=== PATIENT | male | born 1945 | race Caucasian/White ===

== ENCOUNTER 2019-05-09 12:01 | Observation (INO) ==
[2019-05-09] MEDS ORDERED: Naloxone 0.4 MG/ML INJ IVP ONE (12:09)
[2019-05-09] MEDS ORDERED: Ipratropium/Albuterol Neb 3 ML IH ONE (12:20)
[2019-05-09] MEDS ORDERED: Ipratropium/Albuterol Neb 3 ML ONE (12:41)
[2019-05-09 12:43] LABS: Bilirubin,Urine Negative (Negative); Blood,Urine Negative (Negative); Clarity,Urine Clear (Clear); Color,Urine Yellow (Yellow); Glucose,Urine (UA) Normal (Normal); Ketones,Urine Negative (Negative); Leukocyte Esterase,Urine Negative (Negative); Nitrite,Urine Negative (Negative); PH,Urine 6.5 pH Units (5.0-8.0); Protein,Urine Trace mg/dL (Neg-Trace); Specific Gravity,Urine 1.021 (1.010-1.025); Urobilinogen,Urine Normal (Normal)
[2019-05-09 12:54] LABS: Amphetamine Screen,Urine Negative ng/mL (Cutoff=1000); Barbiturate Screen,Urine Negative ng/mL (Cutoff=200); Benzodiazepines Screen,Urine Positive ng/mL (Cutoff=200); Cannabinoid Screen,Urine Positive ng/mL (Cutoff = 50); Cocaine Screen,Urine Negative ng/mL (Cutoff= 300); Opiate Screen,Urine Positive ng/mL (Cutoff=300); Phencyclidine Screen,Urine Negative ng/mL (Cutoff=25)
[2019-05-09 13:01] LABS: ABG Base Excess 14 mEq/L (-2 to 3); ABG HCO3 43 mEq/L (21-27); ABG Oxygen Saturation 95 % (95-98); ABG PCO2 77 mmHg (35-45); ABG PH 7.35 pH Units (7.32-7.45); ABG PO2 84 mmHg (85-104); ABG TCO2 45 mEq/L (20-26)
[2019-05-09 13:35] LABS: Basophils % 0.2 %; Eosinophils % 0.2 %; Hematocrit 37.5 % (37.5-50.1); Hemoglobin 11.7 g/dL (12.9-16.9); Immature Granulocytes % 0.3 % (0-4); Lymphocytes # 0.4 K/mcL (0.6-4.6); Lymphocytes % 4.4 %; Mean Corpuscular HGB Conc 31.2 g/dL (31.6-35.5); Mean Corpuscular Hemoglobin 30.4 pg (28.0-33.3); Mean Corpuscular Volume 97.4 fL (83.0-100.0); Mean Platelet Volume 8.2 fL (9.4-12.4); Monocytes # 0.7 K/mcL (0.0-1.3); Monocytes % 6.7 %; Neutrophils # 8.7 K/mcL (1.6-8.9); Platelet Count 296 K/mcL (140-400); Red Blood Count 3.85 M/mcL (4.19-5.50); Red Cell Distribution Width 13.6 % (11.5-14.5); Segmented Neutrophils % 88.2 %; White Blood Count 9.8 K/mcL (4.3-11.1)
[2019-05-09 14:15] LABS: Alanine Aminotransferase 13 Units/L (7-52); Albumin 3.3 g/dL (3.5-5.7); Albumin/Globulin Ratio 0.9 (1.1-2.2); Alkaline Phosphatase 84 Units/L (34-104); Aspartate Amino Transferase 12 Units/L (13-39); BUN/Creatinine Ratio 18 (6-26); Bilirubin,Direct 0.1 mg/dL (0.0-0.2); Bilirubin,Indirect 0.3 mg/dL (0.0-1.0); Bilirubin,Total 0.4 mg/dL (0.3-1.0); Blood Urea Nitrogen 15 mg/dL (8-23); Calcium 9.1 mg/dL (8.6-10.3); Carbon Dioxide > 45 mEq/L (23-29); Chloride 92 mEq/L (98-107); Ethanol < 10 mg/dL (Less than 10); Globulin 3.5 g/dL (2.4-3.5); Glucose 106 mg/dL (70-105); Osmolality,Calculated 285 (280-300); Sodium 137 mEq/L (136-145); Total Protein 6.8 g/dL (6.4-8.9); Troponin I < 0.03 ng/mL (< 0.04); eGFR For African Americans > 60 (> 60); eGFR For Non-African Americans > 60 (> 60)
[2019-05-09] MEDS ORDERED: Ondansetron ODT 4 MG TAB.RAPDIS SL PRN (15:51)
[2019-05-09] MEDS ORDERED: Acetaminophen 325 MG TABLET PO PRN (15:51)
[2019-05-09] MEDS ORDERED: Naloxone 0.4 MG/ML INJ IVP PRN (15:51)
[2019-05-09] MEDS ORDERED: Diclofenac Sodium (DR) 75 MG TABLET.DR PO PRN (15:54)
[2019-05-09] MEDS ORDERED: GuaiFENesin Liq 200 MG/10 ML UDC PO PRN (15:54)
[2019-05-09] MEDS ORDERED: traZODone 50 MG TABLET PO PRN (15:54)
[2019-05-09 16:00] LABS: ABG Base Excess 15 mEq/L (-2 to 3); ABG HCO3 43 mEq/L (21-27); ABG Oxygen Saturation 89 % (95-98); ABG PCO2 70 mmHg (35-45); ABG PO2 61 mmHg (85-104); ABG TCO2 46 mEq/L (20-26)
[2019-05-09] MEDS: *HR* Heparin 5,000 UNIT/ML VIAL SQ SCH (18:12)
[2019-05-09] MEDS: Gabapentin 300 MG CAPSULE PO SCH (21:14)
[2019-05-09] MEDS: Lidocaine OINT 35.44 GM TUBE TP SCH (21:14)
[2019-05-09] MEDS: Budesonide/Formoterol 160/4.5 1 PUFF INH IH SCH (22:03)
[2019-05-10] MEDS: *HR* Heparin 5,000 UNIT/ML VIAL SQ SCH ×2 (05:04→18:50)
[2019-05-10 06:05] LABS: Hematocrit 39.3 % (37.5-50.1); Hemoglobin 12.3 g/dL (12.9-16.9); Mean Corpuscular HGB Conc 31.3 g/dL (31.6-35.5); Mean Corpuscular Hemoglobin 29.9 pg (28.0-33.3); Mean Corpuscular Volume 95.6 fL (83.0-100.0); Mean Platelet Volume 8.3 fL (9.4-12.4); Platelet Count 341 K/mcL (140-400); Red Blood Count 4.11 M/mcL (4.19-5.50); Red Cell Distribution Width 13.6 % (11.5-14.5); White Blood Count 8.3 K/mcL (4.3-11.1)
[2019-05-10 06:08] LABS: VBG HCO3 37 mEq/L (21-27); VBG PCO2 65 mmHg (41-51); VBG PH 7.36 pH Units (7.32-7.42); VBG PO2 66 mmHg (25-50)
[2019-05-10 06:22] LABS: BUN/Creatinine Ratio 20 (6-26); Blood Urea Nitrogen 14 mg/dL (8-23); Carbon Dioxide 38 mEq/L (23-29); Chloride 91 mEq/L (98-107); Glucose 93 mg/dL (70-105); Osmolality,Calculated 280 (280-300); Phosphorous 3.2 mg/dL (2.7-4.5); Potassium 3.9 mEq/L (3.5-5.1); Sodium 135 mEq/L (136-145); eGFR For African Americans > 60 (> 60); eGFR For Non-African Americans > 60 (> 60)
[2019-05-10] MEDS: Budesonide/Formoterol 160/4.5 1 PUFF INH IH SCH ×2 (07:47→22:03)
[2019-05-10] MEDS ORDERED: Ipratropium/Albuterol Neb 3 ML IH ONE (08:27)
[2019-05-10] MEDS: Diltiazem CD (24hr) 180 MG CAPSULE PO SCH (08:29)
[2019-05-10] MEDS: Metoprolol XL (24 HR) Succ 50 MG TAB.ER.24H PO SCH (08:29)
[2019-05-10] MEDS: Aspirin 81 MG TAB.CHEW PO SCH (08:29)
[2019-05-10] MEDS: Lidocaine OINT 35.44 GM TUBE TP SCH ×2 (08:32→20:34)
[2019-05-10] MEDS: Fluticasone Propionate Nasal 50 MCG/SPRAY BOTTLE NS SCH (08:32)
[2019-05-10] MEDS: Ketorolac 30 MG/ML VIAL IVP PRN (18:47)
[2019-05-10] MEDS: Gabapentin 300 MG CAPSULE PO SCH (20:34)
[2019-05-11] MEDS: Ipratropium/Albuterol Neb 3 ML IH PRN ×2 (04:18→07:55)
[2019-05-11] MEDS: *HR* Heparin 5,000 UNIT/ML VIAL SQ SCH (06:09)
[2019-05-11] MEDS: Budesonide/Formoterol 160/4.5 1 PUFF INH IH SCH (07:52)
[2019-05-11] MEDS: Metoprolol XL (24 HR) Succ 50 MG TAB.ER.24H PO SCH (07:55)
[2019-05-11] MEDS: Aspirin 81 MG TAB.CHEW PO SCH (07:55)
[2019-05-11] MEDS: Diltiazem CD (24hr) 180 MG CAPSULE PO SCH (07:55)
[2019-05-11] MEDS: Fluticasone Propionate Nasal 50 MCG/SPRAY BOTTLE NS SCH (07:56)
[2019-05-11] MEDS: Ketorolac 30 MG/ML VIAL IVP PRN ×2 (08:06→15:49)
[2019-05-11 12:34] VITALS: BP 142/75
== END 2019-05-11 16:51 | disposition home health service (06) ==
LOC: EMEROOARM 12:01 → SUATTDRO 16:34 → INTOOBSV 16:34 → 2NNU 16:34 → 3ANU 05-10 15:07
PROVIDERS: ADMIT Internal Medicine; ATTEND Internal Medicine

== ENCOUNTER 2019-12-24 22:41 | Inpatient (IN) ==
[2019-12-24] MEDS ORDERED: 0.9 % Sodium Chloride 1,000 ML IVC ONE (22:51)
[2019-12-24] MEDS ORDERED: Isovue-370 500 ML BOTTLE IVP ONE (22:59)
[2019-12-24] MEDS ORDERED: methylPREDNISolone 125 MG/2 ML VIAL IVP ONE (22:59)
[2019-12-24] MEDS ORDERED: Ipratropium/Albuterol Neb 3 ML IH ONE (22:59)
[2019-12-24 23:19] LABS: Basophils % 0.3 %; Hematocrit 38.2 % (37.5-50.1); Hemoglobin 11.2 g/dL (12.9-16.9); Lymphocytes # 0.6 K/mcL (0.6-4.6); Lymphocytes % 5.2 %; Mean Corpuscular HGB Conc 29.3 g/dL (31.6-35.5); Mean Corpuscular Hemoglobin 28.1 pg (28.0-33.3); Mean Corpuscular Volume 95.7 fL (83.0-100.0); Mean Platelet Volume 9.3 fL (9.4-12.4); Monocytes # 0.9 K/mcL (0.0-1.3); Monocytes % 7.7 %; Platelet Count 242 K/mcL (140-400); Red Blood Count 3.99 M/mcL (4.19-5.50); Segmented Neutrophils % 85.8 %; White Blood Count 11.6 K/mcL (4.3-11.1)
[2019-12-24 23:26] LABS: VBG HCO3 22 mEq/L (21-27); VBG PCO2 53 mmHg (41-51); VBG PH 7.22 pH Units (7.32-7.42); VBG PO2 246 mmHg (25-50)
[2019-12-24 23:29] LABS: INR 1.1; Prothrombin Time 12.3 Seconds (9.4-12.1)
[2019-12-24 23:32] LABS: Activated Partial Thrombo Time 31.2 Seconds (26.0-36.0)
[2019-12-24 23:41] LABS: Alanine Aminotransferase 12 Units/L (7-52); Albumin 4.1 g/dL (3.5-5.7); Albumin/Globulin Ratio 1.4 (1.1-2.2); Alkaline Phosphatase 94 Units/L (34-104); Aspartate Amino Transferase 13 Units/L (13-39); BUN/Creatinine Ratio 21 (6-26); Bilirubin,Direct 0.2 mg/dL (0.0-0.2); Bilirubin,Indirect 0.5 mg/dL (0.0-1.0); Bilirubin,Total 0.7 mg/dL (0.3-1.0); Blood Urea Nitrogen 14 mg/dL (8-23); Calcium 8.7 mg/dL (8.6-10.3); Carbon Dioxide 36 mEq/L (23-29); Chloride 92 mEq/L (98-107); Ethanol < 10 mg/dL (Less than 10); Glucose 170 mg/dL (70-105); Osmolality,Calculated 282 (280-300); Phosphorous 3.8 mg/dL (2.7-4.5); Potassium 4.4 mEq/L (3.5-5.1); Sodium 134 mEq/L (136-145); Total Protein 7.1 g/dL (6.4-8.9); Troponin I < 0.03 ng/mL (< 0.04); eGFR For African Americans > 60 (> 60); eGFR For Non-African Americans > 60 (> 60)
[2019-12-24 23:51] LABS: Bilirubin,Urine Negative (Negative); Blood,Urine Negative (Negative); Clarity,Urine Clear (Clear); Color,Urine Yellow (Yellow); Glucose,Urine (UA) Normal (Normal); Ketones,Urine Negative (Negative); Leukocyte Esterase,Urine Negative (Negative); Mucus,Urine Few per lpf (None-Few); Nitrite,Urine Negative (Negative); Protein,Urine 50 mg/dL (Neg-Trace); RBC,Urine 0-3 per hpf (0-3); Specific Gravity,Urine 1.024 (1.010-1.025); Urobilinogen,Urine Normal (Normal); WBC,Urine 0-3 per hpf (0-3)
[2019-12-24] MEDS ORDERED: cefTRIAXone 1,000 MG in Water for inj. (sterile) 10 ML IVP ONE (23:59)
[2019-12-24] MEDS ORDERED: *HR* LORazepam 2 MG/ML VIAL IVP ONE (23:59)
[2019-12-25] MEDS ORDERED: Azithromycin 500 MG in 0.9 % Sodium Chloride 250 ML IVPB ONE (00:01)
[2019-12-25] MEDS ORDERED: *HR* Promethazine 25 MG/ML VIAL IVP PRN (02:18)
[2019-12-25] MEDS ORDERED: Naloxone 0.4 MG/ML INJ IVP PRN (02:18)
[2019-12-25 04:03] LABS: ABG Base Excess 5 mEq/L (-2 to 3); ABG HCO3 38 mEq/L (21-27); ABG Oxygen Saturation 92 % (95-98); ABG PCO2 106 mmHg (35-45); ABG PH 7.16 pH Units (7.32-7.45); ABG PO2 86 mmHg (85-104); ABG TCO2 41 mEq/L (20-26)
[2019-12-25 04:57] LABS: Chol/HDL Ratio 1.9 (0-4.9); Cholesterol 110 mg/dL (< 200); HDL Cholesterol 59 mg/dL (40-59); LDL Cholesterol,Calculated 45 mg/dL (< 100); Magnesium 2.2 mg/dL (1.6-2.6); Phosphorous 3.8 mg/dL (2.7-4.5); Triglycerides 31 mg/dL (< 150); Troponin I < 0.03 ng/mL (< 0.04)
[2019-12-25] MEDS ORDERED: 0.9 % Sodium Chloride 1,000 ML ONE (05:11)
[2019-12-25] MEDS ORDERED: Artificial Tears SOLN 15 ML BOTTLE BOTH EYES PRN (05:23)
[2019-12-25 05:27] LABS: ABG Base Excess 8 mEq/L (-2 to 3); ABG HCO3 41 mEq/L (21-27); ABG Oxygen Saturation 95 % (95-98); ABG PCO2 108 mmHg (35-45); ABG PH 7.18 pH Units (7.32-7.45); ABG PO2 98 mmHg (85-104); ABG TCO2 44 mEq/L (20-26); Blood Gas Modality avaps; Blood Gas Pressure Support 20 cm H2O; Blood Gas VT 550 cc
[2019-12-25] MEDS: *HR* Heparin 5,000 UNIT/ML VIAL SQ SCH ×3 (05:47→23:14)
[2019-12-25] MEDS: FentaNYL (PF) 1,000 MCG/100 ML IV.SOLN IVC SCH (05:47)
[2019-12-25] MEDS: Dexmedetomidine HCl 400 MCG/100 ML MLS IVC SCH (05:47)
[2019-12-25 05:58] LABS: VBG Ionized Calcium 1.08 mmol/L (1.15-1.35)
[2019-12-25 05:58] LABS: Basophils % 0.2 %; Hemoglobin 11.4 g/dL (12.9-16.9)
[2019-12-25 06:00] LABS: Hematocrit 39.7 % (37.5-50.1); Immature Granulocytes % 1.1 % (0-4); Lymphocytes # 0.1 K/mcL (0.6-4.6); Lymphocytes % 1.5 %; Mean Corpuscular HGB Conc 28.7 g/dL (31.6-35.5); Mean Corpuscular Hemoglobin 27.7 pg (28.0-33.3); Mean Corpuscular Volume 96.4 fL (83.0-100.0); Mean Platelet Volume 9.3 fL (9.4-12.4); Monocytes # 0.1 K/mcL (0.0-1.3); Monocytes % 1.4 %; Neutrophils # 8.8 K/mcL (1.6-8.9); Platelet Count 231 K/mcL (140-400); Red Blood Count 4.12 M/mcL (4.19-5.50); Red Cell Distribution Width 16.9 % (11.5-14.5); Segmented Neutrophils % 95.8 %; White Blood Count 9.2 K/mcL (4.3-11.1)
[2019-12-25 06:16] LABS: Alanine Aminotransferase 41 Units/L (7-52); Albumin/Globulin Ratio 1.3 (1.1-2.2); Alkaline Phosphatase 97 Units/L (34-104); Aspartate Amino Transferase 38 Units/L (13-39); BUN/Creatinine Ratio 19 (6-26); Bilirubin,Total 0.5 mg/dL (0.3-1.0); Blood Urea Nitrogen 13 mg/dL (8-23); Calcium 8.4 mg/dL (8.6-10.3); Carbon Dioxide 39 mEq/L (23-29); Chloride 94 mEq/L (98-107); Glucose 170 mg/dL (70-105); Magnesium 2.2 mg/dL (1.6-2.6); Osmolality,Calculated 280 (280-300); Phosphorous 3.9 mg/dL (2.7-4.5); Potassium 5.2 mEq/L (3.5-5.1); Sodium 133 mEq/L (136-145); eGFR For African Americans > 60 (> 60); eGFR For Non-African Americans > 60 (> 60)
[2019-12-25 06:31] LABS: ABG Base Excess 10 mEq/L (-2 to 3); ABG HCO3 40 mEq/L (21-27); ABG Oxygen Saturation 96 % (95-98); ABG PCO2 81 mmHg (35-45); ABG PO2 96 mmHg (85-104); ABG TCO2 42 mEq/L (20-26); Blood Gas VT 500 cc
[2019-12-25 06:44] LABS: Basophilic Stippling 1+ (Not Present); Platelet Estimate Normal (Normal)
[2019-12-25] MEDS: Artificial Tears SOLN 15 ML BOTTLE BOTH EYES SCH ×5 (07:45→23:16)
[2019-12-25] MEDS: Pantoprazole 40 MG VIAL IVP SCH (07:46)
[2019-12-25] MEDS: Chlorhexidine Rinse 15 ML MOUTHWASH MM SCH ×2 (07:46→19:18)
[2019-12-25] MEDS: Budesonide/Formoterol 160/4.5 1 PUFF INH IH SCH ×2 (09:09→20:16)
[2019-12-25] MEDS ORDERED: *HR* Midazolam HCl 5 MG/5 ML VIAL IVP ONE (11:26)
[2019-12-25] MEDS ORDERED: *HR* Etomidate 20 MG/10 ML AMPUL IVP ONE (11:26)
[2019-12-25] MEDS: Ipratropium/Albuterol Neb 3 ML IH SCH ×3 (15:38→23:08)
[2019-12-25] MEDS: MethylPREDNISolone 40 MG/ML VIAL IVP SCH (17:24)
[2019-12-25] MEDS ORDERED: Azithromycin 500 MG in 0.9 % Sodium Chloride 250 ML IVPB SCH (18:00)
[2019-12-25] MEDS ORDERED: cefTRIAXone 1,000 MG in 0.9 % Sodium Chloride Mini Bag 100 ML IVPB SCH (18:00)
[2019-12-26] MEDS: Artificial Tears SOLN 15 ML BOTTLE BOTH EYES SCH ×2 (03:11→08:14)
[2019-12-26] MEDS: Ipratropium/Albuterol Neb 3 ML IH SCH ×7 (03:28→23:49)
[2019-12-26] MEDS ORDERED: Dexmedetomidine HCl 400 MCG/100 ML MLS IVC ONE (05:24)
[2019-12-26] MEDS: Dexmedetomidine HCl 400 MCG/100 ML MLS IVC SCH ×3 (06:11→22:14)
[2019-12-26] MEDS: FentaNYL (PF) 1,000 MCG/100 ML IV.SOLN IVC SCH (06:12)
[2019-12-26 06:14] LABS: Hematocrit 36.6 % (37.5-50.1); Hemoglobin 10.7 g/dL (12.9-16.9); Immature Granulocytes % 0.7 % (0-4); Lymphocytes # 0.4 K/mcL (0.6-4.6); Lymphocytes % 7.2 %; Mean Corpuscular HGB Conc 29.2 g/dL (31.6-35.5); Mean Corpuscular Hemoglobin 27.4 pg (28.0-33.3); Mean Corpuscular Volume 93.6 fL (83.0-100.0); Mean Platelet Volume 9.2 fL (9.4-12.4); Monocytes # 0.6 K/mcL (0.0-1.3); Monocytes % 10.3 %; Platelet Count 244 K/mcL (140-400); Red Blood Count 3.91 M/mcL (4.19-5.50); Red Cell Distribution Width 17.2 % (11.5-14.5); Segmented Neutrophils % 81.8 %; White Blood Count 6.1 K/mcL (4.3-11.1)
[2019-12-26] MEDS: MethylPREDNISolone 40 MG/ML VIAL IVP SCH (06:19)
[2019-12-26] MEDS: *HR* Heparin 5,000 UNIT/ML VIAL SQ SCH ×3 (06:19→20:31)
[2019-12-26 06:29] LABS: BUN/Creatinine Ratio 21 (6-26); Blood Urea Nitrogen 13 mg/dL (8-23); Calcium 8.7 mg/dL (8.6-10.3); Carbon Dioxide 40 mEq/L (23-29); Chloride 93 mEq/L (98-107); Glucose 101 mg/dL (70-105); Osmolality,Calculated 284 (280-300); Potassium 4.1 mEq/L (3.5-5.1); Sodium 137 mEq/L (136-145); eGFR For African Americans > 60 (> 60); eGFR For Non-African Americans > 60 (> 60)
[2019-12-26] MEDS: Budesonide/Formoterol 160/4.5 1 PUFF INH IH SCH ×2 (07:25→19:44)
[2019-12-26] MEDS: Chlorhexidine Rinse 15 ML MOUTHWASH MM SCH (08:13)
[2019-12-26] MEDS: Pantoprazole 40 MG VIAL IVP SCH (08:13)
[2019-12-26] MEDS ORDERED: Metoprolol XL (24 HR) Succ 50 MG TAB.ER.24H PO SCH (09:30)
[2019-12-26] MEDS ORDERED: Budesonide/Formoterol 160/4.5 1 PUFF INH IH SCH (10:00)
[2019-12-26] MEDS ORDERED: Naloxone 0.4 MG/ML INJ IVP PRN (11:18)
[2019-12-26] MEDS: Gabapentin 300 MG CAPSULE PO SCH ×2 (14:06→20:31)
[2019-12-26] MEDS ORDERED: Gabapentin 300 MG CAPSULE PO SCH (15:00)
[2019-12-26] MEDS: cefTRIAXone 1,000 MG in 0.9 % Sodium Chloride Mini Bag 100 ML IVPB SCH (18:11)
[2019-12-26] MEDS: Azithromycin 500 MG in 0.9 % Sodium Chloride 250 ML IVPB SCH (18:47)
[2019-12-26] MEDS: traZODone 50 MG TABLET PO SCH (20:31)
[2019-12-26] MEDS ORDERED: traZODone 50 MG TABLET PO SCH (21:00)
[2019-12-27] MEDS: Ipratropium/Albuterol Neb 3 ML IH SCH ×5 (03:29→20:01)
[2019-12-27 05:05] LABS: Immature Granulocytes % 0.6 % (0-4); Red Cell Distribution Width 17.2 % (11.5-14.5)
[2019-12-27 05:07] LABS: Basophils % 0.2 %; Hematocrit 36.1 % (37.5-50.1); Hemoglobin 10.6 g/dL (12.9-16.9); Lymphocytes # 0.8 K/mcL (0.6-4.6); Lymphocytes % 14.7 %; Mean Corpuscular HGB Conc 29.4 g/dL (31.6-35.5); Mean Corpuscular Hemoglobin 27.9 pg (28.0-33.3); Monocytes # 0.6 K/mcL (0.0-1.3); Neutrophils # 3.8 K/mcL (1.6-8.9); Platelet Count 225 K/mcL (140-400); Segmented Neutrophils % 73.5 %; White Blood Count 5.1 K/mcL (4.3-11.1)
[2019-12-27 05:29] LABS: Alanine Aminotransferase 21 Units/L (7-52); Albumin 3.7 g/dL (3.5-5.7); Albumin/Globulin Ratio 1.4 (1.1-2.2); Alkaline Phosphatase 77 Units/L (34-104); Aspartate Amino Transferase 16 Units/L (13-39); BUN/Creatinine Ratio 23 (6-26); Bilirubin,Total 0.5 mg/dL (0.3-1.0); Blood Urea Nitrogen 16 mg/dL (8-23); Calcium 8.8 mg/dL (8.6-10.3); Carbon Dioxide 42 mEq/L (23-29); Chloride 96 mEq/L (98-107); Globulin 2.6 g/dL (2.4-3.5); Glucose 111 mg/dL (70-105); Magnesium 2.1 mg/dL (1.6-2.6); Osmolality,Calculated 292 (280-300); Phosphorous 2.9 mg/dL (2.7-4.5); Potassium 3.9 mEq/L (3.5-5.1); Sodium 140 mEq/L (136-145); Total Protein 6.3 g/dL (6.4-8.9); eGFR For African Americans > 60 (> 60); eGFR For Non-African Americans > 60 (> 60)
[2019-12-27] MEDS: *HR* Heparin 5,000 UNIT/ML VIAL SQ SCH ×3 (06:24→21:17)
[2019-12-27] MEDS: MethylPREDNISolone 40 MG/ML VIAL IVP SCH (08:34)
[2019-12-27] MEDS: Metoprolol XL (24 HR) Succ 50 MG TAB.ER.24H PO SCH (08:35)
[2019-12-27] MEDS: Ascorbic Acid 500 MG TABLET PO SCH (08:35)
[2019-12-27] MEDS: Gabapentin 300 MG CAPSULE PO SCH ×3 (08:35→21:17)
[2019-12-27] MEDS: Loratadine 10 MG TABLET PO SCH (08:35)
[2019-12-27] MEDS: Dexmedetomidine HCl 400 MCG/100 ML MLS IVC SCH (08:36)
[2019-12-27] MEDS: Fluticasone Propionate Nasal 50 MCG/SPRAY BOTTLE NS SCH (08:37)
[2019-12-27] MEDS: amLODIPine 5 MG TABLET PO SCH (08:38)
[2019-12-27] MEDS ORDERED: amLODIPine 5 MG TABLET PO SCH (09:00)
[2019-12-27] MEDS ORDERED: Loratadine 10 MG TABLET PO SCH (09:00)
[2019-12-27] MEDS ORDERED: Fluticasone Propionate Nasal 50 MCG/SPRAY BOTTLE NS SCH (09:00)
[2019-12-27] MEDS ORDERED: Ascorbic Acid 500 MG TABLET PO SCH (09:00)
[2019-12-27] MEDS ORDERED: NON-FORMULARY MEDICATION 1 EACH EACH (Roflumilast [Daliresp] 500 MCG) PO SCH (09:00)
[2019-12-27] MEDS: Budesonide/Formoterol 160/4.5 1 PUFF INH IH SCH ×2 (11:02→20:01)
[2019-12-27] MEDS: cefTRIAXone 1,000 MG in 0.9 % Sodium Chloride Mini Bag 100 ML IVPB SCH (15:55)
[2019-12-27] MEDS: Azithromycin 500 MG in 0.9 % Sodium Chloride 250 ML IVPB SCH (17:42)
[2019-12-27] MEDS: traZODone 50 MG TABLET PO SCH (21:17)
[2019-12-27] MEDS ORDERED: Dexmedetomidine HCl 400 MCG/100 ML MLS IVC SCH (21:45)
[2019-12-28] MEDS: Ipratropium/Albuterol Neb 3 ML IH SCH ×7 (00:13→23:43)
[2019-12-28 03:04] LABS: BUN/Creatinine Ratio 32 (6-26); Blood Urea Nitrogen 23 mg/dL (8-23); Calcium 9.2 mg/dL (8.6-10.3); Carbon Dioxide 36 mEq/L (23-29); Chloride 97 mEq/L (98-107); Glucose 119 mg/dL (70-105); Osmolality,Calculated 295 (280-300); Sodium 140 mEq/L (136-145); eGFR For African Americans > 60 (> 60); eGFR For Non-African Americans > 60 (> 60)
[2019-12-28] MEDS: *HR* Heparin 5,000 UNIT/ML VIAL SQ SCH ×3 (04:58→23:38)
[2019-12-28] MEDS: Budesonide/Formoterol 160/4.5 1 PUFF INH IH SCH ×2 (07:10→19:35)
[2019-12-28] MEDS: Gabapentin 300 MG CAPSULE PO SCH ×3 (08:12→23:38)
[2019-12-28] MEDS: Metoprolol XL (24 HR) Succ 50 MG TAB.ER.24H PO SCH (08:12)
[2019-12-28] MEDS: amLODIPine 5 MG TABLET PO SCH (08:12)
[2019-12-28] MEDS: Loratadine 10 MG TABLET PO SCH (08:13)
[2019-12-28] MEDS: Ascorbic Acid 500 MG TABLET PO SCH (08:13)
[2019-12-28] MEDS: MethylPREDNISolone 40 MG/ML VIAL IVP SCH (08:13)
[2019-12-28] MEDS: Fluticasone Propionate Nasal 50 MCG/SPRAY BOTTLE NS SCH (08:16)
[2019-12-28] MEDS: cefTRIAXone 1,000 MG in 0.9 % Sodium Chloride Mini Bag 100 ML IVPB SCH (17:43)
[2019-12-28] MEDS: Azithromycin 500 MG in 0.9 % Sodium Chloride 250 ML IVPB SCH (17:43)
[2019-12-28] MEDS: traZODone 50 MG TABLET PO SCH (23:38)
[2019-12-29] MEDS: Ipratropium/Albuterol Neb 3 ML IH SCH ×6 (03:38→23:56)
[2019-12-29 04:08] LABS: ABG Base Excess 11 mEq/L (-2 to 3); ABG HCO3 39 mEq/L (21-27); ABG Oxygen Saturation 96 % (95-98); ABG PCO2 71 mmHg (35-45); ABG PH 7.35 pH Units (7.32-7.45); ABG PO2 86 mmHg (85-104); ABG TCO2 42 mEq/L (20-26)
[2019-12-29] MEDS: *HR* Heparin 5,000 UNIT/ML VIAL SQ SCH ×3 (06:45→21:41)
[2019-12-29 07:51] LABS: BUN/Creatinine Ratio 23 (6-26); Blood Urea Nitrogen 17 mg/dL (8-23); Calcium 9.2 mg/dL (8.6-10.3); Carbon Dioxide 41 mEq/L (23-29); Chloride 93 mEq/L (98-107); Glucose 94 mg/dL (70-105); Osmolality,Calculated 289 (280-300); Potassium 3.3 mEq/L (3.5-5.1); Sodium 139 mEq/L (136-145); eGFR For African Americans > 60 (> 60); eGFR For Non-African Americans > 60 (> 60)
[2019-12-29] MEDS: Budesonide/Formoterol 160/4.5 1 PUFF INH IH SCH ×2 (08:19→19:39)
[2019-12-29] MEDS: MethylPREDNISolone 40 MG/ML VIAL IVP SCH (10:12)
[2019-12-29] MEDS: amLODIPine 5 MG TABLET PO SCH (10:13)
[2019-12-29] MEDS: Loratadine 10 MG TABLET PO SCH (10:13)
[2019-12-29] MEDS: Gabapentin 300 MG CAPSULE PO SCH ×3 (10:13→21:42)
[2019-12-29] MEDS: Metoprolol XL (24 HR) Succ 50 MG TAB.ER.24H PO SCH (10:14)
[2019-12-29] MEDS: Ascorbic Acid 500 MG TABLET PO SCH (10:14)
[2019-12-29] MEDS: Fluticasone Propionate Nasal 50 MCG/SPRAY BOTTLE NS SCH (10:16)
[2019-12-29] MEDS ORDERED: Azithromycin 250 MG TABLET PO ONE (14:54)
[2019-12-29] MEDS: cefTRIAXone 1,000 MG in Water for inj. (sterile) 10 ML IVP SCH (15:07)
[2019-12-29] MEDS: traZODone 50 MG TABLET PO SCH (21:42)
[2019-12-30] MEDS: Ipratropium/Albuterol Neb 3 ML IH SCH ×4 (03:34→21:22)
[2019-12-30] MEDS: *HR* Heparin 5,000 UNIT/ML VIAL SQ SCH ×3 (06:45→20:32)
[2019-12-30] MEDS: amLODIPine 5 MG TABLET PO SCH (08:59)
[2019-12-30] MEDS: Gabapentin 300 MG CAPSULE PO SCH ×3 (08:59→20:32)
[2019-12-30] MEDS: Metoprolol XL (24 HR) Succ 50 MG TAB.ER.24H PO SCH (08:59)
[2019-12-30] MEDS: cefTRIAXone 1,000 MG in Water for inj. (sterile) 10 ML IVP SCH (09:00)
[2019-12-30] MEDS: Loratadine 10 MG TABLET PO SCH (09:00)
[2019-12-30] MEDS: MethylPREDNISolone 40 MG/ML VIAL IVP SCH (09:00)
[2019-12-30] MEDS ORDERED: Ergocalciferol (VIT D2) 50,000 UNIT (1.25MG) CAP PO SCH ×2 (09:00)
[2019-12-30] MEDS: Ascorbic Acid 500 MG TABLET PO SCH (09:00)
[2019-12-30] MEDS: Fluticasone Propionate Nasal 50 MCG/SPRAY BOTTLE NS SCH (09:01)
[2019-12-30] MEDS: Budesonide/Formoterol 160/4.5 1 PUFF INH IH SCH ×2 (10:56→21:22)
[2019-12-30] MEDS: traZODone 50 MG TABLET PO SCH (20:32)
[2019-12-31] MEDS: *HR* Heparin 5,000 UNIT/ML VIAL SQ SCH ×3 (06:15→21:13)
[2019-12-31] MEDS: Budesonide/Formoterol 160/4.5 1 PUFF INH IH SCH ×2 (07:42→21:41)
[2019-12-31] MEDS: Ipratropium/Albuterol Neb 3 ML IH SCH ×2 (07:42→21:42)
[2019-12-31] MEDS: Ascorbic Acid 500 MG TABLET PO SCH (10:18)
[2019-12-31] MEDS: predniSONE 20 MG TABLET PO SCH (10:20)
[2019-12-31] MEDS: Loratadine 10 MG TABLET PO SCH (10:21)
[2019-12-31] MEDS: amLODIPine 5 MG TABLET PO SCH (10:21)
[2019-12-31] MEDS: Metoprolol XL (24 HR) Succ 50 MG TAB.ER.24H PO SCH (10:21)
[2019-12-31] MEDS: Gabapentin 300 MG CAPSULE PO SCH ×3 (10:21→21:06)
[2019-12-31] MEDS: Fluticasone Propionate Nasal 50 MCG/SPRAY BOTTLE NS SCH (10:28)
[2019-12-31] MEDS: traZODone 50 MG TABLET PO SCH (21:13)
[2020-01-01] MEDS: *HR* Heparin 5,000 UNIT/ML VIAL SQ SCH (05:33)
[2020-01-01 07:10] VITALS: BP 165/87
[2020-01-01] MEDS: Gabapentin 300 MG CAPSULE PO SCH (09:40)
[2020-01-01] MEDS: amLODIPine 5 MG TABLET PO SCH (09:40)
[2020-01-01] MEDS: predniSONE 20 MG TABLET PO SCH (09:40)
[2020-01-01] MEDS: Ascorbic Acid 500 MG TABLET PO SCH (09:40)
[2020-01-01] MEDS: Metoprolol XL (24 HR) Succ 50 MG TAB.ER.24H PO SCH (09:41)
[2020-01-01] MEDS: Loratadine 10 MG TABLET PO SCH (09:41)
[2020-01-01] MEDS: Fluticasone Propionate Nasal 50 MCG/SPRAY BOTTLE NS SCH (09:42)
[2020-01-01] MEDS: Budesonide/Formoterol 160/4.5 1 PUFF INH IH SCH (09:56)
[2020-01-01] MEDS: Ipratropium/Albuterol Neb 3 ML IH SCH (09:56)
== END 2020-01-01 11:27 | disposition home or self-care (01) | DRG 208 ==
LOC: EMEROOARM 22:41 → 2NNU 22:41 → ICNU 12-25 03:57 → SUATTDRO 12-25 06:19 → 2NNU 12-26 14:28 → 2ANU 12-28 16:57
PROVIDERS: ADMIT Internal Medicine; ATTEND Internal Medicine

== ENCOUNTER 2020-04-23 14:17 | Observation (INO) ==
[2020-04-23 14:46] LABS: Basophils % 0.2 %; Hematocrit 43.6 % (37.5-50.1); Immature Granulocytes % 0.9 % (0-4)
[2020-04-23 14:47] LABS: Basophils # 0.1 K/mcL (0.0-0.2); Hemoglobin 13.5 g/dL (12.9-16.9); Lymphocytes # 0.6 K/mcL (0.6-4.6); Lymphocytes % 2.4 %; Mean Corpuscular Hemoglobin 30.9 pg (28.0-33.3); Mean Corpuscular Volume 99.8 fL (83.0-100.0); Mean Platelet Volume 8.5 fL (9.4-12.4); Monocytes # 1.3 K/mcL (0.0-1.3); Monocytes % 4.9 %; Platelet Count 237 K/mcL (140-400); Red Blood Count 4.37 M/mcL (4.19-5.50); Red Cell Distribution Width 13.9 % (11.5-14.5); Segmented Neutrophils % 91.6 %; White Blood Count 25.9 K/mcL (4.3-11.1)
[2020-04-23 14:53] LABS: Neutrophils # 23.7 K/mcL (1.6-8.9)
[2020-04-23 15:04] LABS: Prothrombin Time 12.1 Seconds (9.4-12.1)
[2020-04-23 15:08] LABS: Alanine Aminotransferase 8 Units/L (7-52); Albumin 3.8 g/dL (3.5-5.7); Albumin/Globulin Ratio 1.5 (1.1-2.2); Alkaline Phosphatase 88 Units/L (34-104); Aspartate Amino Transferase 11 Units/L (13-39); BUN/Creatinine Ratio 17 (6-26); Bilirubin,Direct 0.1 mg/dL (0.0-0.2); Bilirubin,Indirect 0.8 mg/dL (0.0-1.0); Bilirubin,Total 0.9 mg/dL (0.3-1.0); Blood Urea Nitrogen 15 mg/dL (8-23); Carbon Dioxide 38 mEq/L (23-29); Chloride 93 mEq/L (98-107); Globulin 2.5 g/dL (2.4-3.5); Glucose 123 mg/dL (70-105); Osmolality,Calculated 282 (280-300); Potassium 4.1 mEq/L (3.5-5.1); Sodium 135 mEq/L (136-145); Total Protein 6.3 g/dL (6.4-8.9); Troponin I < 0.03 ng/mL (< 0.04); eGFR For African Americans > 60 (> 60); eGFR For Non-African Americans > 60 (> 60)
[2020-04-23 15:13] LABS: Platelet Estimate Slight Decrease (Normal)
[2020-04-23] MEDS ORDERED: Ipratropium/Albuterol Neb 3 ML IH ONE (15:40)
[2020-04-23] MEDS ORDERED: methylPREDNISolone 125 MG/2 ML VIAL IVP ONE (15:40)
[2020-04-23] MEDS ORDERED: Azithromycin 500 MG in 0.9 % Sodium Chloride 250 ML IVPB ONE (17:39)
[2020-04-23] MEDS ORDERED: cefTRIAXone 1,000 MG in 0.9 % Sodium Chloride Mini Bag 100 ML IVPB ONE (17:39)
[2020-04-23] MEDS ORDERED: Ondansetron ODT 4 MG TAB.RAPDIS SL PRN (17:52)
[2020-04-23] MEDS ORDERED: Naloxone 0.4 MG/ML INJ IVP PRN (17:52)
[2020-04-23] MEDS ORDERED: Acetaminophen 325 MG TABLET PO PRN (17:52)
[2020-04-23] MEDS ORDERED: Vancomycin 1,250 MG/262.5 ML IV.SOLN IVPB ONE (18:30)
[2020-04-23] MEDS: Ipratropium/Albuterol Neb 3 ML IH SCH ×2 (20:51→23:40)
[2020-04-23 21:04] LABS: Bilirubin,Urine Negative (Negative); Blood,Urine Negative (Negative); Clarity,Urine Clear (Clear); Color,Urine Light-Yellow (Yellow); Glucose,Urine (UA) Normal (Normal); Ketones,Urine Negative (Negative); Leukocyte Esterase,Urine Negative (Negative); Nitrite,Urine Negative (Negative); PH,Urine 7.5 pH Units (5.0-8.0); Protein,Urine Trace mg/dL (Neg-Trace); Specific Gravity,Urine 1.021 (1.010-1.025); Urobilinogen,Urine Normal (Normal)
[2020-04-23] MEDS: traZODone 50 MG TABLET PO SCH (22:53)
[2020-04-23] MEDS: Gabapentin 300 MG CAPSULE PO SCH (22:53)
[2020-04-23] MEDS: Cefepime HCl 2,000 MG in Water for inj. (sterile) 20 ML IVP SCH (22:53)
[2020-04-23] MEDS: Vancomycin 1,250 MG/262.5 ML IV.SOLN IVPB SCH (23:30)
[2020-04-24] MEDS: MethylPREDNISolone 40 MG/ML VIAL IVP SCH ×3 (00:04→15:08)
[2020-04-24] MEDS: Ipratropium/Albuterol Neb 3 ML IH SCH ×5 (05:03→19:59)
[2020-04-24] MEDS: *HR* Enoxaparin 40 MG/0.4 ML SYRINGE SQ SCH (05:42)
[2020-04-24 07:41] LABS: BUN/Creatinine Ratio 24 (6-26); Blood Urea Nitrogen 17 mg/dL (8-23); Calcium 8.8 mg/dL (8.6-10.3); Carbon Dioxide 35 mEq/L (23-29); Chloride 96 mEq/L (98-107); Glucose 172 mg/dL (70-105); Osmolality,Calculated 292 (280-300); Sodium 138 mEq/L (136-145); eGFR For African Americans > 60 (> 60); eGFR For Non-African Americans > 60 (> 60)
[2020-04-24 07:50] LABS: Hematocrit 41.9 % (37.5-50.1); Hemoglobin 13.2 g/dL (12.9-16.9); Mean Corpuscular HGB Conc 31.5 g/dL (31.6-35.5); Mean Corpuscular Hemoglobin 30.9 pg (28.0-33.3); Mean Corpuscular Volume 98.1 fL (83.0-100.0); Mean Platelet Volume 8.7 fL (9.4-12.4); Platelet Count 211 K/mcL (140-400); Red Blood Count 4.27 M/mcL (4.19-5.50); Red Cell Distribution Width 14.1 % (11.5-14.5); White Blood Count 16.3 K/mcL (4.3-11.1)
[2020-04-24] MEDS: Gabapentin 300 MG CAPSULE PO SCH ×3 (08:17→20:34)
[2020-04-24] MEDS: Cefepime HCl 2,000 MG in Water for inj. (sterile) 20 ML IVP SCH (08:17)
[2020-04-24] MEDS: Metoprolol XL (24 HR) Succ 50 MG TAB.ER.24H PO SCH (08:17)
[2020-04-24] MEDS ORDERED: cefTRIAXone 2,000 MG in Water for inj. (sterile) 20 ML IVP SCH (09:00)
[2020-04-24] MEDS ORDERED: NON-FORMULARY MEDICATION 1 EACH EACH (Roflumilast [Daliresp] 500 MCG) PO SCH (09:00)
[2020-04-24] MEDS: Vancomycin 1,250 MG/262.5 ML IV.SOLN IVPB SCH (10:34)
[2020-04-24] MEDS ORDERED: Azithromycin 500 MG in 0.9 % Sodium Chloride 250 ML IVPB SCH (18:00)
[2020-04-24] MEDS: traZODone 50 MG TABLET PO SCH (20:34)
[2020-04-24] MEDS: cefTRIAXone 1,000 MG in Water for inj. (sterile) 10 ML IVP SCH (20:34)
[2020-04-25] MEDS: Ipratropium/Albuterol Neb 3 ML IH SCH ×5 (00:31→15:40)
[2020-04-25 01:49] LABS: Hematocrit 38.2 % (37.5-50.1); Hemoglobin 11.8 g/dL (12.9-16.9); Mean Corpuscular HGB Conc 30.9 g/dL (31.6-35.5); Mean Corpuscular Volume 97.2 fL (83.0-100.0); Mean Platelet Volume 8.5 fL (9.4-12.4); Platelet Count 199 K/mcL (140-400); Red Blood Count 3.93 M/mcL (4.19-5.50); White Blood Count 18.2 K/mcL (4.3-11.1)
[2020-04-25 02:10] LABS: BUN/Creatinine Ratio 36 (6-26); Blood Urea Nitrogen 25 mg/dL (8-23); Calcium 8.9 mg/dL (8.6-10.3); Carbon Dioxide 35 mEq/L (23-29); Chloride 97 mEq/L (98-107); Glucose 146 mg/dL (70-105); Osmolality,Calculated 289 (280-300); Potassium 4.1 mEq/L (3.5-5.1); Sodium 136 mEq/L (136-145); eGFR For African Americans > 60 (> 60); eGFR For Non-African Americans > 60 (> 60)
[2020-04-25] MEDS: *HR* Enoxaparin 40 MG/0.4 ML SYRINGE SQ SCH (05:46)
[2020-04-25] MEDS ORDERED: predniSONE 20 MG TABLET PO SCH ×2 (09:00)
[2020-04-25] MEDS ORDERED: cefTRIAXone 1,000 MG in 0.9 % Sodium Chloride Mini Bag 100 ML IVP SCH (09:00)
[2020-04-25] MEDS: Gabapentin 300 MG CAPSULE PO SCH ×2 (10:25→14:58)
[2020-04-25] MEDS: Metoprolol XL (24 HR) Succ 50 MG TAB.ER.24H PO SCH (10:25)
[2020-04-25] MEDS: cefTRIAXone 1,000 MG in Water for inj. (sterile) 10 ML IVP SCH (10:26)
[2020-04-25 16:06] VITALS: BP 143/83
[2020-04-25 17:24] LABS: Acinetobacter baumannii by PCR Not Detected (Not Detect); Enterobacter cloacae Cmplx PCR Not Detected (Not Detect); Enterobacteriaceae by PCR Not Detected (Not Detect); Enterococcus by PCR Not Detected (Not Detect); Escherichia coli by PCR Not Detected (Not Detect); Klebsiella oxytoca by PCR Not Detected (Not Detect); Klebsiella pneumoniae by PCR Not Detected (Not Detect); Proteus by PCR Not Detected (Not Detect); Serratia marcescens by PCR Not Detected (Not Detect); Staphylococcus aureus by PCR Not Detected (Not Detect); Staphylococcus by PCR DETECTED (Not Detect); Streptococcus agalactiae(B)PCR Not Detected (Not Detect); Streptococcus by PCR Not Detected (Not Detect); Streptococcus pneumoniae PCR Not Detected (Not Detect); Streptococcus pyogenes (A) PCR Not Detected (Not Detect); blaKPC Carbapenem-Resist Gene Not Detected (Not Detect); mecA Methicillin-Resist Gene DETECTED (Not Detect); vanA/B Vancomycin-Resist Genes Not Detected (Not Detect)
[2020-04-25 17:25] LABS: Candida albicans by PCR Not Detected (Not Detect); Candida glabrata by PCR Not Detected (Not Detect); Candida krusei by PCR Not Detected (Not Detect); Candida parapsilosis by PCR Not Detected (Not Detect); Candida tropicalis by PCR Not Detected (Not Detect); Pseudomonas aeruginosa by PCR Not Detected (Not Detect)
== END 2020-04-25 16:27 | disposition home or self-care (01) ==
LOC: EMEROOARM 14:17 → 3ANU 14:17
PROVIDERS: ADMIT Student in an Organized Health Care Education/Training Program; ATTEND Student in an Organized Health Care Education/Training Program

== ENCOUNTER 2020-11-11 00:12 | Inpatient (IN) ==
[2020-11-11] MEDS ORDERED: methylPREDNISolone 125 MG/2 ML VIAL IVP ONE (00:22)
[2020-11-11] MEDS ORDERED: Ipratropium/Albuterol Neb 3 ML IH ONE (00:22)
[2020-11-11 00:30] LABS: ABG Base Excess 12 mEq/L (-2 to 3); ABG HCO3 47 mEq/L (21-27); ABG Oxygen Saturation 100 % (95-98); ABG PCO2 119 mmHg (35-45); ABG PO2 220 mmHg (85-104); ABG TCO2 > 50 mEq/L (20-26)
[2020-11-11 00:57] LABS: Basophils % 0.5 %; Eosinophils % 0.5 %; Hematocrit 45.4 % (37.5-50.1); Immature Granulocytes % 0.9 % (0-4); Lymphocytes # 0.5 K/mcL (0.6-4.6); Lymphocytes % 5.2 %; Mean Corpuscular HGB Conc 30.8 g/dL (31.6-35.5); Mean Corpuscular Hemoglobin 32.2 pg (28.0-33.3); Mean Corpuscular Volume 104.4 fL (83.0-100.0); Mean Platelet Volume 8.6 fL (9.4-12.4); Monocytes # 0.6 K/mcL (0.0-1.3); Monocytes % 6.6 %; Neutrophils # 7.4 K/mcL (1.6-8.9); Platelet Count 171 K/mcL (140-400); Red Blood Count 4.35 M/mcL (4.19-5.50); Red Cell Distribution Width 13.8 % (11.5-14.5); Segmented Neutrophils % 86.3 %; White Blood Count 8.6 K/mcL (4.3-11.1)
[2020-11-11 01:05] LABS: Prothrombin Time 11.8 Seconds (9.4-12.1)
[2020-11-11 01:07] LABS: Activated Partial Thrombo Time 31.8 Seconds (26.0-36.0)
[2020-11-11 01:23] LABS: Alanine Aminotransferase 14 Units/L (7-52); Albumin 3.9 g/dL (3.5-5.7); Albumin/Globulin Ratio 1.4 (1.1-2.2); Alkaline Phosphatase 73 Units/L (34-104); Aspartate Amino Transferase 16 Units/L (13-39); BUN/Creatinine Ratio 25 (6-26); Bilirubin,Direct 0.2 mg/dL (0.0-0.2); Bilirubin,Indirect 0.6 mg/dL (0.0-1.0); Bilirubin,Total 0.8 mg/dL (0.3-1.0); Blood Urea Nitrogen 13 mg/dL (8-23); Calcium 8.8 mg/dL (8.6-10.3); Carbon Dioxide 41 mEq/L (23-29); Chloride 94 mEq/L (98-107); Globulin 2.8 g/dL (2.4-3.5); Glucose 141 mg/dL (70-105); Osmolality,Calculated 286 (280-300); Potassium 4.1 mEq/L (3.5-5.1); Sodium 137 mEq/L (136-145); Total Protein 6.7 g/dL (6.4-8.9); Troponin I < 0.03 ng/mL (< 0.04); eGFR For African Americans > 60 (> 60); eGFR For Non-African Americans > 60 (> 60)
[2020-11-11] MEDS ORDERED: Azithromycin 500 MG in 0.9 % Sodium Chloride 250 ML IVPB ONE (02:02)
[2020-11-11] MEDS ORDERED: cefTRIAXone 1,000 MG in Water for inj. (sterile) 10 ML IVP ONE (02:03)
[2020-11-11 02:11] LABS: ABG Base Excess 12 mEq/L (-2 to 3); ABG HCO3 44 mEq/L (21-27); ABG Oxygen Saturation 88 % (95-98); ABG PCO2 97 mmHg (35-45); ABG PH 7.26 pH Units (7.32-7.45); ABG PO2 68 mmHg (85-104); ABG TCO2 47 mEq/L (20-26); Blood Gas Modality ST
[2020-11-11] MEDS ORDERED: Acetaminophen 325 MG TABLET PO PRN (03:15)
[2020-11-11] MEDS ORDERED: Naloxone 0.4 MG/ML INJ IVP PRN (03:15)
[2020-11-11] MEDS ORDERED: Ondansetron 4 MG/2 ML VIAL IVP PRN (03:15)
[2020-11-11] MEDS ORDERED: Ipratropium/Albuterol Neb 3 ML IH PRN (04:00)
[2020-11-11 04:40] LABS: Adenovirus Not Detected (Not Detect); Bordetella Pertussis Not Detected (Not Detect); Chlamydophila pneumoniae Not Detected (Not Detect); Coronavirus 229E Not Detected (Not Detect); Coronavirus HKU1 Not Detected (Not Detect); Coronavirus NL63 Not Detected (Not Detect); Coronavirus OC43 Not Detected (Not Detect); Human Metapneumovirus Not Detected (Not Detect); Human Rhinovirus/Enterovirus Not Detected (Not Detect); Influenza A Subtype 2009 H1 Not Detected (Not Detect); Influenza B Not Detected (Not Detect); Mycoplasma pneumoniae Not Detected (Not Detect); Parainfluenza Virus 1 Not Detected (Not Detect); Parainfluenza Virus 2 Not Detected (Not Detect); Parainfluenza Virus 3 Not Detected (Not Detect); Parainfluenza Virus 4 Not Detected (Not Detect); Respiratory Syncytial Virus Not Detected (Not Detect); SARS-CoV-2 Not Detected (Not Detect)
[2020-11-11 05:47] LABS: ABG Base Excess 10 mEq/L (-2 to 3); ABG HCO3 45 mEq/L (21-27); ABG Oxygen Saturation 99 % (95-98); ABG PCO2 120 mmHg (35-45); ABG PH 7.18 pH Units (7.32-7.45); ABG PO2 200 mmHg (85-104); ABG TCO2 48 mEq/L (20-26)
[2020-11-11] MEDS: Ipratropium/Albuterol Neb 3 ML IH SCH ×5 (07:38→22:58)
[2020-11-11] MEDS: methylPREDNISolone 125 MG/2 ML VIAL IVP SCH ×3 (07:47→23:22)
[2020-11-11 07:49] LABS: ABG Base Excess 15 mEq/L (-2 to 3); ABG HCO3 50 mEq/L (21-27); ABG Oxygen Saturation 97 % (95-98); ABG PCO2 125 mmHg (35-45); ABG PH 7.22 pH Units (7.32-7.45); ABG PO2 115 mmHg (85-104); ABG TCO2 > 50 mEq/L (20-26); Blood Gas Modality avaps; Blood Gas VT 550 cc
[2020-11-11] MEDS ORDERED: *HR* LORazepam 2 MG/ML VIAL IVP ONE (07:49)
[2020-11-11] MEDS ORDERED: acetaZOLAMIDE 250 MG in Water for inj. (sterile) 2.5 ML IVP ONE (09:45)
[2020-11-11 11:41] LABS: ABG Base Excess 12 mEq/L (-2 to 3); ABG HCO3 46 mEq/L (21-27); ABG Oxygen Saturation 92 % (95-98); ABG PCO2 102 mmHg (35-45); ABG PH 7.26 pH Units (7.32-7.45); ABG PO2 81 mmHg (85-104); ABG TCO2 49 mEq/L (20-26); Blood Gas VT 550 cc
[2020-11-11] MEDS ORDERED: Dexmedetomidine HCl 400 MCG/100 ML MLS IVC ONE (12:47)
[2020-11-11] MEDS ORDERED: Dexmedetomidine HCl 400 MCG/100 ML MLS IVC SCH (13:00)
[2020-11-11 13:23] LABS: Bacteria,Urine Few per hpf (None-Few); Bilirubin,Urine Negative (Negative); Blood,Urine Negative (Negative); Clarity,Urine Clear (Clear); Color,Urine Yellow (Yellow); Glucose,Urine (UA) Normal (Normal); Ketones,Urine Negative (Negative); Leukocyte Esterase,Urine Negative (Negative); Mucus,Urine Few per lpf (None-Few); Nitrite,Urine Negative (Negative); Protein,Urine 30 mg/dL (Neg-Trace); Specific Gravity,Urine 1.018 (1.010-1.025); Urobilinogen,Urine Normal (Normal); WBC,Urine 0-3 per hpf (0-3)
[2020-11-11] MEDS: cefTRIAXone 1,000 MG in 0.9 % Sodium Chloride Mini Bag 100 ML IVPB SCH (16:36)
[2020-11-11] MEDS ORDERED: GuaiFENesin Liq 200 MG/10 ML UDC PO PRN (17:45)
[2020-11-11] MEDS ORDERED: Azithromycin 500 MG in 0.9 % Sodium Chloride 250 ML IVPB SCH (18:00)
[2020-11-11] MEDS: Budesonide/Formoterol 160/4.5 1 PUFF INH IH SCH (19:58)
[2020-11-11 22:06] LABS: Acinetobacter baumannii by PCR Not Detected (Not Detect); Candida albicans by PCR Not Detected (Not Detect); Candida glabrata by PCR Not Detected (Not Detect); Candida krusei by PCR Not Detected (Not Detect); Candida parapsilosis by PCR Not Detected (Not Detect); Candida tropicalis by PCR Not Detected (Not Detect); Enterobacter cloacae Cmplx PCR Not Detected (Not Detect); Enterobacteriaceae by PCR Not Detected (Not Detect); Enterococcus by PCR Not Detected (Not Detect); Escherichia coli by PCR Not Detected (Not Detect); Klebsiella oxytoca by PCR Not Detected (Not Detect); Klebsiella pneumoniae by PCR Not Detected (Not Detect); Proteus by PCR Not Detected (Not Detect); Pseudomonas aeruginosa by PCR Not Detected (Not Detect); Serratia marcescens by PCR Not Detected (Not Detect); Staphylococcus aureus by PCR Not Detected (Not Detect); Staphylococcus by PCR DETECTED (Not Detect); Streptococcus agalactiae(B)PCR Not Detected (Not Detect); Streptococcus by PCR Not Detected (Not Detect); Streptococcus pneumoniae PCR Not Detected (Not Detect); Streptococcus pyogenes (A) PCR Not Detected (Not Detect); mecA Methicillin-Resist Gene Not Detected (Not Detect)
[2020-11-12 01:21] LABS: Hematocrit 43.4 % (37.5-50.1); Hemoglobin 13.8 g/dL (12.9-16.9); Immature Granulocytes % 0.6 % (0-4); Lymphocytes # 0.2 K/mcL (0.6-4.6); Lymphocytes % 4.5 %; Mean Corpuscular HGB Conc 31.8 g/dL (31.6-35.5); Mean Corpuscular Hemoglobin 32.2 pg (28.0-33.3); Mean Corpuscular Volume 101.4 fL (83.0-100.0); Monocytes # 0.2 K/mcL (0.0-1.3); Monocytes % 3.3 %; Neutrophils # 4.5 K/mcL (1.6-8.9); Platelet Count 201 K/mcL (140-400); Red Blood Count 4.28 M/mcL (4.19-5.50); Red Cell Distribution Width 13.5 % (11.5-14.5); Segmented Neutrophils % 91.6 %; White Blood Count 4.9 K/mcL (4.3-11.1)
[2020-11-12 01:41] LABS: BUN/Creatinine Ratio 26 (6-26); Blood Urea Nitrogen 18 mg/dL (8-23); Calcium 8.9 mg/dL (8.6-10.3); Carbon Dioxide 37 mEq/L (23-29); Chloride 96 mEq/L (98-107); Glucose 131 mg/dL (70-105); Osmolality,Calculated 288 (280-300); Potassium 4.4 mEq/L (3.5-5.1); Sodium 137 mEq/L (136-145); eGFR For African Americans > 60 (> 60); eGFR For Non-African Americans > 60 (> 60)
[2020-11-12] MEDS: Ipratropium/Albuterol Neb 3 ML IH SCH ×5 (04:02→19:54)
[2020-11-12] MEDS: *HR* Enoxaparin 40 MG/0.4 ML SYRINGE SQ SCH (04:41)
[2020-11-12] MEDS: Cholecalciferol (D-3) 1,000 UNIT (25MCG) TABLET PO SCH (07:25)
[2020-11-12] MEDS: Ascorbic Acid 500 MG TABLET PO SCH (07:25)
[2020-11-12] MEDS: methylPREDNISolone 125 MG/2 ML VIAL IVP SCH ×2 (07:26→17:19)
[2020-11-12] MEDS: Metoprolol XL (24 HR) Succ 50 MG TAB.ER.24H PO SCH (07:26)
[2020-11-12] MEDS: Budesonide/Formoterol 160/4.5 1 PUFF INH IH SCH ×2 (08:04→19:52)
[2020-11-12] MEDS: cefTRIAXone 1,000 MG in 0.9 % Sodium Chloride Mini Bag 100 ML IVPB SCH (17:19)
[2020-11-13] MEDS: Ipratropium/Albuterol Neb 3 ML IH SCH ×7 (00:27→23:28)
[2020-11-13] MEDS: *HR* LORazepam 2 MG/ML VIAL IVP PRN ×2 (01:47→11:30)
[2020-11-13 02:07] LABS: BUN/Creatinine Ratio 36 (6-26); Blood Urea Nitrogen 26 mg/dL (8-23); Calcium 8.8 mg/dL (8.6-10.3); Carbon Dioxide 32 mEq/L (23-29); Chloride 100 mEq/L (98-107); Glucose 148 mg/dL (70-105); Osmolality,Calculated 292 (280-300); Potassium 3.8 mEq/L (3.5-5.1); Sodium 137 mEq/L (136-145); eGFR For African Americans > 60 (> 60); eGFR For Non-African Americans > 60 (> 60)
[2020-11-13] MEDS: methylPREDNISolone 125 MG/2 ML VIAL IVP SCH (06:01)
[2020-11-13] MEDS: Budesonide/Formoterol 160/4.5 1 PUFF INH IH SCH ×2 (07:26→19:42)
[2020-11-13] MEDS: Ascorbic Acid 500 MG TABLET PO SCH (07:42)
[2020-11-13] MEDS: Cholecalciferol (D-3) 1,000 UNIT (25MCG) TABLET PO SCH (07:43)
[2020-11-13] MEDS: Metoprolol XL (24 HR) Succ 50 MG TAB.ER.24H PO SCH (07:43)
[2020-11-13] MEDS ORDERED: amLODIPine 5 MG TABLET PO SCH (09:00)
[2020-11-13] MEDS ORDERED: amLODIPine 5 MG TABLET PO ONE (11:29)
[2020-11-13 11:42] LABS: ABG Base Excess 6 mEq/L (-2 to 3); ABG HCO3 32 mEq/L (21-27); ABG Oxygen Saturation 96 % (95-98); ABG PCO2 51 mmHg (35-45); ABG PO2 84 mmHg (85-104); ABG TCO2 33 mEq/L (20-26)
[2020-11-13] MEDS: Haloperidol Lactate 5 MG/ML VIAL IVP PRN ×2 (14:57→19:55)
[2020-11-13] MEDS ORDERED: Azithromycin 250 MG TABLET PO SCH (16:00)
[2020-11-13] MEDS: cefTRIAXone 1,000 MG in 0.9 % Sodium Chloride Mini Bag 100 ML IVPB SCH (17:56)
[2020-11-13] MEDS: traZODone 50 MG TABLET PO SCH (19:56)
[2020-11-13] MEDS: Gabapentin 300 MG CAPSULE PO SCH (19:56)
[2020-11-14] MEDS: Ipratropium/Albuterol Neb 3 ML IH SCH ×6 (03:51→23:58)
[2020-11-14 05:36] LABS: Basophils % 0.3 %; Eosinophils % 0.1 %; Hematocrit 43.1 % (37.5-50.1); Immature Granulocytes % 0.4 % (0-4); Lymphocytes # 0.9 K/mcL (0.6-4.6); Lymphocytes % 13.3 %; Mean Corpuscular HGB Conc 32.5 g/dL (31.6-35.5); Mean Corpuscular Hemoglobin 32.6 pg (28.0-33.3); Mean Corpuscular Volume 100.2 fL (83.0-100.0); Mean Platelet Volume 8.8 fL (9.4-12.4); Monocytes % 14.6 %; Neutrophils # 4.8 K/mcL (1.6-8.9); Platelet Count 190 K/mcL (140-400); Red Cell Distribution Width 14.1 % (11.5-14.5); Segmented Neutrophils % 71.3 %; White Blood Count 6.8 K/mcL (4.3-11.1)
[2020-11-14 05:46] LABS: BUN/Creatinine Ratio 24 (6-26); Blood Urea Nitrogen 23 mg/dL (8-23); Calcium 8.9 mg/dL (8.6-10.3); Carbon Dioxide 35 mEq/L (23-29); Chloride 101 mEq/L (98-107); Glucose 91 mg/dL (70-105); Magnesium 2.2 mg/dL (1.6-2.6); Osmolality,Calculated 293 (280-300); Phosphorous 2.5 mg/dL (2.7-4.5); Potassium 3.8 mEq/L (3.5-5.1); Sodium 140 mEq/L (136-145); eGFR For African Americans > 60 (> 60); eGFR For Non-African Americans > 60 (> 60)
[2020-11-14] MEDS: Budesonide/Formoterol 160/4.5 1 PUFF INH IH SCH ×2 (07:21→20:05)
[2020-11-14] MEDS: predniSONE 20 MG TABLET PO SCH (08:30)
[2020-11-14] MEDS: Gabapentin 300 MG CAPSULE PO SCH ×3 (08:30→19:36)
[2020-11-14] MEDS: Metoprolol XL (24 HR) Succ 50 MG TAB.ER.24H PO SCH (08:31)
[2020-11-14] MEDS: Ascorbic Acid 500 MG TABLET PO SCH (08:31)
[2020-11-14] MEDS: amLODIPine 5 MG TABLET PO SCH (08:31)
[2020-11-14] MEDS: Cholecalciferol (D-3) 1,000 UNIT (25MCG) TABLET PO SCH (08:31)
[2020-11-14] MEDS: cefTRIAXone 1,000 MG in 0.9 % Sodium Chloride Mini Bag 100 ML IVPB SCH (16:11)
[2020-11-14] MEDS: traZODone 50 MG TABLET PO SCH (19:37)
[2020-11-15] MEDS: Ipratropium/Albuterol Neb 3 ML IH SCH ×6 (04:28→23:57)
[2020-11-15] MEDS: *HR* Enoxaparin 40 MG/0.4 ML SYRINGE SQ SCH (06:25)
[2020-11-15] MEDS: Budesonide/Formoterol 160/4.5 1 PUFF INH IH SCH ×2 (07:51→20:20)
[2020-11-15] MEDS: Cholecalciferol (D-3) 1,000 UNIT (25MCG) TABLET PO SCH (08:43)
[2020-11-15] MEDS: Metoprolol XL (24 HR) Succ 50 MG TAB.ER.24H PO SCH (08:43)
[2020-11-15] MEDS: Gabapentin 300 MG CAPSULE PO SCH ×3 (08:43→20:13)
[2020-11-15] MEDS: Ascorbic Acid 500 MG TABLET PO SCH (08:43)
[2020-11-15] MEDS: amLODIPine 5 MG TABLET PO SCH (08:43)
[2020-11-15] MEDS: predniSONE 20 MG TABLET PO SCH (08:43)
[2020-11-15] MEDS: cefTRIAXone 1,000 MG in 0.9 % Sodium Chloride Mini Bag 100 ML IVPB SCH (17:26)
[2020-11-15] MEDS: traZODone 50 MG TABLET PO SCH (20:13)
[2020-11-16] MEDS: Ipratropium/Albuterol Neb 3 ML IH SCH ×6 (03:39→23:22)
[2020-11-16] MEDS: *HR* Enoxaparin 40 MG/0.4 ML SYRINGE SQ SCH (05:03)
[2020-11-16 06:02] LABS: Basophils % 0.1 %; Eosinophils % 0.3 %; Hematocrit 40.4 % (37.5-50.1); Hemoglobin 12.5 g/dL (12.9-16.9); Immature Granulocytes % 0.5 % (0-4); Lymphocytes # 0.6 K/mcL (0.6-4.6); Lymphocytes % 7.3 %; Mean Corpuscular HGB Conc 30.9 g/dL (31.6-35.5); Mean Corpuscular Hemoglobin 32.2 pg (28.0-33.3); Mean Corpuscular Volume 104.1 fL (83.0-100.0); Mean Platelet Volume 8.8 fL (9.4-12.4); Monocytes # 0.4 K/mcL (0.0-1.3); Monocytes % 5.6 %; Neutrophils # 6.6 K/mcL (1.6-8.9); Platelet Count 174 K/mcL (140-400); Red Blood Count 3.88 M/mcL (4.19-5.50); Red Cell Distribution Width 13.8 % (11.5-14.5); Segmented Neutrophils % 86.2 %; White Blood Count 7.7 K/mcL (4.3-11.1)
[2020-11-16 06:28] LABS: BUN/Creatinine Ratio 38 (6-26); Blood Urea Nitrogen 25 mg/dL (8-23); Calcium 8.4 mg/dL (8.6-10.3); Carbon Dioxide 40 mEq/L (23-29); Chloride 101 mEq/L (98-107); Glucose 119 mg/dL (70-105); Magnesium 1.9 mg/dL (1.6-2.6); Osmolality,Calculated 298 (280-300); Phosphorous 2.3 mg/dL (2.7-4.5); Potassium 3.7 mEq/L (3.5-5.1); Sodium 141 mEq/L (136-145); eGFR For African Americans > 60 (> 60); eGFR For Non-African Americans > 60 (> 60)
[2020-11-16] MEDS: Budesonide/Formoterol 160/4.5 1 PUFF INH IH SCH ×2 (07:56→19:45)
[2020-11-16] MEDS: predniSONE 20 MG TABLET PO SCH (08:03)
[2020-11-16] MEDS: Gabapentin 300 MG CAPSULE PO SCH ×3 (08:03→20:03)
[2020-11-16] MEDS: Metoprolol XL (24 HR) Succ 50 MG TAB.ER.24H PO SCH (08:04)
[2020-11-16] MEDS: Cholecalciferol (D-3) 1,000 UNIT (25MCG) TABLET PO SCH (08:04)
[2020-11-16] MEDS: Ascorbic Acid 500 MG TABLET PO SCH (08:04)
[2020-11-16] MEDS: amLODIPine 5 MG TABLET PO SCH (08:04)
[2020-11-16] MEDS: levoFLOXacin 750 MG TABLET PO SCH (10:01)
[2020-11-16] MEDS: traZODone 50 MG TABLET PO SCH (20:03)
[2020-11-17 02:34] LABS: ABG Base Excess -10 mEq/L (-2 to 3); ABG HCO3 16 mEq/L (21-27); ABG Oxygen Saturation 99 % (95-98); ABG PCO2 31 mmHg (35-45); ABG PO2 158 mmHg (85-104); ABG TCO2 16 mEq/L (20-26)
[2020-11-17] MEDS: Ipratropium/Albuterol Neb 3 ML IH SCH ×4 (04:07→15:36)
[2020-11-17] MEDS: *HR* Enoxaparin 40 MG/0.4 ML SYRINGE SQ SCH (05:00)
[2020-11-17] MEDS: Budesonide/Formoterol 160/4.5 1 PUFF INH IH SCH (07:44)
[2020-11-17] MEDS: levoFLOXacin 750 MG TABLET PO SCH (08:12)
[2020-11-17] MEDS: amLODIPine 5 MG TABLET PO SCH (08:12)
[2020-11-17] MEDS: Ascorbic Acid 500 MG TABLET PO SCH (08:13)
[2020-11-17] MEDS: predniSONE 20 MG TABLET PO SCH (08:13)
[2020-11-17] MEDS: Cholecalciferol (D-3) 1,000 UNIT (25MCG) TABLET PO SCH (08:13)
[2020-11-17] MEDS: Metoprolol XL (24 HR) Succ 50 MG TAB.ER.24H PO SCH (08:13)
[2020-11-17] MEDS: Gabapentin 300 MG CAPSULE PO SCH ×2 (08:14→14:53)
[2020-11-17 15:00] VITALS: BP 139/80
== END 2020-11-17 17:58 | disposition home health service (06) | DRG 193 ==
LOC: 2NNU 00:12 → EMEROOARM 00:12 → SUATTDRO 03:42 → 2NNU 04:56 → SUATTDRO 12:12 → 2NENU 11-13 05:24
PROVIDERS: ADMIT Internal Medicine; ATTEND Internal Medicine

== ENCOUNTER 2020-11-29 16:54 | Inpatient (IN) ==
[2020-11-29] MEDS ORDERED: Ipratropium/Albuterol Neb 3 ML ONE (16:59)
[2020-11-29] MEDS ORDERED: Ipratropium/Albuterol Neb 3 ML IH ONE (17:01)
[2020-11-29] MEDS ORDERED: methylPREDNISolone 125 MG/2 ML VIAL IVP ONE (17:01)
[2020-11-29] MEDS ORDERED: methylPREDNISolone 125 MG/2 ML VIAL ONE (17:01)
[2020-11-29] MEDS ORDERED: cefTRIAXone 1,000 MG in Water for inj. (sterile) 10 ML IVP ONE (17:10)
[2020-11-29] MEDS ORDERED: Azithromycin 500 MG in 0.9 % Sodium Chloride 250 ML IVPB ONE (17:10)
[2020-11-29 17:16] LABS: ABG Base Excess 18 mEq/L (-2 to 3); ABG HCO3 53 mEq/L (21-27); ABG Oxygen Saturation 99 % (95-98); ABG PCO2 127 mmHg (35-45); ABG PH 7.23 pH Units (7.32-7.45); ABG PO2 180 mmHg (85-104); ABG TCO2 > 50 mEq/L (20-26)
[2020-11-29 17:22] LABS: Basophils # 0.1 K/mcL (0.0-0.2); Basophils % 0.8 %; Eosinophils % 0.2 %; Hematocrit 46.6 % (37.5-50.1); Hemoglobin 14.2 g/dL (12.9-16.9); Immature Granulocytes % 2.7 % (0-4); Lymphocytes # 0.4 K/mcL (0.6-4.6); Lymphocytes % 3.1 %; Mean Corpuscular HGB Conc 30.5 g/dL (31.6-35.5); Mean Corpuscular Hemoglobin 32.4 pg (28.0-33.3); Mean Corpuscular Volume 106.4 fL (83.0-100.0); Mean Platelet Volume 8.6 fL (9.4-12.4); Monocytes # 0.6 K/mcL (0.0-1.3); Monocytes % 5.1 %; Neutrophils # 10.4 K/mcL (1.6-8.9); Platelet Count 178 K/mcL (140-400); Red Blood Count 4.38 M/mcL (4.19-5.50); Red Cell Distribution Width 14.1 % (11.5-14.5); Segmented Neutrophils % 88.1 %; White Blood Count 11.8 K/mcL (4.3-11.1)
[2020-11-29 17:52] LABS: Alanine Aminotransferase 14 Units/L (7-52); Albumin 4.1 g/dL (3.5-5.7); Albumin/Globulin Ratio 1.6 (1.1-2.2); Alkaline Phosphatase 72 Units/L (34-104); Aspartate Amino Transferase 15 Units/L (13-39); BUN/Creatinine Ratio 18 (6-26); Bilirubin,Direct 0.1 mg/dL (0.0-0.2); Bilirubin,Indirect 0.5 mg/dL (0.0-1.0); Bilirubin,Total 0.6 mg/dL (0.3-1.0); Blood Urea Nitrogen 12 mg/dL (8-23); Calcium 8.6 mg/dL (8.6-10.3); Carbon Dioxide 43 mEq/L (23-29); Chloride 96 mEq/L (98-107); Globulin 2.6 g/dL (2.4-3.5); Glucose 165 mg/dL (70-105); Lipase 22 Units/L (11-82); Magnesium 2.1 mg/dL (1.6-2.6); Osmolality,Calculated 295 (280-300); Phosphorous 2.7 mg/dL (2.7-4.5); Potassium 3.8 mEq/L (3.5-5.1); Sodium 141 mEq/L (136-145); Total Protein 6.7 g/dL (6.4-8.9); Troponin I < 0.03 ng/mL (< 0.04); eGFR For African Americans > 60 (> 60); eGFR For Non-African Americans > 60 (> 60)
[2020-11-29 18:03] LABS: Prothrombin Time 11.1 Seconds (9.4-12.1)
[2020-11-29 18:05] LABS: Activated Partial Thrombo Time 30.4 Seconds (26.0-36.0)
[2020-11-29 18:39] LABS: ABG Base Excess 11 mEq/L (-2 to 3); ABG HCO3 44 mEq/L (21-27); ABG Oxygen Saturation 94 % (95-98); ABG PCO2 105 mmHg (35-45); ABG PH 7.23 pH Units (7.32-7.45); ABG PO2 92 mmHg (85-104); ABG TCO2 47 mEq/L (20-26); Blood Gas Modality BiLevel; Blood Gas VT 500 cc
[2020-11-29] MEDS ORDERED: Acetaminophen 325 MG TABLET PO PRN (20:26)
[2020-11-29] MEDS ORDERED: Ondansetron 4 MG/2 ML VIAL IVP PRN (20:26)
[2020-11-29] MEDS ORDERED: Naloxone 0.4 MG/ML INJ IVP PRN (20:26)
[2020-11-29] MEDS ORDERED: *HR* LORazepam 2 MG/ML VIAL IVP ONE (21:45)
[2020-11-29] MEDS ORDERED: Perflutren Lipid Microsphere 1.3 ML in 0.9 % Sodium Chloride 8.7 ML IVP PRN (21:51)
[2020-11-29] MEDS ORDERED: Furosemide 20 MG/2 ML VIAL IVP ONE (21:53)
[2020-11-29] MEDS ORDERED: *HR* LORazepam 2 MG/ML VIAL ONE (21:58)
[2020-11-29] MEDS: Ipratropium/Albuterol Neb 3 ML IH SCH (22:47)
[2020-11-29] MEDS: Budesonide/Formoterol 160/4.5 1 PUFF INH IH SCH (22:47)
[2020-11-30] MEDS: MethylPREDNISolone 40 MG/ML VIAL IVP SCH ×5 (00:11→23:30)
[2020-11-30 00:28] LABS: ABG Base Excess 15 mEq/L (-2 to 3); ABG HCO3 47 mEq/L (21-27); ABG Oxygen Saturation 96 % (95-98); ABG PCO2 96 mmHg (35-45); ABG PO2 101 mmHg (85-104); ABG TCO2 50 mEq/L (20-26); Blood Gas Modality avaps; Blood Gas Pressure Support 35 cm H2O; Blood Gas VT 500 cc
[2020-11-30 00:35] LABS: Adenovirus Not Detected (Not Detect); Bordetella Pertussis Not Detected (Not Detect); Chlamydophila pneumoniae Not Detected (Not Detect); Coronavirus 229E Not Detected (Not Detect); Coronavirus HKU1 Not Detected (Not Detect); Coronavirus NL63 Not Detected (Not Detect); Coronavirus OC43 Not Detected (Not Detect); Human Metapneumovirus Not Detected (Not Detect); Human Rhinovirus/Enterovirus Not Detected (Not Detect); Influenza A Subtype 2009 H1 Not Detected (Not Detect); Influenza B Not Detected (Not Detect); Mycoplasma pneumoniae Not Detected (Not Detect); Parainfluenza Virus 1 Not Detected (Not Detect); Parainfluenza Virus 2 Not Detected (Not Detect); Parainfluenza Virus 3 Not Detected (Not Detect); Parainfluenza Virus 4 Not Detected (Not Detect); Respiratory Syncytial Virus Not Detected (Not Detect); SARS-CoV-2 Not Detected (Not Detect)
[2020-11-30] MEDS ORDERED: *HR* LORazepam 2 MG/ML VIAL IVP ONE ×3 (03:08→16:00)
[2020-11-30] MEDS: Ipratropium/Albuterol Neb 3 ML IH SCH ×4 (03:49→23:07)
[2020-11-30] MEDS ORDERED: Haloperidol Lactate 5 MG/ML VIAL IVP ONE ×2 (03:55→16:01)
[2020-11-30 05:38] LABS: Basophils % 0.5 %; Hematocrit 43.7 % (37.5-50.1); Hemoglobin 13.5 g/dL (12.9-16.9); Immature Granulocytes % 2.7 % (0-4); Lymphocytes # 0.2 K/mcL (0.6-4.6); Lymphocytes % 2.9 %; Mean Corpuscular HGB Conc 30.9 g/dL (31.6-35.5); Mean Corpuscular Hemoglobin 32.1 pg (28.0-33.3); Mean Corpuscular Volume 103.8 fL (83.0-100.0); Mean Platelet Volume 8.7 fL (9.4-12.4); Monocytes # 0.1 K/mcL (0.0-1.3); Monocytes % 1.3 %; Neutrophils # 5.5 K/mcL (1.6-8.9); Platelet Count 188 K/mcL (140-400); Red Blood Count 4.21 M/mcL (4.19-5.50); Red Cell Distribution Width 13.8 % (11.5-14.5); Segmented Neutrophils % 92.6 %; White Blood Count 5.9 K/mcL (4.3-11.1)
[2020-11-30 06:01] LABS: BUN/Creatinine Ratio 17 (6-26); Blood Urea Nitrogen 11 mg/dL (8-23); Calcium 8.7 mg/dL (8.6-10.3); Carbon Dioxide 41 mEq/L (23-29); Chloride 94 mEq/L (98-107); Glucose 185 mg/dL (70-105); Osmolality,Calculated 292 (280-300); Potassium 3.8 mEq/L (3.5-5.1); Sodium 139 mEq/L (136-145); eGFR For African Americans > 60 (> 60); eGFR For Non-African Americans > 60 (> 60)
[2020-11-30 06:26] LABS: Platelet Estimate Normal (Normal)
[2020-11-30] MEDS: *HR* Enoxaparin 30 MG/0.3 ML SYRINGE SQ SCH (06:30)
[2020-11-30 09:24] LABS: Folate > 22.3 ng/mL (3.0-16.0); Vitamin B12 324 pg/mL (250-1100)
[2020-11-30] MEDS: Budesonide/Formoterol 160/4.5 1 PUFF INH IH SCH ×2 (09:57→23:07)
[2020-11-30] MEDS ORDERED: *HR* LORazepam 2 MG/ML VIAL IM STA (12:59)
[2020-11-30] MEDS ORDERED: Isovue-370 500 ML BOTTLE IVP ONE (14:46)
[2020-11-30] MEDS ORDERED: *HR* LORazepam 2 MG/ML VIAL ONE (15:48)
[2020-11-30] MEDS: Azithromycin 500 MG in 0.9 % Sodium Chloride 250 ML IVPB SCH (16:13)
[2020-11-30] MEDS: Metoprolol XL (24 HR) Succ 50 MG TAB.ER.24H PO SCH (16:14)
[2020-11-30] MEDS: Gabapentin 300 MG CAPSULE PO SCH ×2 (16:14→19:53)
[2020-11-30] MEDS: Dexmedetomidine HCl 400 MCG/100 ML MLS IVC SCH (16:15)
[2020-11-30] MEDS: amLODIPine 5 MG TABLET PO SCH (16:15)
[2020-11-30] MEDS ORDERED: cefTRIAXone 1,000 MG in Water for inj. (sterile) 10 ML IVP SCH (17:00)
[2020-11-30 17:57] LABS: VBG HCO3 40 mEq/L (21-27); VBG PCO2 72 mmHg (41-51); VBG PH 7.35 pH Units (7.32-7.42); VBG PO2 66 mmHg (25-50)
[2020-11-30] MEDS: traZODone 50 MG TABLET PO SCH (19:53)
[2020-12-01] MEDS: Ipratropium/Albuterol Neb 3 ML IH SCH ×4 (04:07→21:49)
[2020-12-01] MEDS: *HR* Enoxaparin 30 MG/0.3 ML SYRINGE SQ SCH (04:56)
[2020-12-01] MEDS: MethylPREDNISolone 40 MG/ML VIAL IVP SCH ×3 (04:56→18:55)
[2020-12-01 06:32] LABS: BUN/Creatinine Ratio 24 (6-26); Blood Urea Nitrogen 16 mg/dL (8-23); Calcium 9.2 mg/dL (8.6-10.3); Carbon Dioxide 38 mEq/L (23-29); Chloride 95 mEq/L (98-107); Glucose 158 mg/dL (70-105); Osmolality,Calculated 290 (280-300); Potassium 4.3 mEq/L (3.5-5.1); Sodium 138 mEq/L (136-145); eGFR For African Americans > 60 (> 60); eGFR For Non-African Americans > 60 (> 60)
[2020-12-01] MEDS: Metoprolol XL (24 HR) Succ 50 MG TAB.ER.24H PO SCH (08:07)
[2020-12-01] MEDS: Gabapentin 300 MG CAPSULE PO SCH ×3 (08:07→19:59)
[2020-12-01] MEDS: Cholecalciferol (D-3) 1,000 UNIT (25MCG) TABLET PO SCH (08:07)
[2020-12-01] MEDS: amLODIPine 5 MG TABLET PO SCH (08:07)
[2020-12-01] MEDS: Patient Taking Own Medication 1 EACH PO SCH (10:02)
[2020-12-01] MEDS: Budesonide/Formoterol 160/4.5 1 PUFF INH IH SCH ×2 (11:10→21:49)
[2020-12-01] MEDS: Dexmedetomidine HCl 400 MCG/100 ML MLS IVC SCH (16:05)
[2020-12-01] MEDS: Azithromycin 500 MG in 0.9 % Sodium Chloride 250 ML IVPB SCH (16:14)
[2020-12-01] MEDS: traZODone 50 MG TABLET PO SCH (19:58)
[2020-12-02] MEDS: MethylPREDNISolone 40 MG/ML VIAL IVP SCH ×2 (00:18→05:54)
[2020-12-02] MEDS: Ipratropium/Albuterol Neb 3 ML IH SCH ×4 (03:54→22:25)
[2020-12-02 05:13] LABS: Basophils % 0.1 %; Hematocrit 42.8 % (37.5-50.1); Hemoglobin 13.4 g/dL (12.9-16.9); Immature Granulocytes % 0.7 % (0-4); Lymphocytes # 0.1 K/mcL (0.6-4.6); Lymphocytes % 1.6 %; Mean Corpuscular HGB Conc 31.3 g/dL (31.6-35.5); Mean Corpuscular Hemoglobin 31.4 pg (28.0-33.3); Mean Corpuscular Volume 100.2 fL (83.0-100.0); Monocytes # 0.3 K/mcL (0.0-1.3); Monocytes % 3.2 %; Neutrophils # 8.3 K/mcL (1.6-8.9); Platelet Count 211 K/mcL (140-400); Red Blood Count 4.27 M/mcL (4.19-5.50); Segmented Neutrophils % 94.4 %; White Blood Count 8.8 K/mcL (4.3-11.1)
[2020-12-02 05:38] LABS: Platelet Estimate Normal (Normal)
[2020-12-02 05:40] LABS: BUN/Creatinine Ratio 30 (6-26); Blood Urea Nitrogen 25 mg/dL (8-23); Calcium 8.7 mg/dL (8.6-10.3); Carbon Dioxide 37 mEq/L (23-29); Chloride 97 mEq/L (98-107); Glucose 143 mg/dL (70-105); Osmolality,Calculated 291 (280-300); Potassium 4.3 mEq/L (3.5-5.1); Sodium 137 mEq/L (136-145); eGFR For African Americans > 60 (> 60); eGFR For Non-African Americans > 60 (> 60)
[2020-12-02] MEDS: *HR* Enoxaparin 40 MG/0.4 ML SYRINGE SQ SCH (05:54)
[2020-12-02] MEDS: Cholecalciferol (D-3) 1,000 UNIT (25MCG) TABLET PO SCH (07:48)
[2020-12-02] MEDS: Gabapentin 300 MG CAPSULE PO SCH ×3 (07:48→20:19)
[2020-12-02] MEDS: amLODIPine 5 MG TABLET PO SCH (07:48)
[2020-12-02] MEDS: predniSONE 20 MG TABLET PO SCH (07:48)
[2020-12-02] MEDS: Patient Taking Own Medication 1 EACH PO SCH (07:48)
[2020-12-02] MEDS: Budesonide/Formoterol 160/4.5 1 PUFF INH IH SCH ×2 (09:34→22:25)
[2020-12-02] MEDS: Metoprolol XL (24 HR) Succ 50 MG TAB.ER.24H PO SCH (11:22)
[2020-12-02] MEDS: Azithromycin 500 MG in 0.9 % Sodium Chloride 250 ML IVPB SCH (16:52)
[2020-12-02] MEDS: traZODone 50 MG TABLET PO SCH (20:19)
[2020-12-03] MEDS ORDERED: *HR* LORazepam 2 MG/ML VIAL IVP ONE (03:28)
[2020-12-03] MEDS: Ipratropium/Albuterol Neb 3 ML IH SCH ×4 (04:17→21:49)
[2020-12-03] MEDS: *HR* Enoxaparin 40 MG/0.4 ML SYRINGE SQ SCH (05:37)
[2020-12-03] MEDS: predniSONE 20 MG TABLET PO SCH (07:59)
[2020-12-03] MEDS: Cholecalciferol (D-3) 1,000 UNIT (25MCG) TABLET PO SCH (07:59)
[2020-12-03] MEDS: Metoprolol XL (24 HR) Succ 50 MG TAB.ER.24H PO SCH (07:59)
[2020-12-03] MEDS: amLODIPine 5 MG TABLET PO SCH (07:59)
[2020-12-03] MEDS: Gabapentin 300 MG CAPSULE PO SCH ×3 (07:59→19:54)
[2020-12-03] MEDS: Budesonide/Formoterol 160/4.5 1 PUFF INH IH SCH ×2 (11:03→21:49)
[2020-12-03] MEDS ORDERED: Azithromycin 250 MG TABLET PO ONE (16:00)
[2020-12-03 16:25] LABS: VBG HCO3 38 mEq/L (21-27); VBG PCO2 71 mmHg (41-51); VBG PH 7.34 pH Units (7.32-7.42); VBG PO2 90 mmHg (25-50)
[2020-12-03] MEDS: traZODone 50 MG TABLET PO SCH (19:54)
[2020-12-04] MEDS: Ipratropium/Albuterol Neb 3 ML IH SCH ×3 (03:58→15:53)
[2020-12-04 04:45] LABS: Basophils % 0.1 %; Eosinophils % 0.1 %; Hemoglobin 13.1 g/dL (12.9-16.9); Immature Granulocytes % 0.3 % (0-4); Lymphocytes # 0.6 K/mcL (0.6-4.6); Lymphocytes % 7.1 %; Mean Corpuscular HGB Conc 31.2 g/dL (31.6-35.5); Mean Corpuscular Volume 102.7 fL (83.0-100.0); Mean Platelet Volume 8.9 fL (9.4-12.4); Monocytes # 0.8 K/mcL (0.0-1.3); Monocytes % 8.4 %; Neutrophils # 7.5 K/mcL (1.6-8.9); Platelet Count 171 K/mcL (140-400); Red Blood Count 4.09 M/mcL (4.19-5.50); Red Cell Distribution Width 13.9 % (11.5-14.5); White Blood Count 8.9 K/mcL (4.3-11.1)
[2020-12-04 04:50] LABS: VBG HCO3 37 mEq/L (21-27); VBG PCO2 72 mmHg (41-51); VBG PH 7.32 pH Units (7.32-7.42); VBG PO2 98 mmHg (25-50)
[2020-12-04 04:53] LABS: BUN/Creatinine Ratio 39 (6-26); Blood Urea Nitrogen 31 mg/dL (8-23); Calcium 8.5 mg/dL (8.6-10.3); Carbon Dioxide 39 mEq/L (23-29); Chloride 97 mEq/L (98-107); Glucose 97 mg/dL (70-105); Magnesium 2.2 mg/dL (1.6-2.6); Osmolality,Calculated 302 (280-300); Potassium 3.7 mEq/L (3.5-5.1); Sodium 143 mEq/L (136-145); eGFR For African Americans > 60 (> 60); eGFR For Non-African Americans > 60 (> 60)
[2020-12-04] MEDS: *HR* Enoxaparin 40 MG/0.4 ML SYRINGE SQ SCH (07:00)
[2020-12-04] MEDS: predniSONE 20 MG TABLET PO SCH (08:23)
[2020-12-04] MEDS: amLODIPine 5 MG TABLET PO SCH (08:23)
[2020-12-04] MEDS: Gabapentin 300 MG CAPSULE PO SCH (08:23)
[2020-12-04] MEDS: Cholecalciferol (D-3) 1,000 UNIT (25MCG) TABLET PO SCH (08:23)
[2020-12-04] MEDS: Metoprolol XL (24 HR) Succ 50 MG TAB.ER.24H PO SCH (08:23)
[2020-12-04] MEDS: Budesonide/Formoterol 160/4.5 1 PUFF INH IH SCH (10:29)
[2020-12-04 12:02] VITALS: BP 117/57
== END 2020-12-04 16:34 | disposition home health service (06) | DRG 189 ==
LOC: 2NNU 16:54 → EMEROOARM 16:54 → 2NNU 21:00 → SUATTDRO 11-30 13:54 → 3ANU 12-02 13:06
PROVIDERS: ADMIT Family Medicine; ATTEND Internal Medicine

== ENCOUNTER 2020-12-08 00:27 | Inpatient (IN) ==
[2020-12-08 00:50] LABS: ABG Base Excess 12 mEq/L (-2 to 3); ABG HCO3 43 mEq/L (21-27); ABG Oxygen Saturation 93 % (95-98); ABG PCO2 91 mmHg (35-45); ABG PH 7.28 pH Units (7.32-7.45); ABG PO2 81 mmHg (85-104); ABG TCO2 45 mEq/L (20-26)
[2020-12-08 01:07] LABS: Basophils % 0.3 %; Eosinophils # 0.1 K/mcL (0.0-0.6); Eosinophils % 1.4 %; Hematocrit 41.8 % (37.5-50.1); Immature Granulocytes % 0.5 % (0-4); Lymphocytes # 0.9 K/mcL (0.6-4.6); Lymphocytes % 9.2 %; Mean Corpuscular HGB Conc 31.1 g/dL (31.6-35.5); Mean Corpuscular Hemoglobin 31.9 pg (28.0-33.3); Mean Corpuscular Volume 102.7 fL (83.0-100.0); Mean Platelet Volume 8.8 fL (9.4-12.4); Monocytes # 0.6 K/mcL (0.0-1.3); Monocytes % 6.6 %; Neutrophils # 7.6 K/mcL (1.6-8.9); Platelet Count 159 K/mcL (140-400); Red Blood Count 4.07 M/mcL (4.19-5.50); Red Cell Distribution Width 13.9 % (11.5-14.5); White Blood Count 9.3 K/mcL (4.3-11.1)
[2020-12-08 01:50] LABS: Alanine Aminotransferase 20 Units/L (7-52); Albumin 3.6 g/dL (3.5-5.7); Albumin/Globulin Ratio 1.7 (1.1-2.2); Alkaline Phosphatase 67 Units/L (34-104); Aspartate Amino Transferase 24 Units/L (13-39); BUN/Creatinine Ratio 23 (6-26); Bilirubin,Direct 0.2 mg/dL (0.0-0.2); Bilirubin,Indirect 0.6 mg/dL (0.0-1.0); Bilirubin,Total 0.8 mg/dL (0.3-1.0); Blood Urea Nitrogen 18 mg/dL (8-23); Calcium 8.2 mg/dL (8.6-10.3); Carbon Dioxide 36 mEq/L (23-29); Chloride 96 mEq/L (98-107); Globulin 2.1 g/dL (2.4-3.5); Glucose 116 mg/dL (70-105); Osmolality,Calculated 287 (280-300); Potassium 4.7 mEq/L (3.5-5.1); Sodium 137 mEq/L (136-145); Total Protein 5.7 g/dL (6.4-8.9); Troponin I < 0.03 ng/mL (< 0.04); eGFR For African Americans > 60 (> 60); eGFR For Non-African Americans > 60 (> 60)
[2020-12-08] MEDS ORDERED: Ipratropium/Albuterol Neb 3 ML IH ONE (02:16)
[2020-12-08] MEDS ORDERED: methylPREDNISolone 125 MG/2 ML VIAL IVP ONE ×2 (02:16→03:01)
[2020-12-08] MEDS ORDERED: Azithromycin 250 MG TABLET PO ONE (02:30)
[2020-12-08] MEDS ORDERED: Azithromycin 250 MG TABLET PO SCH (02:30)
[2020-12-08] MEDS ORDERED: cefTRIAXone 1,000 MG in Water for inj. (sterile) 10 ML IVP ONE (03:00)
[2020-12-08 03:28] LABS: ABG Base Excess 11 mEq/L (-2 to 3); ABG HCO3 43 mEq/L (21-27); ABG Oxygen Saturation 95 % (95-98); ABG PCO2 94 mmHg (35-45); ABG PH 7.27 pH Units (7.32-7.45); ABG PO2 95 mmHg (85-104); ABG TCO2 46 mEq/L (20-26); Blood Gas Modality avaps; Blood Gas VT 500 cc
[2020-12-08] MEDS ORDERED: Azithromycin 500 MG in 0.9 % Sodium Chloride 250 ML IVPB SCH (03:30)
[2020-12-08] MEDS ORDERED: Naloxone 0.4 MG/ML INJ IVP PRN (03:43)
[2020-12-08] MEDS ORDERED: Prochlorperazine 10 MG/2 ML VIAL IVP PRN (03:46)
[2020-12-08 04:58] LABS: ABG Base Excess 12 mEq/L (-2 to 3); ABG HCO3 41 mEq/L (21-27); ABG Oxygen Saturation 92 % (95-98); ABG PCO2 74 mmHg (35-45); ABG PH 7.36 pH Units (7.32-7.45); ABG PO2 72 mmHg (85-104); ABG TCO2 44 mEq/L (20-26); Blood Gas Modality avaps; Blood Gas VT 600 cc
[2020-12-08] MEDS: Levalbuterol Neb 1.25 MG/3 ML IH SCH ×6 (05:00→23:49)
[2020-12-08] MEDS: Famotidine 20 MG/2 ML VIAL IVP SCH ×2 (05:38→16:45)
[2020-12-08] MEDS: Acetaminophen IV 1,000 MG/100 ML BAG IVPB SCH ×3 (05:38→16:45)
[2020-12-08] MEDS: *HR* Heparin 5,000 UNIT/ML VIAL SQ SCH ×3 (05:39→21:08)
[2020-12-08] MEDS: Calcium Gluconate 1gm/50mL 1 GM/50 ML BAG IVPB SCH ×2 (05:39→06:55)
[2020-12-08 06:22] LABS: Hematocrit 42.5 % (37.5-50.1); Hemoglobin 13.7 g/dL (12.9-16.9); Mean Corpuscular HGB Conc 32.2 g/dL (31.6-35.5); Mean Corpuscular Hemoglobin 33.1 pg (28.0-33.3); Mean Corpuscular Volume 102.7 fL (83.0-100.0); Mean Platelet Volume 8.6 fL (9.4-12.4); Platelet Count 160 K/mcL (140-400); Red Blood Count 4.14 M/mcL (4.19-5.50); Red Cell Distribution Width 13.9 % (11.5-14.5); White Blood Count 9.2 K/mcL (4.3-11.1)
[2020-12-08 06:40] LABS: ABG Base Excess 11 mEq/L (-2 to 3); ABG HCO3 40 mEq/L (21-27); ABG Oxygen Saturation 94 % (95-98); ABG PCO2 70 mmHg (35-45); ABG PH 7.36 pH Units (7.32-7.45); ABG PO2 78 mmHg (85-104); ABG TCO2 42 mEq/L (20-26); Blood Gas Modality avaps; Blood Gas VT 600 cc
[2020-12-08 06:46] LABS: % Iron Saturation 32 % (20-55); Iron 105 mcg/dL (65-175); Transferrin 238 mg/dL (203-362)
[2020-12-08 06:59] LABS: BUN/Creatinine Ratio 22 (6-26); Blood Urea Nitrogen 16 mg/dL (8-23); Calcium 8.6 mg/dL (8.6-10.3); Carbon Dioxide 42 mEq/L (23-29); Chloride 95 mEq/L (98-107); Chol/HDL Ratio 2.1 (0-4.9); Cholesterol 122 mg/dL (< 200); Glucose 100 mg/dL (70-105); HDL Cholesterol 59 mg/dL (40-59); LDL Cholesterol,Calculated 51 mg/dL (< 100); Osmolality,Calculated 289 (280-300); Potassium 4.3 mEq/L (3.5-5.1); Sodium 139 mEq/L (136-145); Triglycerides 61 mg/dL (< 150); eGFR For African Americans > 60 (> 60); eGFR For Non-African Americans > 60 (> 60)
[2020-12-08 07:01] LABS: Ferritin 134 ng/mL (20-250)
[2020-12-08 09:37] LABS: Folate 15.6 ng/mL (3.0-16.0)
[2020-12-08] MEDS: methylPREDNISolone 125 MG/2 ML VIAL IVP SCH ×2 (11:42→21:09)
[2020-12-08] MEDS ORDERED: GuaiFENesin Liq 200 MG/10 ML UDC PO PRN (15:43)
[2020-12-08] MEDS: Budesonide/Formoterol 160/4.5 1 PUFF INH IH SCH (19:56)
[2020-12-08] MEDS: Gabapentin 300 MG CAPSULE PO SCH (21:08)
[2020-12-08] MEDS: traZODone 50 MG TABLET PO SCH (21:09)
[2020-12-08] MEDS: Lidocaine 5% OINT 35 APPL/35.44 GM TUBE TP SCH (23:34)
[2020-12-09] MEDS: Acetaminophen IV 1,000 MG/100 ML BAG IVPB SCH ×3 (00:44→11:57)
[2020-12-09 02:01] LABS: Hematocrit 37.3 % (37.5-50.1); Hemoglobin 12.3 g/dL (12.9-16.9); Mean Corpuscular Hemoglobin 32.4 pg (28.0-33.3); Mean Corpuscular Volume 98.2 fL (83.0-100.0); Mean Platelet Volume 9.2 fL (9.4-12.4); Platelet Count 173 K/mcL (140-400); Red Cell Distribution Width 13.5 % (11.5-14.5); White Blood Count 5.6 K/mcL (4.3-11.1)
[2020-12-09 02:18] LABS: BUN/Creatinine Ratio 18 (6-26); Blood Urea Nitrogen 12 mg/dL (8-23); Calcium 8.4 mg/dL (8.6-10.3); Carbon Dioxide 36 mEq/L (23-29); Chloride 96 mEq/L (98-107); Glucose 151 mg/dL (70-105); Osmolality,Calculated 289 (280-300); Sodium 138 mEq/L (136-145); eGFR For African Americans > 60 (> 60); eGFR For Non-African Americans > 60 (> 60)
[2020-12-09] MEDS: methylPREDNISolone 125 MG/2 ML VIAL IVP SCH ×2 (03:43→11:56)
[2020-12-09] MEDS: Levalbuterol Neb 1.25 MG/3 ML IH SCH ×5 (04:00→20:25)
[2020-12-09] MEDS: Famotidine 20 MG/2 ML VIAL IVP SCH (05:55)
[2020-12-09] MEDS: *HR* Heparin 5,000 UNIT/ML VIAL SQ SCH ×3 (05:58→21:13)
[2020-12-09] MEDS: Budesonide/Formoterol 160/4.5 1 PUFF INH IH SCH ×2 (07:56→20:25)
[2020-12-09] MEDS: Metoprolol XL (24 HR) Succ 50 MG TAB.ER.24H PO SCH (08:04)
[2020-12-09] MEDS: Loratadine 10 MG TABLET PO SCH (08:04)
[2020-12-09] MEDS: Gabapentin 300 MG CAPSULE PO SCH ×3 (08:04→21:12)
[2020-12-09] MEDS: amLODIPine 5 MG TABLET PO SCH (08:05)
[2020-12-09] MEDS: Lidocaine 5% OINT 35 APPL/35.44 GM TUBE TP SCH ×2 (08:05→21:13)
[2020-12-09] MEDS ORDERED: cefTRIAXone 1,000 MG in Water for inj. (sterile) 10 ML IVP SCH (09:00)
[2020-12-09] MEDS ORDERED: Acetaminophen 325 MG TABLET PO PRN (13:49)
[2020-12-09 15:05] LABS: Estimated Average Glucose 126 mg/dl
[2020-12-09] MEDS: predniSONE 20 MG TABLET PO SCH (17:14)
[2020-12-09] MEDS: traZODone 50 MG TABLET PO SCH (21:13)
[2020-12-09] MEDS ORDERED: *HR* LORazepam 2 MG/ML VIAL IVP ONE (23:55)
[2020-12-10] MEDS ORDERED: Levalbuterol Neb 1.25 MG/3 ML ONE
[2020-12-10] MEDS: Levalbuterol Neb 1.25 MG/3 ML IH SCH ×5 (03:32→15:47)
[2020-12-10 05:51] LABS: Hematocrit 39.1 % (37.5-50.1); Hemoglobin 12.8 g/dL (12.9-16.9); Mean Corpuscular HGB Conc 32.7 g/dL (31.6-35.5); Mean Corpuscular Volume 100.8 fL (83.0-100.0); Platelet Count 180 K/mcL (140-400); Red Blood Count 3.88 M/mcL (4.19-5.50); Red Cell Distribution Width 13.6 % (11.5-14.5)
[2020-12-10 05:53] LABS: White Blood Count 8.9 K/mcL (4.3-11.1)
[2020-12-10 06:07] LABS: BUN/Creatinine Ratio 25 (6-26); Blood Urea Nitrogen 20 mg/dL (8-23); Calcium 8.7 mg/dL (8.6-10.3); Carbon Dioxide 36 mEq/L (23-29); Chloride 99 mEq/L (98-107); Chol/HDL Ratio 2.3 (0-4.9); Cholesterol 154 mg/dL (< 200); Glucose 163 mg/dL (70-105); HDL Cholesterol 66 mg/dL (40-59); LDL Cholesterol,Calculated 71 mg/dL (< 100); Osmolality,Calculated 294 (280-300); Potassium 4.1 mEq/L (3.5-5.1); Sodium 139 mEq/L (136-145); Triglycerides 85 mg/dL (< 150); eGFR For African Americans > 60 (> 60); eGFR For Non-African Americans > 60 (> 60)
[2020-12-10] MEDS: *HR* Heparin 5,000 UNIT/ML VIAL SQ SCH (06:18)
[2020-12-10] MEDS: Budesonide/Formoterol 160/4.5 1 PUFF INH IH SCH (07:35)
[2020-12-10] MEDS ORDERED: Cholecalciferol (D-3) 1,000 UNIT (25MCG) TABLET PO SCH (09:00)
[2020-12-10] MEDS: predniSONE 20 MG TABLET PO SCH (09:02)
[2020-12-10] MEDS: Gabapentin 300 MG CAPSULE PO SCH (09:02)
[2020-12-10] MEDS: Loratadine 10 MG TABLET PO SCH (09:02)
[2020-12-10] MEDS: amLODIPine 5 MG TABLET PO SCH (09:03)
[2020-12-10] MEDS: Metoprolol XL (24 HR) Succ 50 MG TAB.ER.24H PO SCH (09:03)
[2020-12-10] MEDS: Lidocaine 5% OINT 35 APPL/35.44 GM TUBE TP SCH (09:04)
[2020-12-10 15:35] VITALS: BP 144/84
== END 2020-12-10 17:32 | disposition home or self-care (01) | DRG 190 ==
LOC: 3ANU 00:27 → EMEROOARM 00:27 → SUATTDRO 02:59 → 2NNU 03:28 → SUATTDRO 13:04 → 2ANU 16:23
PROVIDERS: ADMIT Student in an Organized Health Care Education/Training Program; ATTEND Internal Medicine

== ENCOUNTER 2020-12-21 07:03 | Inpatient (IN) ==
[2020-12-21 07:54] LABS: Basophils % 0.2 %; Eosinophils % 0.1 %; Hematocrit 43.1 % (37.5-50.1); Hemoglobin 13.4 g/dL (12.9-16.9); Immature Granulocytes % 0.8 % (0-4); Lymphocytes # 0.4 K/mcL (0.6-4.6); Lymphocytes % 3.1 %; Mean Corpuscular HGB Conc 31.1 g/dL (31.6-35.5); Mean Corpuscular Hemoglobin 32.2 pg (28.0-33.3); Mean Corpuscular Volume 103.6 fL (83.0-100.0); Mean Platelet Volume 8.5 fL (9.4-12.4); Monocytes # 0.9 K/mcL (0.0-1.3); Neutrophils # 11.1 K/mcL (1.6-8.9); Platelet Count 165 K/mcL (140-400); Red Blood Count 4.16 M/mcL (4.19-5.50); Segmented Neutrophils % 88.8 %; White Blood Count 12.5 K/mcL (4.3-11.1)
[2020-12-21 08:10] LABS: Prothrombin Time 11.4 Seconds (9.4-12.1)
[2020-12-21 08:26] LABS: BUN/Creatinine Ratio 24 (6-26); Blood Urea Nitrogen 15 mg/dL (8-23); Calcium 8.5 mg/dL (8.6-10.3); Carbon Dioxide 41 mEq/L (23-29); Chloride 90 mEq/L (98-107); Glucose 147 mg/dL (70-105); Osmolality,Calculated 284 (280-300); Sodium 135 mEq/L (136-145); Troponin I < 0.03 ng/mL (< 0.04); eGFR For African Americans > 60 (> 60); eGFR For Non-African Americans > 60 (> 60)
[2020-12-21 08:31] LABS: ABG Base Excess 13 mEq/L (-2 to 3); ABG HCO3 46 mEq/L (21-27); ABG Oxygen Saturation 94 % (95-98); ABG PCO2 111 mmHg (35-45); ABG PH 7.23 pH Units (7.32-7.45); ABG PO2 91 mmHg (85-104); ABG TCO2 50 mEq/L (20-26)
[2020-12-21] MEDS ORDERED: Cefepime HCl 1,000 MG in 0.9 % Sodium Chloride Mini Bag 100 ML IVPB ONE (08:55)
[2020-12-21] MEDS ORDERED: Vancomycin 1,250 MG/262.5 ML IV.SOLN IVPB ONE (08:56)
[2020-12-21 09:13] LABS: Albumin 3.7 g/dL (3.5-5.7); Albumin/Globulin Ratio 1.5 (1.1-2.2); Bilirubin,Direct 0.2 mg/dL (0.0-0.2); Bilirubin,Indirect 0.6 mg/dL (0.0-1.0); Bilirubin,Total 0.8 mg/dL (0.3-1.0); Globulin 2.5 g/dL (2.4-3.5); Total Protein 6.2 g/dL (6.4-8.9)
[2020-12-21 09:17] LABS: ABG Base Excess 13 mEq/L (-2 to 3); ABG HCO3 46 mEq/L (21-27); ABG Oxygen Saturation 90 % (95-98); ABG PCO2 102 mmHg (35-45); ABG PH 7.26 pH Units (7.32-7.45); ABG PO2 72 mmHg (85-104); ABG TCO2 49 mEq/L (20-26); Blood Gas Modality NIV; Blood Gas VT 500 cc
[2020-12-21 09:25] LABS: Thyroid Stimulating Hormone 1.003 mcIU/mL (0.340-5.600)
[2020-12-21 09:27] LABS: Adenovirus Not Detected (Not Detect); Bordetella Pertussis Not Detected (Not Detect); Chlamydophila pneumoniae Not Detected (Not Detect); Coronavirus 229E Not Detected (Not Detect); Coronavirus HKU1 Not Detected (Not Detect); Coronavirus NL63 Not Detected (Not Detect); Coronavirus OC43 Not Detected (Not Detect); Human Metapneumovirus Not Detected (Not Detect); Human Rhinovirus/Enterovirus Not Detected (Not Detect); Influenza A Subtype 2009 H1 Not Detected (Not Detect); Influenza B Not Detected (Not Detect); Mycoplasma pneumoniae Not Detected (Not Detect); Parainfluenza Virus 1 Not Detected (Not Detect); Parainfluenza Virus 2 Not Detected (Not Detect); Parainfluenza Virus 3 Not Detected (Not Detect); Parainfluenza Virus 4 Not Detected (Not Detect); Respiratory Syncytial Virus Not Detected (Not Detect); SARS-CoV-2 Not Detected (Not Detect)
[2020-12-21] MEDS ORDERED: Acetaminophen 325 MG TABLET PO PRN (10:23)
[2020-12-21] MEDS ORDERED: Ondansetron 4 MG/2 ML VIAL IVP PRN (10:23)
[2020-12-21] MEDS ORDERED: Naloxone 0.4 MG/ML INJ IVP PRN (10:23)
[2020-12-21 11:04] LABS: Bilirubin,Urine Negative (Negative); Blood,Urine Negative (Negative); Clarity,Urine Clear (Clear); Color,Urine Colorless (Yellow); Glucose,Urine (UA) Normal (Normal); Ketones,Urine Negative (Negative); Leukocyte Esterase,Urine Negative (Negative); Nitrite,Urine Negative (Negative); Protein,Urine Negative (Neg-Trace); Specific Gravity,Urine 1.009 (1.010-1.025); Urobilinogen,Urine Normal (Normal)
[2020-12-21 11:50] LABS: Blood Gas VT 500 cc; VBG HCO3 48 mEq/L (21-27); VBG PCO2 98 mmHg (41-51); VBG PO2 98 mmHg (25-50)
[2020-12-21] MEDS ORDERED: Ipratropium/Albuterol Neb 3 ML IH PRN (16:22)
[2020-12-21] MEDS: levoFLOXacin 750 MG/150 ML 750 MG/150 ML BAG IVPB SCH (17:01)
[2020-12-21] MEDS: Dexmedetomidine HCl 400 MCG/100 ML MLS IVC SCH (18:50)
[2020-12-21 20:29] LABS: ABG Base Excess 13 mEq/L (-2 to 3); ABG HCO3 43 mEq/L (21-27); ABG Oxygen Saturation 96 % (95-98); ABG PCO2 88 mmHg (35-45); ABG PO2 99 mmHg (85-104); ABG TCO2 46 mEq/L (20-26); Blood Gas Modality avaps; Blood Gas VT 500 cc
[2020-12-21] MEDS ORDERED: Haloperidol Lactate 5 MG/ML VIAL IVP ONE ×2 (21:50→22:58)
[2020-12-22] MEDS: Dexmedetomidine HCl 400 MCG/100 ML MLS IVC SCH ×4 (02:40→21:40)
[2020-12-22 05:10] LABS: VBG HCO3 47 mEq/L (21-27); VBG PCO2 108 mmHg (41-51); VBG PH 7.25 pH Units (7.32-7.42); VBG PO2 91 mmHg (25-50)
[2020-12-22 05:12] LABS: Basophils % 0.2 %; Eosinophils % 0.3 %; Hematocrit 41.1 % (37.5-50.1); Hemoglobin 12.7 g/dL (12.9-16.9); Immature Granulocytes % 0.5 % (0-4); Lymphocytes # 0.3 K/mcL (0.6-4.6); Lymphocytes % 3.5 %; Mean Corpuscular HGB Conc 30.9 g/dL (31.6-35.5); Mean Corpuscular Volume 103.5 fL (83.0-100.0); Mean Platelet Volume 8.9 fL (9.4-12.4); Monocytes # 0.7 K/mcL (0.0-1.3); Monocytes % 7.8 %; Neutrophils # 7.5 K/mcL (1.6-8.9); Platelet Count 159 K/mcL (140-400); Red Blood Count 3.97 M/mcL (4.19-5.50); Red Cell Distribution Width 13.8 % (11.5-14.5); Segmented Neutrophils % 87.7 %; White Blood Count 8.6 K/mcL (4.3-11.1)
[2020-12-22] MEDS: *HR* Enoxaparin 40 MG/0.4 ML SYRINGE SQ SCH (05:19)
[2020-12-22 05:32] LABS: BUN/Creatinine Ratio 22 (6-26); Blood Urea Nitrogen 15 mg/dL (8-23); Calcium 8.7 mg/dL (8.6-10.3); Carbon Dioxide 41 mEq/L (23-29); Chloride 95 mEq/L (98-107); Glucose 123 mg/dL (70-105); Magnesium 2.1 mg/dL (1.6-2.6); Osmolality,Calculated 290 (280-300); Potassium 4.3 mEq/L (3.5-5.1); Sodium 139 mEq/L (136-145); eGFR For African Americans > 60 (> 60); eGFR For Non-African Americans > 60 (> 60)
[2020-12-22 06:58] LABS: ABG Base Excess 11 mEq/L (-2 to 3); ABG HCO3 42 mEq/L (21-27); ABG Oxygen Saturation 96 % (95-98); ABG PCO2 93 mmHg (35-45); ABG PH 7.27 pH Units (7.32-7.45); ABG PO2 104 mmHg (85-104); ABG TCO2 45 mEq/L (20-26); Blood Gas Modality AVAPS; Blood Gas VT 550 cc
[2020-12-22 09:32] LABS: Hematocrit 37.7 % (37.5-50.1); Hemoglobin 11.4 g/dL (12.9-16.9); Mean Corpuscular HGB Conc 30.2 g/dL (31.6-35.5); Mean Corpuscular Hemoglobin 31.8 pg (28.0-33.3); Mean Corpuscular Volume 105.3 fL (83.0-100.0); Mean Platelet Volume 8.9 fL (9.4-12.4); Platelet Count 148 K/mcL (140-400); Red Blood Count 3.58 M/mcL (4.19-5.50); Red Cell Distribution Width 13.8 % (11.5-14.5); White Blood Count 8.6 K/mcL (4.3-11.1)
[2020-12-22 09:39] LABS: VBG HCO3 47 mEq/L (21-27); VBG PCO2 114 mmHg (41-51); VBG PH 7.23 pH Units (7.32-7.42); VBG PO2 57 mmHg (25-50)
[2020-12-22 10:10] LABS: ABG Base Excess 16 mEq/L (-2 to 3); ABG HCO3 47 mEq/L (21-27); ABG Oxygen Saturation 95 % (95-98); ABG PCO2 102 mmHg (35-45); ABG PH 7.28 pH Units (7.32-7.45); ABG PO2 96 mmHg (85-104); ABG TCO2 > 50 mEq/L (20-26); Blood Gas VT 500 cc
[2020-12-22] MEDS: Ipratropium/Albuterol Neb 3 ML IH SCH ×4 (11:14→23:28)
[2020-12-22] MEDS: MethylPREDNISolone 40 MG/ML VIAL IVP SCH ×2 (12:01→20:04)
[2020-12-22 15:37] LABS: ABG Base Excess 14 mEq/L (-2 to 3); ABG HCO3 44 mEq/L (21-27); ABG Oxygen Saturation 97 % (95-98); ABG PCO2 87 mmHg (35-45); ABG PH 7.32 pH Units (7.32-7.45); ABG PO2 110 mmHg (85-104); ABG TCO2 47 mEq/L (20-26); Blood Gas VT 500 cc
[2020-12-22] MEDS: levoFLOXacin 750 MG/150 ML 750 MG/150 ML BAG IVPB SCH (17:00)
[2020-12-22] MEDS: Budesonide/Formoterol 160/4.5 1 PUFF INH IH SCH (19:33)
[2020-12-22] MEDS ORDERED: Haloperidol Lactate 5 MG/ML VIAL IVP ONE (20:22)
[2020-12-22] MEDS ORDERED: *HR* LORazepam 2 MG/ML VIAL ONE (21:26)
[2020-12-22] MEDS: *HR* LORazepam 2 MG/ML VIAL IVP PRN (21:39)
[2020-12-23] MEDS: Dexmedetomidine HCl 400 MCG/100 ML MLS IVC SCH ×3 (03:28→15:30)
[2020-12-23] MEDS: Ipratropium/Albuterol Neb 3 ML IH SCH ×6 (03:32→23:42)
[2020-12-23] MEDS: *HR* LORazepam 2 MG/ML VIAL IVP PRN ×5 (03:43→19:04)
[2020-12-23] MEDS: MethylPREDNISolone 40 MG/ML VIAL IVP SCH ×3 (03:43→20:46)
[2020-12-23 05:09] LABS: VBG Ionized Calcium 1.12 mmol/L (1.15-1.35)
[2020-12-23 05:26] LABS: Alanine Aminotransferase 11 Units/L (7-52); Albumin 3.7 g/dL (3.5-5.7); Albumin/Globulin Ratio 1.5 (1.1-2.2); Alkaline Phosphatase 70 Units/L (34-104); Aspartate Amino Transferase 13 Units/L (13-39); BUN/Creatinine Ratio 24 (6-26); Blood Urea Nitrogen 12 mg/dL (8-23); Calcium 8.7 mg/dL (8.6-10.3); Carbon Dioxide 37 mEq/L (23-29); Chloride 92 mEq/L (98-107); Globulin 2.4 g/dL (2.4-3.5); Glucose 173 mg/dL (70-105); Magnesium 1.9 mg/dL (1.6-2.6); Osmolality,Calculated 282 (280-300); Phosphorous 2.4 mg/dL (2.7-4.5); Potassium 3.9 mEq/L (3.5-5.1); Sodium 134 mEq/L (136-145); Total Protein 6.1 g/dL (6.4-8.9); eGFR For African Americans > 60 (> 60); eGFR For Non-African Americans > 60 (> 60)
[2020-12-23 06:23] LABS: Basophils % 0.2 %; Hematocrit 38.7 % (37.5-50.1); Immature Granulocytes % 0.8 % (0-4); Lymphocytes # 0.1 K/mcL (0.6-4.6); Lymphocytes % 2.5 %; Mean Corpuscular HGB Conc 33.6 g/dL (31.6-35.5); Mean Corpuscular Hemoglobin 32.9 pg (28.0-33.3); Mean Platelet Volume 8.6 fL (9.4-12.4); Monocytes # 0.1 K/mcL (0.0-1.3); Monocytes % 2.1 %; Platelet Count 191 K/mcL (140-400); Red Blood Count 3.95 M/mcL (4.19-5.50); Red Cell Distribution Width 13.3 % (11.5-14.5); Segmented Neutrophils % 94.4 %; White Blood Count 4.7 K/mcL (4.3-11.1)
[2020-12-23 06:36] LABS: Neutrophils # 4.4 K/mcL (1.6-8.9)
[2020-12-23] MEDS: *HR* Enoxaparin 40 MG/0.4 ML SYRINGE SQ SCH (06:46)
[2020-12-23 07:04] LABS: Platelet Estimate Normal (Normal)
[2020-12-23] MEDS: Budesonide/Formoterol 160/4.5 1 PUFF INH IH SCH ×2 (07:33→19:49)
[2020-12-23] MEDS ORDERED: *HR* LORazepam 2 MG/ML VIAL IVP PRN (07:48)
[2020-12-23] MEDS ORDERED: *HR* Promethazine 25 MG/ML VIAL IM PRN (07:48)
[2020-12-23] MEDS ORDERED: *HR* Metoprolol 5 MG/5 ML VIAL IVP ONE ×2 (16:44→16:49)
[2020-12-23] MEDS: levoFLOXacin 750 MG/150 ML 750 MG/150 ML BAG IVPB SCH (16:59)
[2020-12-23] MEDS ORDERED: Thiamine (B-1) 100 MG, Folic Acid 1 MG, MVI, adult with vitamin K 10 ML in 0.9 % Sodi... IVPB SCH (18:00)
[2020-12-24] MEDS: *HR* LORazepam 2 MG/ML VIAL IVP PRN ×4 (01:30→12:52)
[2020-12-24] MEDS: MethylPREDNISolone 40 MG/ML VIAL IVP SCH (03:32)
[2020-12-24] MEDS: Ipratropium/Albuterol Neb 3 ML IH SCH ×5 (03:38→20:23)
[2020-12-24 04:14] LABS: Basophils % 0.1 %; Hematocrit 40.6 % (37.5-50.1); Immature Granulocytes % 0.7 % (0-4); Lymphocytes # 0.2 K/mcL (0.6-4.6); Lymphocytes % 2.1 %; Mean Corpuscular Hemoglobin 31.6 pg (28.0-33.3); Mean Corpuscular Volume 98.8 fL (83.0-100.0); Mean Platelet Volume 8.4 fL (9.4-12.4); Monocytes # 0.3 K/mcL (0.0-1.3); Neutrophils # 8.3 K/mcL (1.6-8.9); Platelet Count 197 K/mcL (140-400); Red Blood Count 4.11 M/mcL (4.19-5.50); Red Cell Distribution Width 13.7 % (11.5-14.5); Segmented Neutrophils % 94.1 %
[2020-12-24 04:15] LABS: VBG Ionized Calcium 1.13 mmol/L (1.15-1.35)
[2020-12-24 04:22] LABS: White Blood Count 8.8 K/mcL (4.3-11.1)
[2020-12-24 04:35] LABS: Alanine Aminotransferase 11 Units/L (7-52); Albumin 3.5 g/dL (3.5-5.7); Albumin/Globulin Ratio 1.5 (1.1-2.2); Alkaline Phosphatase 66 Units/L (34-104); Aspartate Amino Transferase 13 Units/L (13-39); BUN/Creatinine Ratio 22 (6-26); Bilirubin,Total 0.9 mg/dL (0.3-1.0); Blood Urea Nitrogen 15 mg/dL (8-23); Calcium 8.8 mg/dL (8.6-10.3); Carbon Dioxide 36 mEq/L (23-29); Chloride 95 mEq/L (98-107); Globulin 2.3 g/dL (2.4-3.5); Glucose 149 mg/dL (70-105); Osmolality,Calculated 286 (280-300); Phosphorous 2.8 mg/dL (2.7-4.5); Sodium 136 mEq/L (136-145); Total Protein 5.8 g/dL (6.4-8.9); eGFR For African Americans > 60 (> 60); eGFR For Non-African Americans > 60 (> 60)
[2020-12-24] MEDS: *HR* Enoxaparin 40 MG/0.4 ML SYRINGE SQ SCH (05:19)
[2020-12-24] MEDS: Dexmedetomidine HCl 400 MCG/100 ML MLS IVC SCH ×2 (07:00→13:05)
[2020-12-24] MEDS: Budesonide/Formoterol 160/4.5 1 PUFF INH IH SCH ×2 (07:12→20:23)
[2020-12-24] MEDS ORDERED: Budesonide/Formoterol 160/4.5 1 PUFF INH IH SCH (09:00)
[2020-12-24] MEDS ORDERED: Gabapentin 300 MG CAPSULE PO SCH (09:00)
[2020-12-24] MEDS: Calcium Gluconate 1gm/50mL 1 GM/50 ML BAG IVPB SCH (09:17)
[2020-12-24] MEDS ORDERED: *HR* LORazepam 2 MG/ML VIAL IVP PRN (12:16)
[2020-12-24] MEDS ORDERED: Ipratropium/Albuterol Neb 3 ML IH PRN (12:16)
[2020-12-24] MEDS ORDERED: Ondansetron 4 MG/2 ML VIAL IVP PRN (12:16)
[2020-12-24] MEDS ORDERED: *HR* Promethazine 25 MG/ML VIAL IM PRN (12:16)
[2020-12-24] MEDS ORDERED: Naloxone 0.4 MG/ML INJ IVP PRN (12:16)
[2020-12-24] MEDS ORDERED: Acetaminophen 325 MG TABLET PO PRN (12:16)
[2020-12-24] MEDS ORDERED: MethylPREDNISolone 40 MG/ML VIAL IVP SCH ×2 (13:00)
[2020-12-24] MEDS: Gabapentin 300 MG CAPSULE PO SCH ×2 (15:33→20:35)
[2020-12-24] MEDS: levoFLOXacin 750 MG/150 ML 750 MG/150 ML BAG IVPB SCH (18:09)
[2020-12-24] MEDS: Thiamine (B-1) 100 MG, Folic Acid 1 MG, MVI, adult with vitamin K 10 ML in 0.9 % Sodi... IVPB SCH (18:09)
[2020-12-24] MEDS: traZODone 50 MG TABLET PO SCH (20:35)
[2020-12-24] MEDS ORDERED: traZODone 50 MG TABLET PO SCH (21:00)
[2020-12-25] MEDS: Ipratropium/Albuterol Neb 3 ML IH SCH ×7 (00:06→23:32)
[2020-12-25 05:23] LABS: VBG Ionized Calcium 0.94 mmol/L (1.15-1.35)
[2020-12-25 05:32] LABS: Hematocrit 41.4 % (37.5-50.1); Hemoglobin 13.6 g/dL (12.9-16.9); Immature Granulocytes % 0.4 % (0-4); Lymphocytes # 0.6 K/mcL (0.6-4.6); Lymphocytes % 8.8 %; Mean Corpuscular HGB Conc 32.9 g/dL (31.6-35.5); Mean Corpuscular Hemoglobin 32.8 pg (28.0-33.3); Mean Corpuscular Volume 99.8 fL (83.0-100.0); Mean Platelet Volume 8.4 fL (9.4-12.4); Monocytes # 0.7 K/mcL (0.0-1.3); Monocytes % 9.6 %; Neutrophils # 5.7 K/mcL (1.6-8.9); Platelet Count 205 K/mcL (140-400); Red Blood Count 4.15 M/mcL (4.19-5.50); Red Cell Distribution Width 13.8 % (11.5-14.5); Segmented Neutrophils % 81.2 %
[2020-12-25] MEDS: *HR* Enoxaparin 40 MG/0.4 ML SYRINGE SQ SCH (05:39)
[2020-12-25 05:47] LABS: Alanine Aminotransferase 10 Units/L (7-52); Albumin 3.5 g/dL (3.5-5.7); Albumin/Globulin Ratio 1.5 (1.1-2.2); Alkaline Phosphatase 60 Units/L (34-104); Aspartate Amino Transferase 13 Units/L (13-39); BUN/Creatinine Ratio 20 (6-26); Bilirubin,Total 1.1 mg/dL (0.3-1.0); Blood Urea Nitrogen 13 mg/dL (8-23); Calcium 8.5 mg/dL (8.6-10.3); Carbon Dioxide 37 mEq/L (23-29); Chloride 97 mEq/L (98-107); Globulin 2.3 g/dL (2.4-3.5); Glucose 93 mg/dL (70-105); Magnesium 1.9 mg/dL (1.6-2.6); Osmolality,Calculated 284 (280-300); Phosphorous 2.2 mg/dL (2.7-4.5); Potassium 3.7 mEq/L (3.5-5.1); Sodium 137 mEq/L (136-145); Total Protein 5.8 g/dL (6.4-8.9); eGFR For African Americans > 60 (> 60); eGFR For Non-African Americans > 60 (> 60)
[2020-12-25] MEDS: Budesonide/Formoterol 160/4.5 1 PUFF INH IH SCH ×2 (07:17→20:00)
[2020-12-25] MEDS: Gabapentin 300 MG CAPSULE PO SCH ×3 (08:05→19:37)
[2020-12-25] MEDS: predniSONE 20 MG TABLET PO SCH (08:05)
[2020-12-25] MEDS ORDERED: predniSONE 20 MG TABLET PO SCH (09:00)
[2020-12-25] MEDS ORDERED: Potassium Phosphate 44 MEQ in 0.9 % Sodium Chloride 250 ML IVPB ONE (12:00)
[2020-12-25 14:57] LABS: VBG HCO3 39 mEq/L (21-27); VBG PCO2 76 mmHg (41-51); VBG PH 7.31 pH Units (7.32-7.42); VBG PO2 51 mmHg (25-50)
[2020-12-25] MEDS: levoFLOXacin 750 MG/150 ML 750 MG/150 ML BAG IVPB SCH (16:19)
[2020-12-25] MEDS: Thiamine (B-1) 100 MG, Folic Acid 1 MG, MVI, adult with vitamin K 10 ML in 0.9 % Sodi... IVPB SCH (17:21)
[2020-12-25] MEDS: Dexmedetomidine HCl 400 MCG/100 ML MLS IVC SCH (19:12)
[2020-12-25] MEDS: Calcium Gluconate 1gm/50mL 1 GM/50 ML BAG IVPB SCH (19:12)
[2020-12-25] MEDS: traZODone 50 MG TABLET PO SCH (19:37)
[2020-12-25] MEDS: *HR* LORazepam 2 MG/ML VIAL IVP PRN ×2 (19:37→21:41)
[2020-12-26] MEDS: Ipratropium/Albuterol Neb 3 ML IH SCH ×5 (03:55→20:15)
[2020-12-26] MEDS: *HR* Enoxaparin 40 MG/0.4 ML SYRINGE SQ SCH (05:53)
[2020-12-26 06:04] LABS: VBG HCO3 45 mEq/L (21-27); VBG Ionized Calcium 1.27 mmol/L (1.15-1.35); VBG PCO2 103 mmHg (41-51); VBG PH 7.25 pH Units (7.32-7.42); VBG PO2 58 mmHg (25-50)
[2020-12-26 06:07] LABS: Basophils % 0.2 %; Eosinophils % 0.2 %; Hematocrit 44.3 % (37.5-50.1); Hemoglobin 13.4 g/dL (12.9-16.9); Immature Granulocytes % 0.5 % (0-4); Lymphocytes # 0.5 K/mcL (0.6-4.6); Lymphocytes % 8.3 %; Mean Corpuscular HGB Conc 30.2 g/dL (31.6-35.5); Mean Corpuscular Hemoglobin 31.6 pg (28.0-33.3); Mean Corpuscular Volume 104.5 fL (83.0-100.0); Mean Platelet Volume 8.7 fL (9.4-12.4); Monocytes # 0.6 K/mcL (0.0-1.3); Monocytes % 9.8 %; Neutrophils # 4.8 K/mcL (1.6-8.9); Platelet Count 173 K/mcL (140-400); Red Blood Count 4.24 M/mcL (4.19-5.50); White Blood Count 5.9 K/mcL (4.3-11.1)
[2020-12-26 06:32] LABS: Alanine Aminotransferase 12 Units/L (7-52); Albumin 3.5 g/dL (3.5-5.7); Albumin/Globulin Ratio 1.7 (1.1-2.2); Alkaline Phosphatase 65 Units/L (34-104); Aspartate Amino Transferase 11 Units/L (13-39); BUN/Creatinine Ratio 23 (6-26); Bilirubin,Total 0.6 mg/dL (0.3-1.0); Blood Urea Nitrogen 17 mg/dL (8-23); Calcium 8.7 mg/dL (8.6-10.3); Carbon Dioxide 41 mEq/L (23-29); Chloride 100 mEq/L (98-107); Globulin 2.1 g/dL (2.4-3.5); Glucose 122 mg/dL (70-105); Magnesium 1.9 mg/dL (1.6-2.6); Osmolality,Calculated 299 (280-300); Phosphorous 3.3 mg/dL (2.7-4.5); Potassium 3.7 mEq/L (3.5-5.1); Sodium 143 mEq/L (136-145); Total Protein 5.6 g/dL (6.4-8.9); eGFR For African Americans > 60 (> 60); eGFR For Non-African Americans > 60 (> 60)
[2020-12-26] MEDS: Budesonide/Formoterol 160/4.5 1 PUFF INH IH SCH ×2 (07:13→20:15)
[2020-12-26] MEDS: Gabapentin 300 MG CAPSULE PO SCH ×3 (08:29→23:27)
[2020-12-26] MEDS: predniSONE 20 MG TABLET PO SCH (08:30)
[2020-12-26] MEDS: amLODIPine 5 MG TABLET PO SCH (08:31)
[2020-12-26] MEDS: *HR* LORazepam 2 MG/ML VIAL IVP PRN ×2 (10:47→19:14)
[2020-12-26] MEDS: traZODone 50 MG TABLET PO SCH (23:27)
[2020-12-27] MEDS: Ipratropium/Albuterol Neb 3 ML IH SCH ×7 (00:32→23:53)
[2020-12-27 05:28] LABS: VBG HCO3 44 mEq/L (21-27); VBG PCO2 89 mmHg (41-51); VBG PH 7.31 pH Units (7.32-7.42); VBG PO2 97 mmHg (25-50)
[2020-12-27 05:47] LABS: BUN/Creatinine Ratio 24 (6-26); Blood Urea Nitrogen 17 mg/dL (8-23); Calcium 8.7 mg/dL (8.6-10.3); Carbon Dioxide 43 mEq/L (23-29); Chloride 99 mEq/L (98-107); Glucose 117 mg/dL (70-105); Osmolality,Calculated 299 (280-300); Potassium 3.8 mEq/L (3.5-5.1); Sodium 143 mEq/L (136-145); eGFR For African Americans > 60 (> 60); eGFR For Non-African Americans > 60 (> 60)
[2020-12-27] MEDS: *HR* Enoxaparin 40 MG/0.4 ML SYRINGE SQ SCH (06:30)
[2020-12-27] MEDS: Budesonide/Formoterol 160/4.5 1 PUFF INH IH SCH ×2 (07:15→19:56)
[2020-12-27] MEDS: Gabapentin 300 MG CAPSULE PO SCH ×3 (08:11→20:09)
[2020-12-27] MEDS: predniSONE 20 MG TABLET PO SCH (08:12)
[2020-12-27] MEDS: amLODIPine 5 MG TABLET PO SCH (08:12)
[2020-12-27] MEDS: *HR* LORazepam 2 MG/ML VIAL IVP PRN (13:10)
[2020-12-27] MEDS: traZODone 50 MG TABLET PO SCH (20:09)
[2020-12-28] MEDS: Ipratropium/Albuterol Neb 3 ML IH SCH ×5 (03:55→19:21)
[2020-12-28 05:03] LABS: VBG HCO3 46 mEq/L (21-27); VBG PCO2 80 mmHg (41-51); VBG PH 7.37 pH Units (7.32-7.42); VBG PO2 97 mmHg (25-50)
[2020-12-28] MEDS: *HR* Enoxaparin 40 MG/0.4 ML SYRINGE SQ SCH (05:19)
[2020-12-28 05:37] LABS: BUN/Creatinine Ratio 27 (6-26); Blood Urea Nitrogen 17 mg/dL (8-23); Calcium 8.6 mg/dL (8.6-10.3); Carbon Dioxide > 45 mEq/L (23-29); Chloride 97 mEq/L (98-107); Glucose 97 mg/dL (70-105); Magnesium 1.9 mg/dL (1.6-2.6); Osmolality,Calculated 299 (280-300); Potassium 3.7 mEq/L (3.5-5.1); Sodium 144 mEq/L (136-145); eGFR For African Americans > 60 (> 60); eGFR For Non-African Americans > 60 (> 60)
[2020-12-28] MEDS: Gabapentin 300 MG CAPSULE PO SCH ×3 (07:42→19:53)
[2020-12-28] MEDS: predniSONE 20 MG TABLET PO SCH (07:42)
[2020-12-28] MEDS: amLODIPine 5 MG TABLET PO SCH (07:42)
[2020-12-28] MEDS: Budesonide/Formoterol 160/4.5 1 PUFF INH IH SCH ×2 (07:51→19:21)
[2020-12-28] MEDS: *HR* LORazepam 2 MG/ML VIAL IVP PRN ×2 (10:26→12:28)
[2020-12-28] MEDS ORDERED: Dexmedetomidine HCl 400 MCG/100 ML MLS IVC ONE (12:18)
[2020-12-28] MEDS: Dexmedetomidine HCl 400 MCG/100 ML MLS IVC SCH ×2 (12:20→19:32)
[2020-12-28] MEDS: traZODone 50 MG TABLET PO SCH (19:53)
[2020-12-29] MEDS: Ipratropium/Albuterol Neb 3 ML IH SCH ×7 (00:48→23:43)
[2020-12-29] MEDS: Dexmedetomidine HCl 400 MCG/100 ML MLS IVC SCH ×3 (02:19→20:12)
[2020-12-29 02:28] LABS: Hematocrit 38.9 % (37.5-50.1); Hemoglobin 12.1 g/dL (12.9-16.9); Mean Corpuscular HGB Conc 31.1 g/dL (31.6-35.5); Mean Corpuscular Hemoglobin 31.8 pg (28.0-33.3); Mean Corpuscular Volume 102.4 fL (83.0-100.0); Mean Platelet Volume 8.5 fL (9.4-12.4); Platelet Count 156 K/mcL (140-400); Red Cell Distribution Width 13.4 % (11.5-14.5)
[2020-12-29 02:34] LABS: VBG HCO3 46 mEq/L (21-27); VBG PCO2 70 mmHg (41-51); VBG PH 7.42 pH Units (7.32-7.42); VBG PO2 167 mmHg (25-50)
[2020-12-29 02:48] LABS: Alanine Aminotransferase 10 Units/L (7-52); Albumin 3.2 g/dL (3.5-5.7); Albumin/Globulin Ratio 1.6 (1.1-2.2); Alkaline Phosphatase 59 Units/L (34-104); Aspartate Amino Transferase 10 Units/L (13-39); BUN/Creatinine Ratio 36 (6-26); Bilirubin,Direct 0.2 mg/dL (0.0-0.2); Bilirubin,Indirect 0.7 mg/dL (0.0-1.0); Bilirubin,Total 0.9 mg/dL (0.3-1.0); Blood Urea Nitrogen 19 mg/dL (8-23); Calcium 8.8 mg/dL (8.6-10.3); Carbon Dioxide > 45 mEq/L (23-29); Chloride 94 mEq/L (98-107); Glucose 115 mg/dL (70-105); Osmolality,Calculated 297 (280-300); Phosphorous 3.1 mg/dL (2.7-4.5); Potassium 4.1 mEq/L (3.5-5.1); Sodium 142 mEq/L (136-145); Total Protein 5.2 g/dL (6.4-8.9); eGFR For African Americans > 60 (> 60); eGFR For Non-African Americans > 60 (> 60)
[2020-12-29] MEDS: *HR* Enoxaparin 40 MG/0.4 ML SYRINGE SQ SCH (06:44)
[2020-12-29] MEDS: Budesonide/Formoterol 160/4.5 1 PUFF INH IH SCH ×2 (07:36→19:46)
[2020-12-29] MEDS: amLODIPine 5 MG TABLET PO SCH (07:48)
[2020-12-29] MEDS: Gabapentin 300 MG CAPSULE PO SCH ×3 (07:49→20:15)
[2020-12-29] MEDS: predniSONE 20 MG TABLET PO SCH (07:49)
[2020-12-29] MEDS: *HR* LORazepam 2 MG/ML VIAL IVP PRN (13:09)
[2020-12-29] MEDS: Folic Acid 1 MG TABLET PO SCH (17:30)
[2020-12-29] MEDS: Thiamine (B-1) 100 MG TABLET PO SCH (17:30)
[2020-12-29] MEDS: Vitamin B Complex/Vit C/Vit E 1 EACH TABLET PO SCH (17:30)
[2020-12-29] MEDS: traZODone 50 MG TABLET PO SCH (20:15)
[2020-12-30] MEDS: Ipratropium/Albuterol Neb 3 ML IH SCH ×6 (04:01→23:31)
[2020-12-30] MEDS: Dexmedetomidine HCl 400 MCG/100 ML MLS IVC SCH (04:32)
[2020-12-30 06:24] LABS: VBG HCO3 48 mEq/L (21-27); VBG PCO2 86 mmHg (41-51); VBG PH 7.35 pH Units (7.32-7.42); VBG PO2 48 mmHg (25-50)
[2020-12-30] MEDS: *HR* Enoxaparin 40 MG/0.4 ML SYRINGE SQ SCH (06:47)
[2020-12-30 06:54] LABS: BUN/Creatinine Ratio 31 (6-26); Blood Urea Nitrogen 18 mg/dL (8-23); Calcium 8.9 mg/dL (8.6-10.3); Carbon Dioxide 45 mEq/L (23-29); Chloride 91 mEq/L (98-107); Glucose 101 mg/dL (70-105); Osmolality,Calculated 290 (280-300); Potassium 3.8 mEq/L (3.5-5.1); Sodium 139 mEq/L (136-145); eGFR For African Americans > 60 (> 60); eGFR For Non-African Americans > 60 (> 60)
[2020-12-30] MEDS: Thiamine (B-1) 100 MG TABLET PO SCH (08:16)
[2020-12-30] MEDS: predniSONE 20 MG TABLET PO SCH (08:16)
[2020-12-30] MEDS: amLODIPine 5 MG TABLET PO SCH (08:16)
[2020-12-30] MEDS: Folic Acid 1 MG TABLET PO SCH (08:16)
[2020-12-30] MEDS: Vitamin B Complex/Vit C/Vit E 1 EACH TABLET PO SCH (08:16)
[2020-12-30] MEDS: Gabapentin 300 MG CAPSULE PO SCH ×3 (08:17→20:44)
[2020-12-30] MEDS: QUEtiapine Fumarate 25 MG TABLET PO SCH ×2 (10:26→20:44)
[2020-12-30] MEDS: Budesonide/Formoterol 160/4.5 1 PUFF INH IH SCH ×2 (11:29→19:30)
[2020-12-30] MEDS ORDERED: *HR* Metoprolol 5 MG/5 ML VIAL IVP ONE (18:15)
[2020-12-30 18:58] LABS: Hematocrit 37.4 % (37.5-50.1); Hemoglobin 11.9 g/dL (12.9-16.9); Mean Corpuscular HGB Conc 31.8 g/dL (31.6-35.5); Mean Corpuscular Hemoglobin 31.7 pg (28.0-33.3); Mean Corpuscular Volume 99.7 fL (83.0-100.0); Mean Platelet Volume 8.9 fL (9.4-12.4); Platelet Count 187 K/mcL (140-400); Red Blood Count 3.75 M/mcL (4.19-5.50); Red Cell Distribution Width 13.3 % (11.5-14.5); White Blood Count 6.7 K/mcL (4.3-11.1)
[2020-12-30 19:00] LABS: VBG HCO3 40 mEq/L (21-27); VBG PCO2 59 mmHg (41-51); VBG PH 7.43 pH Units (7.32-7.42); VBG PO2 191 mmHg (25-50)
[2020-12-30 19:13] LABS: Magnesium 1.8 mg/dL (1.6-2.6)
[2020-12-30 19:14] LABS: Troponin I < 0.03 ng/mL (< 0.04)
[2020-12-30 19:54] LABS: BUN/Creatinine Ratio 30 (6-26); Blood Urea Nitrogen 24 mg/dL (8-23); Calcium 8.9 mg/dL (8.6-10.3); Carbon Dioxide 32 mEq/L (23-29); Chloride 93 mEq/L (98-107); Glucose 183 mg/dL (70-105); Osmolality,Calculated 293 (280-300); Potassium 4.3 mEq/L (3.5-5.1); Sodium 137 mEq/L (136-145); eGFR For African Americans > 60 (> 60); eGFR For Non-African Americans > 60 (> 60)
[2020-12-30] MEDS: traZODone 50 MG TABLET PO SCH (20:44)
[2020-12-31] MEDS: *HR* LORazepam 2 MG/ML VIAL IVP PRN ×2 (00:44→08:12)
[2020-12-31] MEDS: Ipratropium/Albuterol Neb 3 ML IH SCH ×5 (03:27→20:11)
[2020-12-31] MEDS: *HR* Enoxaparin 40 MG/0.4 ML SYRINGE SQ SCH (05:23)
[2020-12-31] MEDS: Budesonide/Formoterol 160/4.5 1 PUFF INH IH SCH ×2 (07:23→20:11)
[2020-12-31 07:26] LABS: VBG HCO3 46 mEq/L (21-27); VBG PCO2 90 mmHg (41-51); VBG PH 7.32 pH Units (7.32-7.42); VBG PO2 67 mmHg (25-50)
[2020-12-31 08:16] LABS: BUN/Creatinine Ratio 33 (6-26); Blood Urea Nitrogen 23 mg/dL (8-23); Calcium 8.9 mg/dL (8.6-10.3); Carbon Dioxide 45 mEq/L (23-29); Chloride 94 mEq/L (98-107); Glucose 101 mg/dL (70-105); Osmolality,Calculated 298 (280-300); Potassium 3.6 mEq/L (3.5-5.1); Sodium 142 mEq/L (136-145); eGFR For African Americans > 60 (> 60); eGFR For Non-African Americans > 60 (> 60)
[2020-12-31] MEDS: Thiamine (B-1) 100 MG TABLET PO SCH (08:29)
[2020-12-31] MEDS: Gabapentin 300 MG CAPSULE PO SCH ×3 (08:29→21:41)
[2020-12-31] MEDS: Dexmedetomidine HCl 400 MCG/100 ML MLS IVC SCH (08:29)
[2020-12-31] MEDS: predniSONE 20 MG TABLET PO SCH (08:29)
[2020-12-31] MEDS: QUEtiapine Fumarate 25 MG TABLET PO SCH ×2 (08:30→21:42)
[2020-12-31] MEDS: Vitamin B Complex/Vit C/Vit E 1 EACH TABLET PO SCH (08:30)
[2020-12-31] MEDS: amLODIPine 5 MG TABLET PO SCH (08:30)
[2020-12-31] MEDS: Folic Acid 1 MG TABLET PO SCH (08:31)
[2020-12-31] MEDS: traZODone 50 MG TABLET PO SCH (21:42)
[2021-01-01] MEDS: Ipratropium/Albuterol Neb 3 ML IH SCH ×6 (00:23→19:59)
[2021-01-01 01:53] LABS: VBG HCO3 46 mEq/L (21-27); VBG PCO2 59 mmHg (41-51); VBG PO2 211 mmHg (25-50)
[2021-01-01 02:21] LABS: BUN/Creatinine Ratio 34 (6-26); Blood Urea Nitrogen 23 mg/dL (8-23); Calcium 8.6 mg/dL (8.6-10.3); Carbon Dioxide 42 mEq/L (23-29); Chloride 96 mEq/L (98-107); Glucose 105 mg/dL (70-105); Osmolality,Calculated 298 (280-300); Sodium 142 mEq/L (136-145); eGFR For African Americans > 60 (> 60); eGFR For Non-African Americans > 60 (> 60)
[2021-01-01] MEDS: Dexmedetomidine HCl 400 MCG/100 ML MLS IVC SCH ×2 (03:35→19:15)
[2021-01-01] MEDS: *HR* Enoxaparin 40 MG/0.4 ML SYRINGE SQ SCH (05:24)
[2021-01-01] MEDS: Budesonide/Formoterol 160/4.5 1 PUFF INH IH SCH ×2 (07:20→19:59)
[2021-01-01] MEDS: Thiamine (B-1) 100 MG TABLET PO SCH (08:35)
[2021-01-01] MEDS: predniSONE 20 MG TABLET PO SCH (08:35)
[2021-01-01] MEDS: Folic Acid 1 MG TABLET PO SCH (08:36)
[2021-01-01] MEDS: QUEtiapine Fumarate 25 MG TABLET PO SCH ×2 (08:37→20:59)
[2021-01-01] MEDS: amLODIPine 5 MG TABLET PO SCH (08:37)
[2021-01-01] MEDS: Gabapentin 300 MG CAPSULE PO SCH ×3 (08:37→20:59)
[2021-01-01] MEDS: Vitamin B Complex/Vit C/Vit E 1 EACH TABLET PO SCH (08:37)
[2021-01-01] MEDS: *HR* LORazepam 2 MG/ML VIAL IVP PRN (18:29)
[2021-01-01] MEDS: traZODone 50 MG TABLET PO SCH (21:00)
[2021-01-02] MEDS: Ipratropium/Albuterol Neb 3 ML IH SCH ×7 (00:14→23:47)
[2021-01-02] MEDS: Dexmedetomidine HCl 400 MCG/100 ML MLS IVC SCH ×3 (03:10→20:41)
[2021-01-02] MEDS: *HR* Enoxaparin 40 MG/0.4 ML SYRINGE SQ SCH (06:24)
[2021-01-02 07:11] LABS: VBG HCO3 43 mEq/L (21-27); VBG PCO2 71 mmHg (41-51); VBG PO2 134 mmHg (25-50)
[2021-01-02] MEDS: Budesonide/Formoterol 160/4.5 1 PUFF INH IH SCH ×2 (07:46→22:15)
[2021-01-02 07:48] LABS: BUN/Creatinine Ratio 39 (6-26); Blood Urea Nitrogen 29 mg/dL (8-23); Calcium 8.8 mg/dL (8.6-10.3); Carbon Dioxide 44 mEq/L (23-29); Chloride 96 mEq/L (98-107); Glucose 140 mg/dL (70-105); Osmolality,Calculated 302 (280-300); Potassium 3.6 mEq/L (3.5-5.1); Sodium 142 mEq/L (136-145); eGFR For African Americans > 60 (> 60); eGFR For Non-African Americans > 60 (> 60)
[2021-01-02] MEDS: Gabapentin 300 MG CAPSULE PO SCH ×3 (08:20→20:41)
[2021-01-02] MEDS: Folic Acid 1 MG TABLET PO SCH (08:20)
[2021-01-02] MEDS: amLODIPine 5 MG TABLET PO SCH (08:21)
[2021-01-02] MEDS: Vitamin B Complex/Vit C/Vit E 1 EACH TABLET PO SCH (08:21)
[2021-01-02] MEDS: Thiamine (B-1) 100 MG TABLET PO SCH (08:21)
[2021-01-02] MEDS: QUEtiapine Fumarate 25 MG TABLET PO SCH ×2 (08:21→20:41)
[2021-01-02] MEDS: *HR* LORazepam 2 MG/ML VIAL IVP PRN ×2 (12:18→21:24)
[2021-01-02] MEDS: traZODone 50 MG TABLET PO SCH (20:41)
[2021-01-02] MEDS ORDERED: *HR* Metoprolol 5 MG/5 ML VIAL IVP ONE ×2 (22:09→22:43)
[2021-01-03] MEDS: Ipratropium/Albuterol Neb 3 ML IH SCH ×6 (03:59→23:17)
[2021-01-03 04:30] LABS: ABG Base Excess 15 mEq/L (-2 to 3); ABG HCO3 46 mEq/L (21-27); ABG Oxygen Saturation 95 % (95-98); ABG PCO2 95 mmHg (35-45); ABG PH 7.29 pH Units (7.32-7.45); ABG PO2 94 mmHg (85-104); ABG TCO2 49 mEq/L (20-26); Blood Gas Modality AVAPS
[2021-01-03] MEDS: *HR* Enoxaparin 40 MG/0.4 ML SYRINGE SQ SCH (05:41)
[2021-01-03] MEDS: Budesonide/Formoterol 160/4.5 1 PUFF INH IH SCH ×2 (07:38→20:04)
[2021-01-03] MEDS: amLODIPine 5 MG TABLET PO SCH (08:13)
[2021-01-03] MEDS: Vitamin B Complex/Vit C/Vit E 1 EACH TABLET PO SCH (08:13)
[2021-01-03] MEDS: Gabapentin 300 MG CAPSULE PO SCH ×3 (08:13→20:25)
[2021-01-03] MEDS: Folic Acid 1 MG TABLET PO SCH (08:13)
[2021-01-03] MEDS: Thiamine (B-1) 100 MG TABLET PO SCH (08:13)
[2021-01-03] MEDS: QUEtiapine Fumarate 25 MG TABLET PO SCH ×2 (08:13→20:25)
[2021-01-03] MEDS: *HR* LORazepam 2 MG/ML VIAL IVP PRN ×2 (08:39→21:50)
[2021-01-03 10:14] LABS: ABG Base Excess 18 mEq/L (-2 to 3); ABG HCO3 49 mEq/L (21-27); ABG Oxygen Saturation 89 % (95-98); ABG PCO2 94 mmHg (35-45); ABG PH 7.32 pH Units (7.32-7.45); ABG PO2 66 mmHg (85-104); ABG TCO2 > 50 mEq/L (20-26); Blood Gas VT 600 cc
[2021-01-03 11:12] LABS: BUN/Creatinine Ratio 36 (6-26); Blood Urea Nitrogen 24 mg/dL (8-23); Calcium 8.6 mg/dL (8.6-10.3); Carbon Dioxide 45 mEq/L (23-29); Chloride 96 mEq/L (98-107); Glucose 109 mg/dL (70-105); Osmolality,Calculated 297 (280-300); Sodium 141 mEq/L (136-145); eGFR For African Americans > 60 (> 60); eGFR For Non-African Americans > 60 (> 60)
[2021-01-03] MEDS ORDERED: 0.9 % Sodium Chloride 500 ML IVC ONE (11:45)
[2021-01-03] MEDS: traZODone 50 MG TABLET PO SCH (20:25)
[2021-01-04] MEDS: Dexmedetomidine HCl 400 MCG/100 ML MLS IVC SCH ×2 (03:17→19:20)
[2021-01-04] MEDS: Ipratropium/Albuterol Neb 3 ML IH SCH ×6 (03:32→20:03)
[2021-01-04] MEDS: *HR* Enoxaparin 40 MG/0.4 ML SYRINGE SQ SCH (06:02)
[2021-01-04] MEDS: Budesonide/Formoterol 160/4.5 1 PUFF INH IH SCH (07:45)
[2021-01-04] MEDS: Vitamin B Complex/Vit C/Vit E 1 EACH TABLET PO SCH (08:41)
[2021-01-04] MEDS: Folic Acid 1 MG TABLET PO SCH (08:41)
[2021-01-04] MEDS: amLODIPine 5 MG TABLET PO SCH (08:41)
[2021-01-04] MEDS: Thiamine (B-1) 100 MG TABLET PO SCH (08:41)
[2021-01-04] MEDS: Gabapentin 300 MG CAPSULE PO SCH ×2 (08:41→15:20)
[2021-01-04] MEDS: QUEtiapine Fumarate 25 MG TABLET PO SCH (08:41)
[2021-01-04 09:38] LABS: Blood Urea Nitrogen 17 mg/dL (8-23); Carbon Dioxide 45 mEq/L (23-29); Chloride 96 mEq/L (98-107); Potassium 3.9 mEq/L (3.5-5.1); Sodium 143 mEq/L (136-145)
[2021-01-04 09:39] LABS: Calcium 8.5 mg/dL (8.6-10.3); Glucose 107 mg/dL (70-105); Osmolality,Calculated 298 (280-300)
[2021-01-04 10:07] LABS: ABG Base Excess 15 mEq/L (-2 to 3); ABG HCO3 44 mEq/L (21-27); ABG Oxygen Saturation 94 % (95-98); ABG PCO2 83 mmHg (35-45); ABG PH 7.34 pH Units (7.32-7.45); ABG PO2 80 mmHg (85-104); ABG TCO2 47 mEq/L (20-26); Blood Gas Modality AVAPS; Blood Gas VT 600 cc
[2021-01-04 10:37] LABS: BUN/Creatinine Ratio 25 (6-26); eGFR For African Americans > 60 (> 60); eGFR For Non-African Americans > 60 (> 60)
[2021-01-04 16:12] VITALS: PULSE 143; TEMP 98.9
[2021-01-04] MEDS: *HR* LORazepam 2 MG/ML VIAL IVP PRN (17:37)
[2021-01-04 20:06] VITALS: BP 156/88; O2SAT 95
== END 2021-01-04 20:30 | disposition short-term general hospital (02) | DRG 189 ==
LOC: EMEROOARM 07:03 → 3BNU 07:03 → ICNU 09:15 → SUATTDRO 10:23 → ICNU 10:25 → 2NNU 15:36 → ICNU 12-22 10:16 → 2NNU 12-28 17:20
PROVIDERS: ADMIT Pharmacist; ATTEND Family Medicine

== ENCOUNTER 2021-01-11 13:05 | Inpatient (IN) ==
[2021-01-11] MEDS ORDERED: Albuterol 2.5 MG/3 ML NEBULIZER ONE (13:10)
[2021-01-11] MEDS ORDERED: MethylPREDNISolone 40 MG/ML VIAL ONE (13:11)
[2021-01-11] MEDS ORDERED: Ipratropium/Albuterol Neb 3 ML ONE (13:11)
[2021-01-11] MEDS ORDERED: Ipratropium/Albuterol Neb 3 ML IH ONE (13:12)
[2021-01-11] MEDS ORDERED: methylPREDNISolone 125 MG/2 ML VIAL IVP ONE (13:12)
[2021-01-11] MEDS ORDERED: 0.9 % Sodium Chloride 250 ML IV ONE (13:27)
[2021-01-11] MEDS ORDERED: 0.9 % Sodium Chloride 250 ML ONE (13:27)
[2021-01-11] MEDS ORDERED: Norepinephrine 4 MG/254 ML IV.SOLN IVC SCH (13:30)
[2021-01-11 13:38] LABS: Bacteria,Urine Few per hpf (None-Few); Bilirubin,Urine Negative (Negative); Blood,Urine Small (Negative); Clarity,Urine Turbid (Clear); Color,Urine Yellow (Yellow); Glucose,Urine (UA) Normal (Normal); Ketones,Urine Negative (Negative); Leukocyte Esterase,Urine Trace (Negative); Mucus,Urine Few per lpf (None-Few); Nitrite,Urine Negative (Negative); Protein,Urine 50 mg/dL (Neg-Trace); Specific Gravity,Urine 1.021 (1.010-1.025); Squamous Epithelial Cell,Urine Few per hpf (None-Few); Urobilinogen,Urine Normal (Normal)
[2021-01-11 13:40] LABS: Hematocrit 37.3 % (37.5-50.1); Hemoglobin 11.6 g/dL (12.9-16.9); Mean Corpuscular HGB Conc 31.1 g/dL (31.6-35.5); Mean Corpuscular Hemoglobin 32.5 pg (28.0-33.3); Mean Corpuscular Volume 104.5 fL (83.0-100.0); Mean Platelet Volume 9.1 fL (9.4-12.4); Platelet Count 264 K/mcL (140-400); Red Blood Count 3.57 M/mcL (4.19-5.50); Red Cell Distribution Width 14.5 % (11.5-14.5); White Blood Count 29.9 K/mcL (4.3-11.1)
[2021-01-11] MEDS ORDERED: Piperacillin/Tazobactam 3.375 GM in Water for inj. (sterile) 20 ML IVP ONE (13:41)
[2021-01-11 13:42] LABS: VBG HCO3 40 mEq/L (21-27); VBG PCO2 88 mmHg (41-51); VBG PH 7.27 pH Units (7.32-7.42); VBG PO2 49 mmHg (25-50)
[2021-01-11 13:48] LABS: INR 1.3; Prothrombin Time 14.7 Seconds (9.4-12.1)
[2021-01-11 13:51] LABS: Activated Partial Thrombo Time 31.1 Seconds (26.0-36.0)
[2021-01-11 13:58] LABS: Lymphocytes # 0.6 K/mcL (0.6-4.6); Monocytes # 1.2 K/mcL (0.0-1.3); Neutrophils # 28.1 K/mcL (1.6-8.9); Platelet Estimate Normal (Normal)
[2021-01-11 13:59] LABS: Anisocytosis 1+ (Not Present); Calcium 8.9 mg/dL (8.6-10.3); Potassium 5.8 mEq/L (3.5-5.1)
[2021-01-11 14:04] LABS: Troponin I 0.19 ng/mL (< 0.04)
[2021-01-11] MEDS ORDERED: *HR* LORazepam 2 MG/ML VIAL IVP ONE ×2 (14:40→15:00)
[2021-01-11] MEDS: Ringers Solution, Lactated 500 ML IVC SCH ×4 (14:54→23:52)
[2021-01-11] MEDS ORDERED: 0.9 % Sodium Chloride 1,000 ML ONE (15:09)
[2021-01-11] MEDS ORDERED: *HR* Dextrose 50 % in Water (Vial) 50 ML VIAL IVP ONE (16:45)
[2021-01-11] MEDS ORDERED: Insulin Human Regular 10 UNIT in 0.9 % Sodium Chloride 10 ML IV ONE (16:45)
[2021-01-11] MEDS ORDERED: Ondansetron 4 MG/2 ML VIAL IVP PRN (16:47)
[2021-01-11] MEDS ORDERED: Naloxone 0.4 MG/ML INJ IVP PRN (16:47)
[2021-01-11] MEDS ORDERED: Vancomycin (wt based) 1,000 MG VIAL IVPB SCH (17:00)
[2021-01-11] MEDS: 0.9 % Sodium Chloride 1,000 ML IVC SCH ×2 (17:11→18:02)
[2021-01-11] MEDS: SODIUM ZIRCONIUM CYCLOSILICATE 5 GM POWD.PACK PO SCH (17:13)
[2021-01-11] MEDS: Azithromycin 500 MG in 0.9 % Sodium Chloride 250 ML IVPB SCH (17:22)
[2021-01-11] MEDS: Calcium Gluconate 1gm/50mL 1 GM/50 ML BAG IVPB SCH ×2 (17:22→18:53)
[2021-01-11] MEDS: Ipratropium/Albuterol Neb 3 ML IH SCH ×2 (17:43→20:20)
[2021-01-11] MEDS ORDERED: Vancomycin 1 EACH in 0.9 % Sodium Chloride 250 ML IVPB PRN (18:00)
[2021-01-11 18:30] LABS: Adenovirus Not Detected (Not Detect); Coronavirus 229E Not Detected (Not Detect); Coronavirus HKU1 Not Detected (Not Detect); Coronavirus NL63 Not Detected (Not Detect); Coronavirus OC43 Not Detected (Not Detect); Human Metapneumovirus Not Detected (Not Detect); Human Rhinovirus/Enterovirus Not Detected (Not Detect); SARS-CoV-2 Not Detected (Not Detect)
[2021-01-11 18:31] LABS: Bordetella Pertussis Not Detected (Not Detect); Chlamydophila pneumoniae Not Detected (Not Detect); Influenza A Subtype 2009 H1 Not Detected (Not Detect); Influenza B Not Detected (Not Detect); Mycoplasma pneumoniae Not Detected (Not Detect); Parainfluenza Virus 1 Not Detected (Not Detect); Parainfluenza Virus 2 Not Detected (Not Detect); Parainfluenza Virus 3 Not Detected (Not Detect); Parainfluenza Virus 4 Not Detected (Not Detect); Respiratory Syncytial Virus Not Detected (Not Detect)
[2021-01-11 18:46] LABS: Albumin 2.8 g/dL (3.5-5.7); Albumin/Globulin Ratio 1.3 (1.1-2.2); Bilirubin,Direct 0.1 mg/dL (0.0-0.2); Bilirubin,Indirect 0.5 mg/dL (0.0-1.0); Bilirubin,Total 0.6 mg/dL (0.3-1.0); Globulin 2.2 g/dL (2.4-3.5)
[2021-01-11 18:47] LABS: Magnesium 1.6 mg/dL (1.6-2.6); Phosphorous 5.3 mg/dL (2.7-4.5)
[2021-01-11] MEDS: *HR* Heparin 5,000 UNIT/ML VIAL SQ SCH (21:36)
[2021-01-11] MEDS: Piperacillin/Tazobactam 3.375 GM in 0.9 % Sodium Chloride Mini Bag 100 ML IVPB SCH (23:41)
[2021-01-12] MEDS: Ipratropium/Albuterol Neb 3 ML IH SCH ×7 (00:13→23:05)
[2021-01-12] MEDS: Dexmedetomidine HCl 400 MCG/100 ML MLS IVC SCH ×3 (01:40→11:04)
[2021-01-12] MEDS ORDERED: Dexmedetomidine HCl 400 MCG/100 ML MLS IVC ONE (01:40)
[2021-01-12] MEDS: Ringers Solution, Lactated 500 ML IVC SCH ×2 (02:54→10:51)
[2021-01-12] MEDS: *HR* Heparin 5,000 UNIT/ML VIAL SQ SCH ×3 (05:10→23:31)
[2021-01-12] MEDS: MethylPREDNISolone 40 MG/ML VIAL IVP SCH ×2 (05:10→17:58)
[2021-01-12 05:30] LABS: Hematocrit 28.1 % (37.5-50.1); Hemoglobin 8.9 g/dL (12.9-16.9); Lymphocytes # 0.4 K/mcL (0.6-4.6); Lymphocytes % 1.8 %; Mean Corpuscular HGB Conc 31.7 g/dL (31.6-35.5); Mean Corpuscular Hemoglobin 31.8 pg (28.0-33.3); Mean Corpuscular Volume 100.4 fL (83.0-100.0); Monocytes # 0.8 K/mcL (0.0-1.3); Monocytes % 3.7 %; Neutrophils # 19.8 K/mcL (1.6-8.9); Platelet Count 194 K/mcL (140-400); Red Cell Distribution Width 14.1 % (11.5-14.5); Segmented Neutrophils % 93.5 %; White Blood Count 21.2 K/mcL (4.3-11.1)
[2021-01-12 05:31] LABS: VBG Ionized Calcium 1.12 mmol/L (1.15-1.35)
[2021-01-12 05:50] LABS: Calcium 7.9 mg/dL (8.6-10.3); Magnesium 1.6 mg/dL (1.6-2.6); Phosphorous 4.6 mg/dL (2.7-4.5); Potassium 5.1 mEq/L (3.5-5.1)
[2021-01-12 06:32] LABS: Acinetobacter baumannii by PCR Not Detected (Not Detect); Candida albicans by PCR Not Detected (Not Detect); Candida glabrata by PCR Not Detected (Not Detect); Candida krusei by PCR Not Detected (Not Detect); Candida parapsilosis by PCR Not Detected (Not Detect); Candida tropicalis by PCR Not Detected (Not Detect); Enterobacter cloacae Cmplx PCR Not Detected (Not Detect); Enterobacteriaceae by PCR Not Detected (Not Detect); Enterococcus by PCR Not Detected (Not Detect); Escherichia coli by PCR Not Detected (Not Detect); Klebsiella oxytoca by PCR Not Detected (Not Detect); Klebsiella pneumoniae by PCR Not Detected (Not Detect); Proteus by PCR Not Detected (Not Detect); Pseudomonas aeruginosa by PCR Not Detected (Not Detect); Staphylococcus aureus by PCR Not Detected (Not Detect); Staphylococcus by PCR Not Detected (Not Detect); Streptococcus agalactiae(B)PCR Not Detected (Not Detect); Streptococcus by PCR Not Detected (Not Detect); Streptococcus pneumoniae PCR Not Detected (Not Detect); Streptococcus pyogenes (A) PCR Not Detected (Not Detect)
[2021-01-12 06:33] LABS: Serratia marcescens by PCR DETECTED (Not Detect)
[2021-01-12] MEDS: Piperacillin/Tazobactam 3.375 GM in 0.9 % Sodium Chloride Mini Bag 100 ML IVPB SCH ×3 (08:09→23:31)
[2021-01-12] MEDS: SODIUM ZIRCONIUM CYCLOSILICATE 5 GM POWD.PACK PO SCH (08:12)
[2021-01-12] MEDS: *HR* LORazepam 2 MG/ML VIAL IVP PRN ×3 (09:06→23:37)
[2021-01-12] MEDS: Azithromycin 500 MG in 0.9 % Sodium Chloride 250 ML IVPB SCH (17:07)
[2021-01-12] MEDS: Budesonide/Formoterol 160/4.5 1 PUFF INH IH SCH (20:00)
[2021-01-13] MEDS: Dexmedetomidine HCl 400 MCG/100 ML MLS IVC SCH ×3 (01:45→19:23)
[2021-01-13] MEDS: Ipratropium/Albuterol Neb 3 ML IH SCH ×6 (03:33→23:44)
[2021-01-13] MEDS: *HR* LORazepam 2 MG/ML VIAL IVP PRN ×4 (03:40→19:43)
[2021-01-13] MEDS: MethylPREDNISolone 40 MG/ML VIAL IVP SCH ×2 (05:29→17:28)
[2021-01-13] MEDS: *HR* Heparin 5,000 UNIT/ML VIAL SQ SCH ×3 (05:30→23:30)
[2021-01-13] MEDS: Budesonide/Formoterol 160/4.5 1 PUFF INH IH SCH ×2 (07:49→20:07)
[2021-01-13] MEDS: Piperacillin/Tazobactam 3.375 GM in 0.9 % Sodium Chloride Mini Bag 100 ML IVPB SCH ×2 (08:34→16:23)
[2021-01-13] MEDS: SODIUM ZIRCONIUM CYCLOSILICATE 5 GM POWD.PACK PO SCH (08:34)
[2021-01-13 09:53] LABS: Basophils % 0.1 %; Hematocrit 29.9 % (37.5-50.1); Hemoglobin 9.8 g/dL (12.9-16.9); Immature Granulocytes % 0.5 % (0-4); Lymphocytes # 0.1 K/mcL (0.6-4.6); Lymphocytes % 0.9 %; Mean Corpuscular HGB Conc 32.8 g/dL (31.6-35.5); Mean Corpuscular Hemoglobin 31.7 pg (28.0-33.3); Mean Corpuscular Volume 96.8 fL (83.0-100.0); Mean Platelet Volume 9.2 fL (9.4-12.4); Monocytes # 0.2 K/mcL (0.0-1.3); Monocytes % 1.1 %; Platelet Count 179 K/mcL (140-400); Red Blood Count 3.09 M/mcL (4.19-5.50); Red Cell Distribution Width 13.8 % (11.5-14.5); Segmented Neutrophils % 97.4 %; White Blood Count 13.5 K/mcL (4.3-11.1)
[2021-01-13 09:57] LABS: Neutrophils # 13.2 K/mcL (1.6-8.9)
[2021-01-13 09:58] LABS: BUN/Creatinine Ratio 37 (6-26); Blood Urea Nitrogen 33 mg/dL (8-23); Calcium 8.2 mg/dL (8.6-10.3); Carbon Dioxide 35 mEq/L (23-29); Chloride 98 mEq/L (98-107); Glucose 162 mg/dL (70-105); Osmolality,Calculated 297 (280-300); Potassium 3.7 mEq/L (3.5-5.1); Sodium 138 mEq/L (136-145); eGFR For African Americans > 60 (> 60); eGFR For Non-African Americans > 60 (> 60)
[2021-01-13 10:19] LABS: Platelet Estimate Normal (Normal)
[2021-01-13] MEDS ORDERED: *HR* Labetalol 20 MG/4 ML SYRINGE IVP PRN (11:37)
[2021-01-13] MEDS ORDERED: *HR* LORazepam 2 MG/ML VIAL IVP ONE (12:44)
[2021-01-13] MEDS: traZODone 50 MG TABLET PO SCH ×2 (14:28→19:37)
[2021-01-13] MEDS: Gabapentin 300 MG CAPSULE PO SCH ×2 (14:29→19:37)
[2021-01-13] MEDS ORDERED: OLANZapine 10 MG VIAL IM ONE (15:00)
[2021-01-13] MEDS: Azithromycin 500 MG in 0.9 % Sodium Chloride 250 ML IVPB SCH (16:23)
[2021-01-14] MEDS: Piperacillin/Tazobactam 3.375 GM in 0.9 % Sodium Chloride Mini Bag 100 ML IVPB SCH ×4 (00:02→23:33)
[2021-01-14] MEDS: Dexmedetomidine HCl 400 MCG/100 ML MLS IVC SCH ×3 (00:12→23:33)
[2021-01-14] MEDS: Ipratropium/Albuterol Neb 3 ML IH SCH ×6 (03:25→23:33)
[2021-01-14] MEDS: *HR* LORazepam 2 MG/ML VIAL IVP PRN ×2 (04:30→22:29)
[2021-01-14 05:41] LABS: Hematocrit 32.7 % (37.5-50.1); Hemoglobin 10.9 g/dL (12.9-16.9); Immature Granulocytes % 0.7 % (0-4); Lymphocytes # 0.2 K/mcL (0.6-4.6); Lymphocytes % 1.7 %; Mean Corpuscular HGB Conc 33.3 g/dL (31.6-35.5); Mean Corpuscular Hemoglobin 32.2 pg (28.0-33.3); Mean Corpuscular Volume 96.7 fL (83.0-100.0); Mean Platelet Volume 9.4 fL (9.4-12.4); Monocytes # 0.3 K/mcL (0.0-1.3); Monocytes % 3.1 %; Neutrophils # 9.7 K/mcL (1.6-8.9); Platelet Count 210 K/mcL (140-400); Red Blood Count 3.38 M/mcL (4.19-5.50); Red Cell Distribution Width 13.6 % (11.5-14.5); Segmented Neutrophils % 94.5 %; White Blood Count 10.3 K/mcL (4.3-11.1)
[2021-01-14] MEDS: *HR* Heparin 5,000 UNIT/ML VIAL SQ SCH ×3 (05:43→21:16)
[2021-01-14] MEDS: MethylPREDNISolone 40 MG/ML VIAL IVP SCH ×2 (05:43→18:06)
[2021-01-14 06:08] LABS: BUN/Creatinine Ratio 24 (6-26); Blood Urea Nitrogen 21 mg/dL (8-23); Calcium 8.7 mg/dL (8.6-10.3); Carbon Dioxide 32 mEq/L (23-29); Chloride 98 mEq/L (98-107); Glucose 121 mg/dL (70-105); Osmolality,Calculated 292 (280-300); Potassium 3.5 mEq/L (3.5-5.1); Sodium 139 mEq/L (136-145); eGFR For African Americans > 60 (> 60); eGFR For Non-African Americans > 60 (> 60)
[2021-01-14 06:18] LABS: Platelet Estimate Normal (Normal)
[2021-01-14] MEDS: Budesonide/Formoterol 160/4.5 1 PUFF INH IH SCH ×2 (07:24→19:55)
[2021-01-14] MEDS: Gabapentin 300 MG CAPSULE PO SCH ×3 (08:01→21:16)
[2021-01-14] MEDS: SODIUM ZIRCONIUM CYCLOSILICATE 5 GM POWD.PACK PO SCH (10:22)
[2021-01-14] MEDS: Azithromycin 500 MG in 0.9 % Sodium Chloride 250 ML IVPB SCH (16:18)
[2021-01-14] MEDS: traZODone 50 MG TABLET PO SCH (21:16)
[2021-01-15] MEDS: Ipratropium/Albuterol Neb 3 ML IH SCH ×6 (03:49→23:51)
[2021-01-15 03:50] LABS: Basophils % 0.1 %; Hematocrit 32.6 % (37.5-50.1); Hemoglobin 10.5 g/dL (12.9-16.9); Immature Granulocytes % 0.6 % (0-4); Lymphocytes # 0.2 K/mcL (0.6-4.6); Mean Corpuscular HGB Conc 32.2 g/dL (31.6-35.5); Mean Corpuscular Hemoglobin 31.3 pg (28.0-33.3); Mean Corpuscular Volume 97.3 fL (83.0-100.0); Mean Platelet Volume 9.2 fL (9.4-12.4); Monocytes # 0.4 K/mcL (0.0-1.3); Monocytes % 3.8 %; Neutrophils # 10.3 K/mcL (1.6-8.9); Platelet Count 187 K/mcL (140-400); Red Blood Count 3.35 M/mcL (4.19-5.50); Red Cell Distribution Width 13.6 % (11.5-14.5); Segmented Neutrophils % 93.5 %
[2021-01-15 04:09] LABS: BUN/Creatinine Ratio 26 (6-26); Blood Urea Nitrogen 22 mg/dL (8-23); Calcium 8.6 mg/dL (8.6-10.3); Carbon Dioxide 35 mEq/L (23-29); Chloride 101 mEq/L (98-107); Glucose 142 mg/dL (70-105); Osmolality,Calculated 296 (280-300); Potassium 3.8 mEq/L (3.5-5.1); Sodium 140 mEq/L (136-145); eGFR For African Americans > 60 (> 60); eGFR For Non-African Americans > 60 (> 60)
[2021-01-15] MEDS: Dexmedetomidine HCl 400 MCG/100 ML MLS IVC SCH ×2 (05:49→14:32)
[2021-01-15] MEDS: MethylPREDNISolone 40 MG/ML VIAL IVP SCH (05:52)
[2021-01-15] MEDS: *HR* Heparin 5,000 UNIT/ML VIAL SQ SCH ×3 (05:52→23:30)
[2021-01-15] MEDS: Budesonide/Formoterol 160/4.5 1 PUFF INH IH SCH ×2 (07:31→20:04)
[2021-01-15] MEDS: Piperacillin/Tazobactam 3.375 GM in 0.9 % Sodium Chloride Mini Bag 100 ML IVPB SCH ×3 (08:46→23:31)
[2021-01-15] MEDS: Gabapentin 300 MG CAPSULE PO SCH ×3 (09:00→19:24)
[2021-01-15] MEDS ORDERED: predniSONE 20 MG TABLET PO SCH (11:00)
[2021-01-15] MEDS: Ringers Solution, Lactated 500 ML IVC SCH (13:16)
[2021-01-15] MEDS: Azithromycin 500 MG in 0.9 % Sodium Chloride 250 ML IVPB SCH (17:55)
[2021-01-15] MEDS: traZODone 50 MG TABLET PO SCH (19:24)
[2021-01-16] MEDS: Dexmedetomidine HCl 400 MCG/100 ML MLS IVC SCH (01:05)
[2021-01-16] MEDS: Ipratropium/Albuterol Neb 3 ML IH SCH ×6 (03:33→23:50)
[2021-01-16 04:18] LABS: Basophils % 0.3 %; Hematocrit 36.3 % (37.5-50.1); Hemoglobin 11.6 g/dL (12.9-16.9); Immature Granulocytes % 1.5 % (0-4); Lymphocytes # 0.5 K/mcL (0.6-4.6); Lymphocytes % 4.6 %; Mean Corpuscular Hemoglobin 31.3 pg (28.0-33.3); Mean Corpuscular Volume 97.8 fL (83.0-100.0); Monocytes # 0.8 K/mcL (0.0-1.3); Monocytes % 7.2 %; Neutrophils # 9.1 K/mcL (1.6-8.9); Platelet Count 203 K/mcL (140-400); Red Blood Count 3.71 M/mcL (4.19-5.50); Red Cell Distribution Width 13.6 % (11.5-14.5); Segmented Neutrophils % 86.4 %; White Blood Count 10.5 K/mcL (4.3-11.1)
[2021-01-16 04:35] LABS: BUN/Creatinine Ratio 21 (6-26); Blood Urea Nitrogen 23 mg/dL (8-23); Calcium 8.9 mg/dL (8.6-10.3); Carbon Dioxide 35 mEq/L (23-29); Chloride 99 mEq/L (98-107); Glucose 135 mg/dL (70-105); Osmolality,Calculated 294 (280-300); Potassium 3.6 mEq/L (3.5-5.1); Sodium 139 mEq/L (136-145); eGFR For African Americans > 60 (> 60); eGFR For Non-African Americans > 60 (> 60)
[2021-01-16] MEDS: *HR* Heparin 5,000 UNIT/ML VIAL SQ SCH ×3 (05:16→21:01)
[2021-01-16] MEDS: Budesonide/Formoterol 160/4.5 1 PUFF INH IH SCH ×2 (07:37→20:01)
[2021-01-16] MEDS: Gabapentin 300 MG CAPSULE PO SCH ×3 (09:31→21:01)
[2021-01-16] MEDS: predniSONE 20 MG TABLET PO SCH (09:32)
[2021-01-16] MEDS: Piperacillin/Tazobactam 3.375 GM in 0.9 % Sodium Chloride Mini Bag 100 ML IVPB SCH ×3 (09:33→23:15)
[2021-01-16] MEDS ORDERED: *HR* Metoprolol 5 MG/5 ML VIAL IVP ONE ×2 (12:40→23:12)
[2021-01-16] MEDS ORDERED: Isovue-370 500 ML BOTTLE IVP ONE (12:41)
[2021-01-16] MEDS: Metoprolol XL (24 HR) Succ 50 MG TAB.ER.24H PO SCH ×2 (12:48→22:37)
[2021-01-16] MEDS: *HR* Metoprolol 5 MG/5 ML VIAL IVP PRN ×2 (15:16→22:01)
[2021-01-16] MEDS: traZODone 50 MG TABLET PO SCH (21:01)
[2021-01-16] MEDS ORDERED: Magnesium Sulfate 1 GM/102 ML PIGGYBACK IVPB ONE (23:32)
[2021-01-17] MEDS ORDERED: *HR* Heparin 5,000 UNIT/ML VIAL IVP PRN (00:37)
[2021-01-17] MEDS: DilTIAZem 50 MG/50 ML IV.SOLN IVC SCH ×7 (00:50→23:35)
[2021-01-17 01:25] LABS: Hematocrit 29.6 % (37.5-50.1); Hemoglobin 9.4 g/dL (12.9-16.9); Mean Corpuscular HGB Conc 31.8 g/dL (31.6-35.5); Mean Corpuscular Hemoglobin 31.8 pg (28.0-33.3); Mean Platelet Volume 9.4 fL (9.4-12.4); Platelet Count 241 K/mcL (140-400); Red Blood Count 2.96 M/mcL (4.19-5.50); Red Cell Distribution Width 13.6 % (11.5-14.5); White Blood Count 18.3 K/mcL (4.3-11.1)
[2021-01-17] MEDS: Heparin 25,000UNIT/250ML 1/2NS 25,000 UNIT/250 ML IV.SOLN IVC SCH (01:26)
[2021-01-17 01:30] LABS: Heparin anti-factor XA UFH 0.07 IU/mL (0.30-0.70); INR 1.1; Prothrombin Time 12.2 Seconds (9.4-12.1)
[2021-01-17 01:33] LABS: Activated Partial Thrombo Time 30.5 Seconds (26.0-36.0)
[2021-01-17] MEDS: Ipratropium/Albuterol Neb 3 ML IH SCH ×6 (04:06→23:01)
[2021-01-17] MEDS: Budesonide/Formoterol 160/4.5 1 PUFF INH IH SCH ×2 (07:18→19:57)
[2021-01-17] MEDS: Gabapentin 300 MG CAPSULE PO SCH ×3 (07:55→21:09)
[2021-01-17] MEDS: predniSONE 20 MG TABLET PO SCH (07:55)
[2021-01-17] MEDS: Piperacillin/Tazobactam 3.375 GM in 0.9 % Sodium Chloride Mini Bag 100 ML IVPB SCH ×2 (07:56→16:25)
[2021-01-17] MEDS: *HR* Heparin 5,000 UNIT/ML VIAL IVP PRN ×2 (10:23→18:27)
[2021-01-17] MEDS: Metoprolol XL (24 HR) Succ 50 MG TAB.ER.24H PO SCH (10:23)
[2021-01-17 13:32] LABS: Alanine Aminotransferase 24 Units/L (7-52); Albumin 3.2 g/dL (3.5-5.7); Albumin/Globulin Ratio 1.1 (1.1-2.2); Alkaline Phosphatase 63 Units/L (34-104); Aspartate Amino Transferase 12 Units/L (13-39); BUN/Creatinine Ratio 19 (6-26); Bilirubin,Total 0.5 mg/dL (0.3-1.0); Blood Urea Nitrogen 19 mg/dL (8-23); Calcium 8.6 mg/dL (8.6-10.3); Carbon Dioxide 34 mEq/L (23-29); Chloride 101 mEq/L (98-107); Globulin 2.8 g/dL (2.4-3.5); Glucose 205 mg/dL (70-105); Osmolality,Calculated 296 (280-300); Potassium 4.5 mEq/L (3.5-5.1); Sodium 139 mEq/L (136-145); eGFR For African Americans > 60 (> 60); eGFR For Non-African Americans > 60 (> 60)
[2021-01-17 13:41] LABS: Troponin I 0.04 ng/mL (< 0.04)
[2021-01-17] MEDS ORDERED: Metoprolol XL (24 HR) Succ 50 MG TAB.ER.24H PO ONE (16:12)
[2021-01-17] MEDS: traZODone 50 MG TABLET PO SCH (21:09)
[2021-01-18] MEDS: Piperacillin/Tazobactam 3.375 GM in 0.9 % Sodium Chloride Mini Bag 100 ML IVPB SCH ×3 (00:15→15:48)
[2021-01-18] MEDS: *HR* LORazepam 2 MG/ML VIAL IVP PRN (00:33)
[2021-01-18] MEDS: Heparin 25,000UNIT/250ML 1/2NS 25,000 UNIT/250 ML IV.SOLN IVC SCH (01:54)
[2021-01-18] MEDS: Ipratropium/Albuterol Neb 3 ML IH SCH ×3 (04:22→11:47)
[2021-01-18] MEDS: DilTIAZem 50 MG/50 ML IV.SOLN IVC SCH (06:00)
[2021-01-18 06:19] LABS: Hematocrit 32.3 % (37.5-50.1); Hemoglobin 10.1 g/dL (12.9-16.9); Mean Corpuscular HGB Conc 31.3 g/dL (31.6-35.5); Mean Corpuscular Hemoglobin 31.5 pg (28.0-33.3); Mean Corpuscular Volume 100.6 fL (83.0-100.0); Mean Platelet Volume 8.8 fL (9.4-12.4); Platelet Count 204 K/mcL (140-400); Red Blood Count 3.21 M/mcL (4.19-5.50); Red Cell Distribution Width 13.8 % (11.5-14.5)
[2021-01-18 06:37] LABS: BUN/Creatinine Ratio 25 (6-26); Blood Urea Nitrogen 22 mg/dL (8-23); Calcium 8.4 mg/dL (8.6-10.3); Carbon Dioxide 38 mEq/L (23-29); Chloride 102 mEq/L (98-107); Glucose 96 mg/dL (70-105); Osmolality,Calculated 293 (280-300); Sodium 140 mEq/L (136-145); eGFR For African Americans > 60 (> 60); eGFR For Non-African Americans > 60 (> 60)
[2021-01-18] MEDS: *HR* Heparin 5,000 UNIT/ML VIAL IVP PRN (06:54)
[2021-01-18] MEDS: Budesonide/Formoterol 160/4.5 1 PUFF INH IH SCH ×2 (07:36→19:36)
[2021-01-18] MEDS ORDERED: (Roflumilast [Daliresp] 500 MCG Tablet) PO SCH (09:00)
[2021-01-18] MEDS ORDERED: Metoprolol XL (24 HR) Succ 50 MG TAB.ER.24H PO SCH (09:00)
[2021-01-18] MEDS ORDERED: *HR* Midazolam HCl 5 MG/5 ML VIAL IVP ONE (09:42)
[2021-01-18] MEDS: Cholecalciferol (D-3) 1,000 UNIT (25MCG) TABLET PO SCH (09:55)
[2021-01-18] MEDS: Ascorbic Acid 500 MG TABLET PO SCH (09:55)
[2021-01-18] MEDS: predniSONE 20 MG TABLET PO SCH (09:55)
[2021-01-18] MEDS: amLODIPine 5 MG TABLET PO SCH (09:56)
[2021-01-18] MEDS: Gabapentin 300 MG CAPSULE PO SCH ×3 (09:56→21:46)
[2021-01-18] MEDS: Metoprolol XL (24 HR) Succ 50 MG TAB.ER.24H PO SCH (09:56)
[2021-01-18] MEDS: *HR* Metoprolol 5 MG/5 ML VIAL IVP PRN (12:28)
[2021-01-18] MEDS: Apixaban 5 MG TABLET PO SCH ×2 (12:28→21:46)
[2021-01-18 15:52] LABS: ABG Base Excess 6 mEq/L (-2 to 3); ABG HCO3 34 mEq/L (21-27); ABG Oxygen Saturation 95 % (95-98); ABG PCO2 67 mmHg (35-45); ABG PH 7.32 pH Units (7.32-7.45); ABG PO2 86 mmHg (85-104); ABG TCO2 36 mEq/L (20-26)
[2021-01-18] MEDS: Ipratropium Neb 0.5 MG NEBULIZER IH SCH ×3 (15:53→23:31)
[2021-01-18] MEDS: Levalbuterol Neb 1.25 MG/3 ML IH SCH ×2 (15:53→23:31)
[2021-01-18] MEDS: traZODone 50 MG TABLET PO SCH (21:46)
[2021-01-19] MEDS: Piperacillin/Tazobactam 3.375 GM in 0.9 % Sodium Chloride Mini Bag 100 ML IVPB SCH (00:09)
[2021-01-19 01:08] LABS: Hematocrit 35.2 % (37.5-50.1); Hemoglobin 11.1 g/dL (12.9-16.9); Mean Corpuscular HGB Conc 31.5 g/dL (31.6-35.5); Mean Corpuscular Hemoglobin 31.4 pg (28.0-33.3); Mean Corpuscular Volume 99.7 fL (83.0-100.0); Mean Platelet Volume 9.3 fL (9.4-12.4); Platelet Count 234 K/mcL (140-400); Red Blood Count 3.53 M/mcL (4.19-5.50); Red Cell Distribution Width 14.1 % (11.5-14.5); White Blood Count 10.3 K/mcL (4.3-11.1)
[2021-01-19 01:29] LABS: BUN/Creatinine Ratio 26 (6-26); Blood Urea Nitrogen 22 mg/dL (8-23); Calcium 8.5 mg/dL (8.6-10.3); Carbon Dioxide 35 mEq/L (23-29); Chloride 101 mEq/L (98-107); Glucose 175 mg/dL (70-105); Osmolality,Calculated 298 (280-300); Potassium 4.1 mEq/L (3.5-5.1); Sodium 140 mEq/L (136-145); eGFR For African Americans > 60 (> 60); eGFR For Non-African Americans > 60 (> 60)
[2021-01-19] MEDS: Levalbuterol Neb 1.25 MG/3 ML IH SCH ×2 (03:41→07:34)
[2021-01-19] MEDS: Ipratropium Neb 0.5 MG NEBULIZER IH SCH ×2 (03:41→07:34)
[2021-01-19] MEDS: Ascorbic Acid 500 MG TABLET PO SCH (07:24)
[2021-01-19] MEDS: Cholecalciferol (D-3) 1,000 UNIT (25MCG) TABLET PO SCH (07:25)
[2021-01-19] MEDS: Metoprolol XL (24 HR) Succ 50 MG TAB.ER.24H PO SCH (07:25)
[2021-01-19] MEDS: Apixaban 5 MG TABLET PO SCH ×2 (07:26→23:16)
[2021-01-19] MEDS: Aspirin 81 MG TAB.CHEW PO SCH (07:26)
[2021-01-19] MEDS: Gabapentin 300 MG CAPSULE PO SCH ×3 (07:26→23:16)
[2021-01-19] MEDS: amLODIPine 5 MG TABLET PO SCH (07:26)
[2021-01-19] MEDS: Budesonide/Formoterol 160/4.5 1 PUFF INH IH SCH ×2 (07:35→19:30)
[2021-01-19] MEDS ORDERED: Levalbuterol Neb 1.25 MG/3 ML IH PRN (11:38)
[2021-01-19] MEDS ORDERED: Ipratropium Neb 0.5 MG NEBULIZER IH PRN (11:38)
[2021-01-19] MEDS ORDERED: DilTIAZem CD (24hr) 180 MG CAP.ER.24H PO SCH (12:00)
[2021-01-19 19:22] LABS: ABG Base Excess 8 mEq/L (-2 to 3); ABG HCO3 39 mEq/L (21-27); ABG Oxygen Saturation 96 % (95-98); ABG PCO2 102 mmHg (35-45); ABG PH 7.19 pH Units (7.32-7.45); ABG PO2 103 mmHg (85-104); ABG TCO2 43 mEq/L (20-26); Blood Gas Modality AVAPS; Blood Gas VT 500 cc
[2021-01-19 21:18] LABS: ABG Base Excess 10 mEq/L (-2 to 3); ABG HCO3 41 mEq/L (21-27); ABG Oxygen Saturation 88 % (95-98); ABG PCO2 100 mmHg (35-45); ABG PH 7.22 pH Units (7.32-7.45); ABG PO2 69 mmHg (85-104); ABG TCO2 44 mEq/L (20-26); Blood Gas Modality AVAPS; Blood Gas VT 500 cc
[2021-01-19] MEDS: traZODone 50 MG TABLET PO SCH (23:16)
[2021-01-20] MEDS: *HR* LORazepam 2 MG/ML VIAL IVP PRN (02:08)
[2021-01-20] MEDS: Dexmedetomidine HCl 400 MCG/100 ML MLS IVC SCH (03:45)
[2021-01-20 04:48] LABS: ABG Base Excess 12 mEq/L (-2 to 3); ABG HCO3 40 mEq/L (21-27); ABG Oxygen Saturation 92 % (95-98); ABG PCO2 80 mmHg (35-45); ABG PH 7.31 pH Units (7.32-7.45); ABG PO2 73 mmHg (85-104); ABG TCO2 43 mEq/L (20-26); Blood Gas Modality AVAPS; Blood Gas VT 550 cc
[2021-01-20 05:44] LABS: Hematocrit 31.2 % (37.5-50.1); Hemoglobin 9.9 g/dL (12.9-16.9); Mean Corpuscular HGB Conc 31.7 g/dL (31.6-35.5); Mean Corpuscular Hemoglobin 32.1 pg (28.0-33.3); Mean Corpuscular Volume 101.3 fL (83.0-100.0); Mean Platelet Volume 9.2 fL (9.4-12.4); Platelet Count 225 K/mcL (140-400); Red Blood Count 3.08 M/mcL (4.19-5.50); Red Cell Distribution Width 14.4 % (11.5-14.5); White Blood Count 10.3 K/mcL (4.3-11.1)
[2021-01-20 06:12] LABS: BUN/Creatinine Ratio 25 (6-26); Blood Urea Nitrogen 26 mg/dL (8-23); Calcium 8.4 mg/dL (8.6-10.3); Carbon Dioxide 36 mEq/L (23-29); Chloride 99 mEq/L (98-107); Glucose 104 mg/dL (70-105); Osmolality,Calculated 293 (280-300); Potassium 4.1 mEq/L (3.5-5.1); Sodium 139 mEq/L (136-145); eGFR For African Americans > 60 (> 60); eGFR For Non-African Americans > 60 (> 60)
[2021-01-20] MEDS: Aspirin 81 MG TAB.CHEW PO SCH (08:03)
[2021-01-20] MEDS: Cholecalciferol (D-3) 1,000 UNIT (25MCG) TABLET PO SCH (08:03)
[2021-01-20] MEDS: Apixaban 5 MG TABLET PO SCH ×2 (08:03→19:57)
[2021-01-20] MEDS: Gabapentin 300 MG CAPSULE PO SCH ×3 (08:04→19:57)
[2021-01-20] MEDS: Ascorbic Acid 500 MG TABLET PO SCH (08:04)
[2021-01-20] MEDS: Metoprolol XL (24 HR) Succ 50 MG TAB.ER.24H PO SCH (08:48)
[2021-01-20] MEDS ORDERED: DilTIAZem CD (24hr) 120 MG CAP.ER.24H PO SCH (09:00)
[2021-01-20] MEDS: Budesonide/Formoterol 160/4.5 1 PUFF INH IH SCH ×2 (09:32→20:12)
[2021-01-20] MEDS ORDERED: 0.9 % Sodium Chloride 500 ML IVC ONE (11:08)
[2021-01-20] MEDS: Ipratropium Neb 0.5 MG NEBULIZER IH SCH ×3 (12:12→20:09)
[2021-01-20] MEDS: Levalbuterol Neb 1.25 MG/3 ML IH SCH ×3 (12:12→20:09)
[2021-01-20] MEDS: QUEtiapine Fumarate 25 MG TABLET PO SCH ×2 (13:17→19:57)
[2021-01-20 14:11] LABS: ABG Base Excess 9 mEq/L (-2 to 3); ABG HCO3 36 mEq/L (21-27); ABG Oxygen Saturation 92 % (95-98); ABG PCO2 69 mmHg (35-45); ABG PH 7.33 pH Units (7.32-7.45); ABG PO2 70 mmHg (85-104); ABG TCO2 39 mEq/L (20-26)
[2021-01-20] MEDS: traZODone 50 MG TABLET PO SCH (19:57)
[2021-01-21] MEDS: Levalbuterol Neb 1.25 MG/3 ML IH SCH ×7 (00:10→23:08)
[2021-01-21] MEDS: Ipratropium Neb 0.5 MG NEBULIZER IH SCH ×7 (00:10→23:08)
[2021-01-21 05:42] LABS: ABG Base Excess 9 mEq/L (-2 to 3); ABG HCO3 37 mEq/L (21-27); ABG Oxygen Saturation 85 % (95-98); ABG PCO2 69 mmHg (35-45); ABG PH 7.34 pH Units (7.32-7.45); ABG PO2 56 mmHg (85-104); ABG TCO2 39 mEq/L (20-26); Blood Gas Modality AVAPS; Blood Gas VT 500 cc
[2021-01-21 06:57] LABS: Hematocrit 32.6 % (37.5-50.1); Hemoglobin 10.1 g/dL (12.9-16.9); Mean Corpuscular Hemoglobin 31.8 pg (28.0-33.3); Mean Corpuscular Volume 102.5 fL (83.0-100.0); Mean Platelet Volume 9.1 fL (9.4-12.4); Platelet Count 183 K/mcL (140-400); Red Blood Count 3.18 M/mcL (4.19-5.50); Red Cell Distribution Width 14.6 % (11.5-14.5); White Blood Count 8.5 K/mcL (4.3-11.1)
[2021-01-21 07:19] LABS: BUN/Creatinine Ratio 27 (6-26); Blood Urea Nitrogen 22 mg/dL (8-23); Carbon Dioxide 36 mEq/L (23-29); Chloride 100 mEq/L (98-107); Glucose 86 mg/dL (70-105); Osmolality,Calculated 289 (280-300); Potassium 4.1 mEq/L (3.5-5.1); Sodium 138 mEq/L (136-145); eGFR For African Americans > 60 (> 60); eGFR For Non-African Americans > 60 (> 60)
[2021-01-21] MEDS: Budesonide/Formoterol 160/4.5 1 PUFF INH IH SCH ×2 (08:00→20:18)
[2021-01-21] MEDS: Ascorbic Acid 500 MG TABLET PO SCH (08:12)
[2021-01-21] MEDS: Apixaban 5 MG TABLET PO SCH ×2 (08:12→20:32)
[2021-01-21] MEDS: Aspirin 81 MG TAB.CHEW PO SCH (08:12)
[2021-01-21] MEDS: QUEtiapine Fumarate 25 MG TABLET PO SCH ×2 (08:12→20:32)
[2021-01-21] MEDS: Cholecalciferol (D-3) 1,000 UNIT (25MCG) TABLET PO SCH (08:12)
[2021-01-21] MEDS: Metoprolol XL (24 HR) Succ 50 MG TAB.ER.24H PO SCH (08:13)
[2021-01-21] MEDS: Gabapentin 300 MG CAPSULE PO SCH ×4 (08:13→20:31)
[2021-01-21] MEDS: Dexmedetomidine HCl 400 MCG/100 ML MLS IVC SCH (16:40)
[2021-01-21] MEDS: traZODone 50 MG TABLET PO SCH (20:32)
[2021-01-22 01:41] LABS: Hemoglobin 9.1 g/dL (12.9-16.9); Mean Corpuscular HGB Conc 31.4 g/dL (31.6-35.5); Mean Corpuscular Hemoglobin 31.7 pg (28.0-33.3); Platelet Count 195 K/mcL (140-400); Red Blood Count 2.87 M/mcL (4.19-5.50); Red Cell Distribution Width 14.6 % (11.5-14.5); White Blood Count 9.8 K/mcL (4.3-11.1)
[2021-01-22 02:10] LABS: BUN/Creatinine Ratio 24 (6-26); Blood Urea Nitrogen 19 mg/dL (8-23); Calcium 8.2 mg/dL (8.6-10.3); Carbon Dioxide 40 mEq/L (23-29); Chloride 98 mEq/L (98-107); Glucose 143 mg/dL (70-105); Osmolality,Calculated 293 (280-300); Potassium 4.5 mEq/L (3.5-5.1); Sodium 139 mEq/L (136-145); eGFR For African Americans > 60 (> 60); eGFR For Non-African Americans > 60 (> 60)
[2021-01-22] MEDS: Ipratropium Neb 0.5 MG NEBULIZER IH SCH ×6 (03:54→23:06)
[2021-01-22] MEDS: Levalbuterol Neb 1.25 MG/3 ML IH SCH ×6 (03:54→23:06)
[2021-01-22] MEDS: Budesonide/Formoterol 160/4.5 1 PUFF INH IH SCH ×2 (07:27→19:40)
[2021-01-22] MEDS: Apixaban 5 MG TABLET PO SCH ×2 (08:35→21:42)
[2021-01-22] MEDS: Gabapentin 300 MG CAPSULE PO SCH ×3 (08:35→21:42)
[2021-01-22] MEDS: QUEtiapine Fumarate 25 MG TABLET PO SCH ×2 (08:35→21:42)
[2021-01-22] MEDS: Cholecalciferol (D-3) 1,000 UNIT (25MCG) TABLET PO SCH (08:35)
[2021-01-22] MEDS: Aspirin 81 MG TAB.CHEW PO SCH (08:35)
[2021-01-22] MEDS: Dexmedetomidine HCl 400 MCG/100 ML MLS IVC SCH ×2 (08:36→21:40)
[2021-01-22] MEDS: Ascorbic Acid 500 MG TABLET PO SCH (08:36)
[2021-01-22] MEDS: Metoprolol XL (24 HR) Succ 50 MG TAB.ER.24H PO SCH (14:05)
[2021-01-22] MEDS: traZODone 50 MG TABLET PO SCH (21:42)
[2021-01-23 01:11] LABS: Hematocrit 28.2 % (37.5-50.1); Mean Corpuscular HGB Conc 31.9 g/dL (31.6-35.5); Mean Corpuscular Hemoglobin 32.4 pg (28.0-33.3); Mean Corpuscular Volume 101.4 fL (83.0-100.0); Platelet Count 209 K/mcL (140-400); Red Blood Count 2.78 M/mcL (4.19-5.50); Red Cell Distribution Width 14.5 % (11.5-14.5); White Blood Count 10.5 K/mcL (4.3-11.1)
[2021-01-23 01:31] LABS: BUN/Creatinine Ratio 25 (6-26); Blood Urea Nitrogen 17 mg/dL (8-23); Calcium 8.3 mg/dL (8.6-10.3); Carbon Dioxide 39 mEq/L (23-29); Chloride 97 mEq/L (98-107); Glucose 133 mg/dL (70-105); Osmolality,Calculated 289 (280-300); Potassium 4.2 mEq/L (3.5-5.1); Sodium 138 mEq/L (136-145); eGFR For African Americans > 60 (> 60); eGFR For Non-African Americans > 60 (> 60)
[2021-01-23] MEDS: Levalbuterol Neb 1.25 MG/3 ML IH SCH ×6 (04:08→23:27)
[2021-01-23] MEDS: Ipratropium Neb 0.5 MG NEBULIZER IH SCH ×6 (04:08→23:27)
[2021-01-23] MEDS: Budesonide/Formoterol 160/4.5 1 PUFF INH IH SCH ×2 (07:44→20:10)
[2021-01-23] MEDS: Aspirin 81 MG TAB.CHEW PO SCH (08:05)
[2021-01-23] MEDS: Cholecalciferol (D-3) 1,000 UNIT (25MCG) TABLET PO SCH (08:05)
[2021-01-23] MEDS: Apixaban 5 MG TABLET PO SCH ×2 (08:05→19:34)
[2021-01-23] MEDS: Metoprolol XL (24 HR) Succ 50 MG TAB.ER.24H PO SCH (08:06)
[2021-01-23] MEDS: Gabapentin 300 MG CAPSULE PO SCH ×3 (08:06→19:35)
[2021-01-23] MEDS: QUEtiapine Fumarate 25 MG TABLET PO SCH ×2 (08:06→19:34)
[2021-01-23] MEDS: Ascorbic Acid 500 MG TABLET PO SCH (08:06)
[2021-01-23] MEDS: Haloperidol Lactate 5 MG/ML VIAL IVP PRN (19:34)
[2021-01-23] MEDS: traZODone 50 MG TABLET PO SCH (19:34)
[2021-01-24] MEDS: Dexmedetomidine HCl 400 MCG/100 ML MLS IVC SCH ×3 (00:58→21:25)
[2021-01-24] MEDS: Ipratropium Neb 0.5 MG NEBULIZER IH SCH ×6 (03:34→23:37)
[2021-01-24] MEDS: Levalbuterol Neb 1.25 MG/3 ML IH SCH ×6 (03:34→23:37)
[2021-01-24 04:11] LABS: Hematocrit 29.1 % (37.5-50.1); Hemoglobin 8.8 g/dL (12.9-16.9); Mean Corpuscular HGB Conc 30.2 g/dL (31.6-35.5); Mean Corpuscular Hemoglobin 31.4 pg (28.0-33.3); Mean Corpuscular Volume 103.9 fL (83.0-100.0); Mean Platelet Volume 9.2 fL (9.4-12.4); Platelet Count 216 K/mcL (140-400); Red Cell Distribution Width 14.4 % (11.5-14.5)
[2021-01-24 04:37] LABS: BUN/Creatinine Ratio 27 (6-26); Blood Urea Nitrogen 17 mg/dL (8-23); Calcium 8.5 mg/dL (8.6-10.3); Carbon Dioxide 42 mEq/L (23-29); Chloride 98 mEq/L (98-107); Glucose 111 mg/dL (70-105); Magnesium 1.6 mg/dL (1.6-2.6); Osmolality,Calculated 296 (280-300); Potassium 3.9 mEq/L (3.5-5.1); Sodium 142 mEq/L (136-145); eGFR For African Americans > 60 (> 60); eGFR For Non-African Americans > 60 (> 60)
[2021-01-24] MEDS: Budesonide/Formoterol 160/4.5 1 PUFF INH IH SCH ×2 (07:30→19:49)
[2021-01-24] MEDS: Gabapentin 300 MG CAPSULE PO SCH ×3 (09:10→19:39)
[2021-01-24] MEDS: Aspirin 81 MG TAB.CHEW PO SCH (09:11)
[2021-01-24] MEDS: Cholecalciferol (D-3) 1,000 UNIT (25MCG) TABLET PO SCH (09:11)
[2021-01-24] MEDS: Ascorbic Acid 500 MG TABLET PO SCH (09:11)
[2021-01-24] MEDS: QUEtiapine Fumarate 25 MG TABLET PO SCH ×2 (09:11→19:39)
[2021-01-24] MEDS: Metoprolol XL (24 HR) Succ 50 MG TAB.ER.24H PO SCH (09:11)
[2021-01-24] MEDS: Apixaban 5 MG TABLET PO SCH ×2 (09:11→19:39)
[2021-01-24] MEDS: traZODone 50 MG TABLET PO SCH (19:40)
[2021-01-24] MEDS: *HR* LORazepam 2 MG/ML VIAL IVP PRN ×2 (19:40→23:43)
[2021-01-25] MEDS: Levalbuterol Neb 1.25 MG/3 ML IH SCH ×5 (04:18→20:54)
[2021-01-25] MEDS: Ipratropium Neb 0.5 MG NEBULIZER IH SCH ×5 (04:18→20:54)
[2021-01-25] MEDS: Dexmedetomidine HCl 400 MCG/100 ML MLS IVC SCH ×2 (05:43→11:50)
[2021-01-25] MEDS: Budesonide/Formoterol 160/4.5 1 PUFF INH IH SCH ×2 (08:07→20:54)
[2021-01-25] MEDS: Cholecalciferol (D-3) 1,000 UNIT (25MCG) TABLET PO SCH (08:08)
[2021-01-25] MEDS: Apixaban 5 MG TABLET PO SCH ×2 (08:09→20:10)
[2021-01-25] MEDS: QUEtiapine Fumarate 25 MG TABLET PO SCH ×2 (08:09→20:10)
[2021-01-25] MEDS: Ascorbic Acid 500 MG TABLET PO SCH (08:09)
[2021-01-25] MEDS: Aspirin 81 MG TAB.CHEW PO SCH (08:10)
[2021-01-25] MEDS: Metoprolol XL (24 HR) Succ 50 MG TAB.ER.24H PO SCH (08:10)
[2021-01-25] MEDS: Gabapentin 300 MG CAPSULE PO SCH ×3 (08:10→20:10)
[2021-01-25] MEDS: *HR* LORazepam 2 MG/ML VIAL IVP PRN (20:10)
[2021-01-25] MEDS: traZODone 50 MG TABLET PO SCH (20:10)
[2021-01-26 01:47] LABS: VBG HCO3 41 mEq/L (21-27); VBG PCO2 54 mmHg (41-51); VBG PH 7.49 pH Units (7.32-7.42); VBG PO2 194 mmHg (25-50)
[2021-01-26 01:47] LABS: Hematocrit 28.5 % (37.5-50.1); Hemoglobin 8.9 g/dL (12.9-16.9); Mean Corpuscular HGB Conc 31.2 g/dL (31.6-35.5); Mean Corpuscular Hemoglobin 31.7 pg (28.0-33.3); Mean Corpuscular Volume 101.4 fL (83.0-100.0); Mean Platelet Volume 8.4 fL (9.4-12.4); Platelet Count 202 K/mcL (140-400); Red Blood Count 2.81 M/mcL (4.19-5.50); Red Cell Distribution Width 14.3 % (11.5-14.5); White Blood Count 8.4 K/mcL (4.3-11.1)
[2021-01-26 02:12] LABS: BUN/Creatinine Ratio 33 (6-26); Blood Urea Nitrogen 19 mg/dL (8-23); Calcium 8.4 mg/dL (8.6-10.3); Carbon Dioxide 41 mEq/L (23-29); Chloride 94 mEq/L (98-107); Glucose 87 mg/dL (70-105); Magnesium 1.6 mg/dL (1.6-2.6); Osmolality,Calculated 290 (280-300); Potassium 3.9 mEq/L (3.5-5.1); Sodium 139 mEq/L (136-145); eGFR For African Americans > 60 (> 60); eGFR For Non-African Americans > 60 (> 60)
[2021-01-26] MEDS: Levalbuterol Neb 1.25 MG/3 ML IH SCH ×7 (03:56→23:07)
[2021-01-26] MEDS: Ipratropium Neb 0.5 MG NEBULIZER IH SCH ×7 (03:56→23:07)
[2021-01-26] MEDS: Budesonide/Formoterol 160/4.5 1 PUFF INH IH SCH ×2 (07:47→20:14)
[2021-01-26] MEDS: Apixaban 5 MG TABLET PO SCH ×2 (08:52→19:26)
[2021-01-26] MEDS: Gabapentin 300 MG CAPSULE PO SCH ×3 (08:52→19:26)
[2021-01-26] MEDS: QUEtiapine Fumarate 25 MG TABLET PO SCH ×2 (08:52→19:26)
[2021-01-26] MEDS: Metoprolol XL (24 HR) Succ 50 MG TAB.ER.24H PO SCH (08:52)
[2021-01-26] MEDS: Cholecalciferol (D-3) 1,000 UNIT (25MCG) TABLET PO SCH (08:52)
[2021-01-26] MEDS: Ascorbic Acid 500 MG TABLET PO SCH (08:52)
[2021-01-26] MEDS: Aspirin 81 MG TAB.CHEW PO SCH (08:52)
[2021-01-26] MEDS: Dexmedetomidine HCl 400 MCG/100 ML MLS IVC SCH (16:28)
[2021-01-26] MEDS: *HR* LORazepam 2 MG/ML VIAL IVP PRN (16:43)
[2021-01-26] MEDS: Haloperidol Lactate 5 MG/ML VIAL IVP PRN (17:13)
[2021-01-26] MEDS: Haloperidol Lactate 5 MG/ML VIAL IM PRN (17:40)
[2021-01-26] MEDS: traZODone 50 MG TABLET PO SCH (19:26)
[2021-01-27] MEDS: Levalbuterol Neb 1.25 MG/3 ML IH SCH ×2 (03:10→07:45)
[2021-01-27] MEDS: Ipratropium Neb 0.5 MG NEBULIZER IH SCH ×2 (03:11→07:45)
[2021-01-27] MEDS: Haloperidol Lactate 5 MG/ML VIAL IM PRN (05:25)
[2021-01-27] MEDS: Budesonide/Formoterol 160/4.5 1 PUFF INH IH SCH (07:46)
[2021-01-27] MEDS ORDERED: Haloperidol Oral Conc 10 MG/5 ML UDC PO ONE (08:20)
[2021-01-27] MEDS ORDERED: *HR* LORazepam Oral Conc 2 MG/ML SL PRN (08:21)
[2021-01-27] MEDS ORDERED: Haloperidol Oral Conc 10 MG/5 ML UDC PO PRN (08:23)
[2021-01-27] MEDS: Aspirin 81 MG TAB.CHEW PO SCH (11:10)
[2021-01-27] MEDS: Gabapentin 300 MG CAPSULE PO SCH (11:10)
[2021-01-27] MEDS: Apixaban 5 MG TABLET PO SCH (11:10)
[2021-01-27] MEDS: QUEtiapine Fumarate 25 MG TABLET PO SCH (11:10)
[2021-01-27] MEDS: Metoprolol XL (24 HR) Succ 50 MG TAB.ER.24H PO SCH (11:10)
[2021-01-27] MEDS: Ascorbic Acid 500 MG TABLET PO SCH (11:11)
[2021-01-27] MEDS: Cholecalciferol (D-3) 1,000 UNIT (25MCG) TABLET PO SCH (11:11)
[2021-01-27 11:17] VITALS: BP 108/70; PULSE 76; TEMP 97.9; O2SAT 100
== END 2021-01-27 11:47 | disposition hospice, home (50) | DRG 871 ==
LOC: EMEROOARM 13:05 → ICNU 13:05 → SUATTDRO 01-12 11:01 → 2NNU 01-15 13:04 → 2NENU 01-19 17:12 → 2NNU 01-19 23:25
PROVIDERS: ADMIT Family Medicine; ATTEND Internal Medicine